=== PATIENT | male | born 1940 | race Caucasian/White ===

== ENCOUNTER → 2018-10-05 06:36 | Outpatient (CLI) | payer OTHER, SELFPAY ==
[2018-10-05 08:11] LABS: Blood Urea Nitrogen 18 mg/dL (9-20); Calcium 9.3 mg/dL (8.4-10.2); Carbon Dioxide 29 mmol/L (22-32); Chloride 104 mmol/L (98-107); Estimated Glomerular Filt Rate > 60.0 mL/min (>60); Glucose 102 mg/dL (80-110); HEMOLYSIS < 15 (0-50); Sodium 143 mmol/L (137-145)
[2018-10-05 08:21] LABS: Hematocrit 42.8 % (41-53); Hemoglobin 15.2 g/dL (13.5-17.5); Red Blood Cell Count 4.73 X10^6/uL (4.5-5.9); White Blood Cell Count 3.5 X10^3/uL (4.5-11.0)
[2018-10-05 08:22] LABS: Add Manual Diff / Slide Review NO; Basophils Percent Auto 0.7 % (0-2); Eosinophils Percent Auto 2.8 % (2-4); Lymphocytes Percent Auto 40.7 % (25-40); Mean Corpuscular HGB Conc 35.4 % (30-36); Mean Corpuscular Hemoglobin 32.1 PG (26-34); Mean Corpuscular Volume 90.4 fL (80-100); Monocytes Percent Auto 9.3 % (3-14); Neutrophils Absolute Auto 1600 /uL (3000-5900); Neutrophils Percent Auto 46.5 % (50-75); Platelet Count 164 X10^3/uL (150-400)
== END ==
PROVIDERS: PCP Internal Medicine; Visit Provider Internal Medicine
DX: D70.9 Neutropenia, unspecified (principal)
CPT/HCPCS: 36415; 80048; 85025

== ENCOUNTER → 2019-01-02 09:03 | Outpatient (CLI) | payer OTHER, SELFPAY ==
--- NOTE | 2019-01-02 | DI.RAD.S_ITS ---
PROCEDURE: FL UPPER GI W AIR INDICATIONS: DYSPHAGIA COMPARISON: [facility], CR, CHEST 2 VIEW, 11/01/2016, 11:10. FINDINGS: KUB: Preprocedural baseball inspector and repairer film demonstrates a normal bowel gas pattern. No suspicious abdominal calcifications. Surgical clips project bilaterally over the pelvis. The zipper and button from the patient's pants project over the sacrum. There are mild multilevel degenerative changes of the lumbar spine. Esophagus: Esophageal mucosa is normal on air-contrast views. On single-contrast views, there is normal esophageal peristalsis. No strictures, extrinsic mass effects, or diverticula. No hiatal hernia. There is mild gastroesophageal reflux. Mild residue coating the piriform sinuses and vallecula are noted, which clears with subsequent swallows. There is normal transit of a calibrated barium tablet through the esophagus. Stomach: The stomach is normally distensible, with normal rugal fold thickness. No convincing mucosal masses. Pylorus and duodenal bulb appear normal in morphology. Duodenal folds are normal in thickness as well. IMPRESSION: 1. Mild gastroesophageal reflux. 2. Mild residue collects within the piriform sinuses and vallecula while swallowing, but this clears with subsequent swallows. Consider referral to speech pathology or esophagogastroduodenoscopy if there is continued clinical concern. Dictated by: Aaron Ramos M.D. on 01/02/2019 at 13:52 Approved by: Aaron Ramos M.D. on 01/02/2019 at 14:00
== END ==
PROVIDERS: PCP Internal Medicine; Visit Provider Internal Medicine
DX: R13.10 Dysphagia, unspecified (principal); K21.9 Gastro-esophageal reflux disease without esophagitis
CPT/HCPCS: 74247

== ENCOUNTER → 2019-01-16 11:51 | Outpatient (CLI) | payer OTHER, SELFPAY ==
--- NOTE | 2019-01-16 | DI.RAD.S_ITS ---
PROCEDURE: XR ANKLE LT MIN 3V INDICATIONS: PAIN IN LEFT LEG, ANKLE TECHNIQUE: 3 views of the ankle were acquired. COMPARISON: None. FINDINGS: No acute fracture or dislocation. No significant degenerative change. IMPRESSION: No acute bony abnormality of the left ankle. Dictated by: Addison Cotter M.D. on 01/16/2019 at 12:35 Approved by: Addison Cotter M.D. on 01/16/2019 at 12:36
--- NOTE | 2019-01-16 | DI.US.S_ITS ---
PROCEDURE: US PERIPH VENOUS LOW EXTREM LT INDICATIONS: PAIN IN LEFT LEG, ANKLE TECHNIQUE: Real-time imaging, as well as color and pulse Doppler interrogation, were performed of the lower extremity deep veins from the inguinal ligament to the popliteal fossa. COMPARISON: None. FINDINGS: The deep veins are normally compressible, and free of intraluminal thrombus. Color and pulse Doppler demonstrate normal phasic intraluminal flow. There is normal augmentation response to distal compression maneuver. IMPRESSION: No evidence of DVT in visualized left lower extremity veins. Dictated by: Sammy Capps M.D. on 01/16/2019 at 12:48 Approved by: Sammy Capps M.D. on 01/16/2019 at 12:48
== END ==
PROVIDERS: PCP Internal Medicine; Visit Provider Internal Medicine
DX: M79.605 Pain in left leg (principal); M25.562 Pain in left knee; M25.572 Pain in left ankle and joints of left foot
CPT/HCPCS: 73610; 93971

== ENCOUNTER → 2019-01-17 13:38 | Outpatient (CLI) | payer OTHER, SELFPAY ==
--- NOTE | 2019-01-17 | DI.RAD.S_ITS ---
PROCEDURE: XR KNEE LT 3V INDICATIONS: LEFT KNEE PAIN TECHNIQUE: 3 views of the knee were acquired. COMPARISON: None. FINDINGS: Bones: No fractures or dislocations. Mild tricompartmental knee joint degeneration with small osteophytes. No suspicious bony lesions. Soft tissues: No joint effusion. No suspicious soft tissue calcifications. IMPRESSION: Mild degenerative joint disease. Dictated by: Thien Olivier M.D. on 01/17/2019 at 17:11 Approved by: Thien Olivier M.D. on 01/17/2019 at 17:12
== END ==
PROVIDERS: PCP Internal Medicine; Visit Provider Internal Medicine
DX: M25.562 Pain in left knee (principal); M17.12 Unilateral primary osteoarthritis, left knee
CPT/HCPCS: 73562

== ENCOUNTER 2019-03-06 11:30 | Outpatient (RCR) | payer OTHER, SELFPAY | END 2019-04-04 10:53 | disposition home or self-care (01) | LOC: SP 11:30 | PROVIDERS: PCP Internal Medicine; Visit Provider Otolaryngology | DX: R13.19 Other dysphagia (principal) | CPT/HCPCS: 92526; 92610 ==

== ENCOUNTER → 2019-03-11 12:24 | Outpatient (CLI) | payer OTHER, SELFPAY ==
--- NOTE | 2019-03-11 | DI.MRI.S_ITS ---
PROCEDURE: MR KNEE LT WO CON INDICATIONS: Unspecified internal derangement of left knee TECHNIQUE: Noncontrast sagittal PD fast spin echo and T2 fast spin echo with fat saturation, sagittal 3-D FLASH with fat saturation; coronal T1 spin echo and PD fast spin echo with fat saturation, and axial PD fast spin echo with fat saturation through the knee. COMPARISON: [facility], CR, XR KNEE STANDING BILATERAL, 03/05/2019, 7:38. FINDINGS: Image quality: Excellent. Menisci: There is a horizontally oriented longitudinal tear in the body and anterior horn of the lateral meniscus involving the superior articular surface. There is intrasubstance extension into the anterior meniscal root ligament. The medial meniscus demonstrates intrasubstance degenerative signal extending to the superior articular surface and free edge in the body suggestive of minimal degenerative tearing. Cruciate ligaments: The anterior and posterior cruciate ligaments appear intact. Medial structures: There is mild pain ligamentous edema along the medial collateral ligament which demonstrates mild intermediate signal. Findings are compatible with a grade 1 sprain. The semimembranosus tendon insertions and meniscocapsular junction appear intact. Visualized portions of the pes anserinus tendons appear intact without associated bursal fluid collections. Lateral structures: The lateral collateral ligament, long and short heads of the biceps femoris tendon appear grossly intact but attenuated suggestive of mild sprains/strains. The popliteus tendon also appears attenuated proximally at its origin compatible with a mild strain. Iliotibial band appears intact. Anterior structures: The quadriceps and patellar tendons appear intact. There is slight lateral shift of the patella. No femoral trochlear dysplasia or ventral trochlear prominence. There is edema along the lateral patellofemoral ligament with mild partial tearing at its origin. There is also attenuation at the insertion along the patella compatible with mild partial tearing. There is extensive edema along the patellofemoral ligament inferiorly. There is adjacent edema within the lateral aspect of the infrapatellar fat pad. Bones and cartilage: No bone marrow contusions or fractures. The cartilage of the medial and lateral femorotibial compartments, as well as the patellofemoral compartment, appears normal in thickness. Joint space: There is physiologic knee joint fluid. There is a small Brown's cyst. Normal appearing synovial plicae are incidentally noted. IMPRESSION: 1. Tearing of the lateral meniscus as described and minimal degenerative tearing of the medial meniscus. 2. Partial tearing along the proximal and distal attachments of the lateral patellofemoral ligament with edema along its course inferiorly. Adjacent edema within the infrapatellar fat-pad laterally may represent reactive changes or impingement. 3. Mild sprain of the lateral collateral ligament as well as mild strains of the biceps femoris tendon and popliteal tendon. 4. Grade 1 sprain of the MCL. Dictated by: Johnny James M.D. on 03/11/2019 at 16:47 Approved by: Johnny James M.D. on 03/11/2019 at 16:58
== END ==
PROVIDERS: PCP Internal Medicine; Visit Provider Orthopaedic Surgery
DX: S83.282A Other tear of lateral meniscus, current injury, left knee, initial encounter (principal); S83.422A Sprain of lateral collateral ligament of left knee, initial encounter; S83.412A Sprain of medial collateral ligament of left knee, initial encounter; M71.22 Synovial cyst of popliteal space [Baker], left knee
CPT/HCPCS: 73721

== ENCOUNTER 2019-06-02 16:21 | Emergency (ER) | payer OTHER, SELFPAY ==
[2019-06-02 16:26] VITALS: BP 189/87; PULSE 67; RESP 17; TEMP 36.9; O2SAT 99
[2019-06-02 16:28] VITALS: BP 189/87; PULSE 67; RESP 17; TEMP 36.9; O2SAT 99
--- NOTE | 2019-06-02 21:40 | ED_ITS ---
HPI - Recheck/Abnormal Lab/Rx <SERA Hatch - Last Filed: 06/02/19 21:40> General Chief Complaint: Recheck/Abnormal Lab/Rx Stated Complaint: splint left arm, says fingers turning colors Time Seen by Provider: 06/02/19 16:49 Source: patient and other (significant other) Mode of arrival: ambulatory Limitations: no limitations History of Present Illness HPI narrative: This is a pleasant 79-year-old gentleman, nonsmoker, with medical history of colon cancer and GERD who presents with his partner for an evaluation of ortho glass splint application and swelling to his left hand. He sustained proximal neck/base 5th metacarpal fracture with mild apex dorsal angulation on05/29/19 after he tripped and fall on the outstretched left hand to break her fall. He had an extensive workup done at that time at [facility] to rule out a stroke. He had a boxer splint applied on left arm for the fracture. He has a follow-up appointment with [facility] on this coming Monday for an evaluation. He reports no significant pain and just taking Tylenol at home as needed. He denies weakness, tingling or numbness to left fingers. He was concerned the swellings to left fingers. He states he has been elevating his affected arm. However, has not been using ice since he was afraid to get his splint wet and thought the coolness would not reach through the splint. Related Data Home Medications Medication Instructions Recorded Confirmed ASPIRIN (Aspirin EC) 81 mg PO Q DAY #0 04/21/11 TRIAMCINOLONE ACETONIDE (NASACORT 2 spray INTRANASAL Q DAY PRN #0 04/21/11 AQ) [VITAMIN D] 1,800 iu PO Q DAY #0 04/21/11 CALCIUM CARBONATE (#CALCIUM 600 mg PO QDAY #0 07/20/12 CARBONATE) Multivitamin, Minerals, and 1 tab PO QDAY #0 07/20/12 (#CENTRUM SILVER) loratadine [Claritin] 10 mg PO PRN #0 07/20/12 famotidine 20 mg PO QDAY #0 02/28/18 Review of Systems <SERA Hatch - Last Filed: 06/02/19 21:40> Review of Systems General: Denies fever, chills, fatigue, malaise, sweats. Respiratory: Denies dyspnea, cough, wheezing Cardiovascular: Denies chest pain, palpitations, orthopnea, edema. Gastrointestinal: Denies nausea, vomiting, abdominal pain, diarrhea, constipation, melena. : Denies dysuria, frequency, incontinence, hematuria, urinary retention. Musculoskeletal: See HPI Neurologic: Denies weakness, headache, numbness, change in speech, confusion, seizures, incoordination. Psychiatric: No concerning psychosocial issues. 12-point review of systems is negative except for those stated above. PFSH <SERA Hatch - Last Filed: 06/02/19 21:40> Medical History History of colon cancer (Acute) GERD (gastroesophageal reflux disease) (Chronic) Family History (Updated 06/02/19 @ 21:23 by SERA Hatch) Other Family history non-contributory Social History (Updated 06/02/19 @ 21:23 by SERA Hatch) Smoking Status: Never smoker Exam <SERA Hatch - Last Filed: 06/02/19 21:40> Narrative Exam Narrative: GEN: Alert, oriented x 3, well appearing and nourished, and in no acute distress. Head: Normal cephalic, atraumatic. No scalp or temporal tenderness, palpable mass or rash. EYES: Pupils are equal, round, and reactive to light and accommodation. Extraocular muscles are intact bilaterally. There is no subconjunctival hemorrhage, exudate and sclera non-icteric. ENT: Hearing grossly intact. Nose without bleeding, purulent discharge. Mucous membrane moist, no mucosal lesion. Throat without erythema, tonsillar hypertrophy or exudate. Uvula in midline, airway patent. Neck: Trachea in midline. No JVD, non-tender without lymphadenopathy. No masses or thyroid megaly. Supple, non-tender and meningeal signs. CARDIAC: No peripheral edema, cyanosis or pallor. Capillary refill is less than 2 seconds. No carotid bruits. RESPIRATORY: No cough, wheezes, stridor, respiratory distress, increase work of breathing, or accessary muscle used. EXT: Left arm Yash wrap removed, patient's arm with boxer's splint applied from previous hospital visit. Cap refills are brisk in all fingertips. Finger tips pink in color. No increasing pain with movement of the fingers, no loss of sensation. Noticed mild ecchymosis to 2nd and 3rd digit in the left hand with moderate swelling without tenderness to palpate. SKIN: Warm, dry, normal color for patient. No erythema, lesions or rash other than L hand. NEUROLOGICAL: Alert and oriented to place, time and person. Sensation and motor function intact bilaterally. No facial droops, dysphasia. PSYCHIATRIC: Good judgement and reason, without hallucinations, abnormal affect or abnormal behaviors during the examination. Initial Vital Signs Initial Vital Signs: Vital Signs Temperature 98.5 F 06/02/19 16:26 Pulse Rate 67 06/02/19 16:26 Respiratory Rate 17 06/02/19 16:26 Blood Pressure 189/87 H 06/02/19 16:26 Pulse Oximetry 99 06/02/19 16:26 <Estrellita Doll MD - Last Filed: 06/04/19 07:46> Initial Vital Signs Initial Vital Signs: Vital Signs Temperature 98.5 F 06/02/19 16:26 Pulse Rate 67 06/02/19 16:26 Respiratory Rate 17 06/02/19 16:26 Blood Pressure 189/87 H 06/02/19 16:26 Pulse Oximetry 99 06/02/19 16:26 Course <SERA Hatch - Last Filed: 06/02/19 21:40> Vital Signs - 8 hr 06/02/19 16:26 06/02/19 16:28 Temperature 98.5 F 98.5 F Pulse Rate 67 67 Respiratory Rate 17 17 Blood Pressure 189/87 H Blood Pressure [Right Arm] 189/87 H Pulse Oximetry 99 99 <Estrellita Doll MD - Last Filed: 06/04/19 07:46> Vital Signs - 8 hr 06/02/19 16:26 06/02/19 16:28 Temperature 98.5 F 98.5 F Pulse Rate 67 67 Respiratory Rate 17 17 Blood Pressure 189/87 H Blood Pressure [Right Arm] 189/87 H Pulse Oximetry 99 99 MDM - Recheck/Abnormal Lab/Rx <SERA Hatch - Last Filed: 06/02/19 21:40> Differential Diagnosis Likely other (encounter for splint check and L hand swelling) Medical Records Attestation: I reviewed the patient's medical records. MDM Narrative Medical decision making narrative: This is a pleasant 79-year-old gentleman who presents with his significant other to check on left boxer splint and left hand swelling. He has fractured his proximal neck/base of 5th metacarpal, status post FOOSH on 05/29/2019 while he was taking a day trip to [facility]. He was evaluated and treated at [facility] and [facility]. He is concerned of his left hand swelling and decided to visit ER today for re-evaluation. His fingertips are pink, red brisk cap refills, warmth to touch, and the sensation is intact in all fingertips on affected hand. With the active movement of his fingers per request, his pain did not change from the baseline. The patient reports the pain is not significant at all and he has been taking Tylenol as needed. Noticed moderate swelling to 2nd and 3rd fingers which is not covered under the splint with mild ecchymosis. However, the patient did not complain of pain when these areas were palpated. The patient and his partner was assured with negative findings of compartment syndrome. The patient was instructed to elevate his affected arm above the chest level and continue to use RICE th erapy and to his appointment with scheduled [facility] this coming Monday. We discussed about red flag symptoms such as severe pain it is not proportion, tingling/numbness, pale and cool finger tips, delayed cap refill since these are signs of compartment syndrome and he should be evaluated in ED after loosing his Yash wrap on splint. All questions were addressed at this time and the patient and significant other agrees with findings treatment plan. Discharge Plan Departure Patient Disposition: Home Clinical Impression: History of fracture of hand, Aftercare for cast or splint check or change Discharge Date/Time: 06/02/19 17:32 Interventions: ED Discharge Assessment Last Done: 06/02/19 17:32 Instructions: How to Take Care of Your Splint Activity Restrictions/Additional Instructions: You are seen here today for history left 5th metacarpal fracture in her hand and recheck here splint and hand swelling]. The clinical exam ensures that you do have good circulation and sensation. You are able to move your fingers without increasing pain. You're fingertips warm and has brisk capillary refill. Radial pulse is strong in left hand. What to do: *Continue to Take your medications *Follow up with your primary care provider in 2-3 days and follow up call for an appointment and with [facility] orthopedist on this coming Monday as scheduled. Let them know you were seen in the ED and that we asked you to be seen in follow up. *Return to ED if you have any new, worsening, or concerning symptoms, such as [increasing pain, unable to move her fingers, numbness tingling, cool and pale finger tips, chest pain, difficulty breathing, unable to tolerate fluids, fever, and any other acute concerns]. Prescriptions: No Action ASPIRIN (Aspirin EC) 81 mg PO Q DAY Qty: 0 RF: 0 [VITAMIN D] 1,800 iu PO Q DAY Qty: 0 RF: 0 TRIAMCINOLONE ACETONIDE (NASACORT AQ) 2 spray Intranasal Q DAY PRN Qty: 0 RF: 0 CALCIUM CARBONATE (#CALCIUM CARBONATE) 600 mg PO QDAY Qty: 0 RF: 0 loratadine [Claritin] 10 MG tablet 10 mg PO PRN Qty: 0 RF: 0 Multivitamin, Minerals, and (#CENTRUM SILVER) 1 tab PO QDAY Qty: 0 RF: 0 famotidine 20 MG tablet 20 mg PO QDAY Qty: 0 RF: 0 Referrals: [facility] [Outside] Obi Horton MD [Primary Care Provider] -
== END 2019-06-02 17:32 | disposition home or self-care (01) ==
PROVIDERS: Emergency Provider Nurse Practitioner Family; PCP Internal Medicine
DX: S62.611D Displaced fracture of proximal phalanx of left index finger, subsequent encounter for fracture with routine healing (principal); W01.0XXD Fall on same level from slipping, tripping and stumbling without subsequent striking against object, subsequent encounter; Z47.89 Encounter for other orthopedic aftercare
CPT/HCPCS: 99282

== ENCOUNTER → 2021-03-11 14:31 | Outpatient (ROUT) | payer MEDICARE, SELFPAY ==
[2021-03-11 15:02] LABS: BUN Creatinine Ratio 21.4 (6-22); Blood Urea Nitrogen 18 mg/dL (9-20); Calcium 10.2 mg/dL (8.4-10.2); Carbon Dioxide 27 mmol/L (22-32); Chloride 105 mmol/L (98-107); Cholesterol 131 mg/dL (140-199); Estimated Glomerular Filt Rate > 60.0 mL/min (>60); Glucose 92 mg/dL (80-110); HDL Cholesterol 69 mg/dL (40-60); HEMOLYSIS < 15 (0-50); LDL Cholesterol Calculated 43 mg/dL (<100); Potassium 4.8 mmol/L (3.4-5.1); Sodium 140 mmol/L (137-145); Triglycerides 94 mg/dL (35-150)
[2021-03-11 15:29] LABS: Add Manual Diff / Slide Review NO; Basophils Absolute Auto 0 /uL (0-100); Basophils Percent Auto 0.5 % (0-2); Eosinophils Absolute Auto 100 /uL (0-450); Eosinophils Percent Auto 1.8 % (2-4); Hematocrit 47.1 % (41-53); Hemoglobin 16.3 g/dL (13.5-17.5); Lymphocytes Absolute Auto 1600 /uL (1100-4500); Lymphocytes Percent Auto 28.7 % (25-40); Mean Corpuscular HGB Conc 34.6 % (30-36); Mean Corpuscular Hemoglobin 31.8 PG (26-34); Monocytes Absolute Auto 400 /uL (0-900); Monocytes Percent Auto 7.7 % (3-14); Neutrophils Absolute Auto 3400 /uL (1500-7000); Neutrophils Percent Auto 61.3 % (50-75); Platelet Count 170 X10^3/uL (150-400); Red Blood Cell Count 5.12 X10^6/uL (4.5-5.9); Red Cell Distribution Width 12.9 % (11.6-14.8); White Blood Cell Count 5.5 X10^3/uL (4.5-11.0)
[2021-03-11 21:51] LABS: Aspartate Aminotransferase 40 IU/L (17-59)
== END ==
PROVIDERS: PCP Internal Medicine; Visit Provider Internal Medicine
DX: D70.9 Neutropenia, unspecified (principal)
CPT/HCPCS: 80048; 80061; 84450; 85025

== ENCOUNTER → 2021-11-02 07:37 | Outpatient (CLI) | payer MEDICARE, SELFPAY ==
[2021-11-02 08:59] LABS: Aspartate Aminotransferase 31 IU/L (17-59); BUN Creatinine Ratio 23.2 (6-22); Blood Urea Nitrogen 19 mg/dL (9-20); Calcium 9.8 mg/dL (8.4-10.2); Carbon Dioxide 30 mmol/L (22-32); Chloride 106 mmol/L (98-107); Cholesterol 130 mg/dL (140-199); Estimated Glomerular Filt Rate > 60.0 mL/min (>60); Glucose 99 mg/dL (80-110); HDL Cholesterol 67 mg/dL (40-60); HEMOLYSIS < 15 (0-50); LDL Cholesterol Calculated 42 mg/dL (<100); Potassium 4.4 mmol/L (3.4-5.1); Sodium 139 mmol/L (137-145); Triglycerides 106 mg/dL (35-150)
== END ==
PROVIDERS: PCP Internal Medicine; Referring Provider Internal Medicine; Visit Provider Internal Medicine
DX: E78.2 Mixed hyperlipidemia (principal)
CPT/HCPCS: 36415; 80048; 80061; 84450

== ENCOUNTER → 2022-02-22 06:39 | Outpatient (CLI) | payer OTHER, SELFPAY ==
[2022-02-22 08:25] LABS: Blood Urea Nitrogen 13 mg/dL (9-20); Calcium 9.6 mg/dL (8.4-10.2); Carbon Dioxide 28 mmol/L (22-32); Chloride 108 mmol/L (98-107); Estimated Glomerular Filt Rate > 60 mL/min (>60); Glucose 97 mg/dL (80-110); HEMOLYSIS 16 (0-50); Potassium 4.3 mmol/L (3.4-5.1); Sodium 141 mmol/L (137-145)
== END ==
PROVIDERS: Family Provider Internal Medicine; PCP Internal Medicine; Referring Provider Internal Medicine; Visit Provider Internal Medicine
DX: E78.2 Mixed hyperlipidemia (principal); R35.1 Nocturia
CPT/HCPCS: 36415; 80048; 83036

== ENCOUNTER → 2022-02-24 07:27 | Outpatient (CLI) | payer OTHER, SELFPAY ==
[2022-02-24 08:58] LABS: Prostate Specific Antigen < 0.064 ng/mL (0.10-4.00)
== END ==
PROVIDERS: Family Provider Internal Medicine; PCP Internal Medicine; Referring Provider Specialist; Visit Provider Specialist
DX: R97.20 Elevated prostate specific antigen [PSA] (principal)
CPT/HCPCS: 36415; 84153

== ENCOUNTER → 2022-12-03 07:52 | Outpatient (CLI) | payer OTHER, SELFPAY ==
[2022-12-03 08:47] LABS: Hemoglobin A1C% w Est Avg Glu 5.3 % (4.0-6.0)
[2022-12-03 08:52] LABS: Alanine Aminotransferase 25 IU/L (<50); Albumin Globulin Ratio 1.5 (1.0-2.8); Alkaline Phosphatase 87 U/L (38-126); Aspartate Aminotransferase 29 IU/L (17-59); Bilirubin Total 0.7 mg/dL (0.2-1.3); Blood Urea Nitrogen 15 mg/dL (9-20); Carbon Dioxide 30 mmol/L (22-32); Chloride 101 mmol/L (98-107); Cholesterol 112 mg/dL (140-199); Estimated Glomerular Filt Rate > 60 mL/min (>60); Globulin 2.6 g/dL (1.7-4.1); Glucose 90 mg/dL (80-110); HDL Cholesterol 62 mg/dL (40-60); HEMOLYSIS 21 (0-50); LDL Cholesterol Calculated 39 mg/dL (<100); Potassium 4.4 mmol/L (3.4-5.1); Sodium 137 mmol/L (137-145); Total Protein 6.6 g/dL (6.3-8.2); Triglycerides 55 mg/dL (35-150)
== END ==
PROVIDERS: Family Provider Internal Medicine; PCP Internal Medicine; Referring Provider Internal Medicine; Visit Provider Internal Medicine
DX: R73.01 Impaired fasting glucose (principal); E78.2 Mixed hyperlipidemia
CPT/HCPCS: 36415; 80053; 80061; 83036

== ENCOUNTER 2022-12-12 09:12 | Emergency (ER) | payer OTHER, SELFPAY ==
[2022-12-12] VITALS (10 sets, daily range): BP systolic 130–195; BP diastolic 60–79; PULSE 50–57; RESP 16–24; TEMP 36.7; O2SAT 94–99; BMI 23.6
--- NOTE | 2022-12-12 09:27 | DI.RAD.S_ITS ---
PROCEDURE: XR CHEST 1V INDICATIONS: chest pain TECHNIQUE: One view of the chest was acquired. COMPARISON: [facility], , CHEST 2 VIEW, 11/01/2016, 11:10. FINDINGS: Surgical changes and devices: None. Lungs and pleura: Lungs are clear. No pleural effusions or pneumothorax. Chronic interstitial changes noted Mediastinum: Mediastinal contours appear normal. Heart size is normal. Bones and chest wall: No suspicious bony lesions. Overlying soft tissues appear unremarkable. IMPRESSION: No acute cardiopulmonary findings Approved by: Charan Watson M.D. on 12/12/2022 at 9:23
--- NOTE | 2022-12-12 09:46 | ED_ITS ---
HPI - General Adult General Chief complaint: Syncope Stated complaint: Near syncope Time Seen by Provider: 12/12/22 09:41 Source: patient and family Mode of arrival: Ambulatory Limitations: no limitations History of Present Illness HPI narrative: Patient is an 82-year-old male who has had a history of vertigo in the past who states that this morning he was sitting at his computer earlier today. States he started to feel somewhat lightheaded. It was not a specific vertigo sensation. He would no other associated symptoms to include chest pain or shortness of breath or headache or palpitations or nausea or vomiting. He got up to go to the bathroom and stated that instead he went to his bedroom and ?flopped ?down onto the bed. States the symptoms lasted only a very short period of time. EMS was contacted. Since arrival he has not had any symptoms. Related Data Home Medications Medication Instructions Recorded Confirmed famotidine 20 mg tablet 20 mg PO QDAY ##0 02/28/18 12/02/22 doxylamine succinate 25 mg tablet 25 mg PO BEDTIME PRN 01/05/22 12/02/22 (Unisom (doxylamine)) fluticasone propionate 50 1 spray intranasal DAILY 01/05/22 12/02/22 mcg/actuation nasal spray,suspension (Flonase Allergy Relief) magnesium 250 mg tablet 250 mg PO DAILY 01/05/22 12/02/22 lutein 20 mg-zeaxanthin 1,000 mcg 1 cap PO DAILY 12/02/22 12/02/22 capsule multivitamin 1 tab PO DAILY 12/02/22 12/02/22 Previous Rx's Medication Instructions Recorded atorvastatin 10 mg tablet 10 mg PO DAILY #90 tabs 11/14/22 Allergies Allergy/AdvReac Type Severity Reaction Status Date / Time rosuvastatin AdvReac Mild Joint Pain Verified 12/12/22 09:23 Review of Systems Review of Systems ROS Unobtainable: All systems reviewed & are unremarkable except as noted in HPI and below Patient History Medical History Actinic keratosis (~2020) Allergic rhinitis Chicken pox Colon polyps (~1998) Do not resuscitate Gastroesophageal reflux disease without esophagitis GERD (gastroesophageal reflux disease) (~1976) History of colon cancer History of prostate cancer History of urinary incontinence (~2003) Impaired fasting glucose Measles Medicare annual wellness visit, initial Mixed hyperlipidemia Nocturia Prostate cancer (~2003) ASA (stress urinary incontinence), male Vertigo Surgical History Anesthesia History of inguinal hernia repair (~1971) History of inguinal hernia repair (~07/2004) History of radical prostatectomy (~07/2004) Family History Father Cancer Mother Respiratory failure Brother History of elevated PSA Sister COPD (chronic obstructive pulmonary disease) Grandmother Stroke Other Family history non-contributory Social History marital status: number of children: 0 Smoking Status: Never smoker Type(s) of exercise: walking frequency: 3-4 times per week Smoking Status: Never smoker Substance Use Type: does not use Exam Initial Vital Signs Initial Vital Signs: Vital Signs Pulse Oximetry 97 12/12/22 09:14 Const General: cooperative, healthy appearing, comfortable and No ill appearing HENKS Head: normal to inspection and normocephalic Resp Effort & Inspection: normal respiratory effort Auscultation: clear to auscultation bilaterally Cardio Rate: bradycardic Rhythm: regular rhythm GI Inspection: normal to inspection Skin General: no rashes or lesions noted Neuro General: patient alert, patient awake, patient oriented x3 and moves all extr emities Cranial Nerves: CN's II-XI intact bilaterally Cognition: normal cognition Speech: speech normal Gait: normal gait Motor: muscle tone normal throughout Extrem General: normal to inspection and capillary refill normal Psych Appearance: grossly normal and well kempt Scores GCS Alcides coma scale eye opening: Spontaneous [place] coma scale verbal response: Orientated [place] coma scale motor response: Obey commands Alcides coma scale total score: 15 Course Orders Ordered: ED Orders 12/12/22 09:00 Complete Blood Count AUTO DIFF Stat Comprehensive Metabolic Panel Stat Lipase Stat Magnesium Stat Partial Thromboplastin Time Stat Prothrombin Time INR Stat Troponin & CK Cardiac Panel Stat 12/12/22 09:27 XR chest 1V Stat EKG-12 Lead Stat 12/12/22 09:28 COVID19 -Nasal RAPID/Pre-Proc Stat Discontinued Medications Aspirin (Aspirin 81 Mg Chew Tab) 324 mg PO NOW ONE Stop: 12/12/22 09:28 Last Admin: 12/12/22 09:42 Dose: Not Given Documented By: ROCIO Vital Signs Vital signs: Vital Signs - 8 hr 12/12/22 09:23 12/12/22 09:14 12/12/22 09:15 Temperature 98.1 F Pulse Rate 56 L Respiratory Rate 20 Blood Pressure 195/79 H 195/79 H Pulse Oximetry 98 97 Oxygen Delivery Method Room Air 12/12/22 09:15 12/12/22 09:22 12/12/22 09:22 Temperature Pulse Rate 57 L 55 L Respiratory Rate Blood Pressure 181/72 H Pulse Oximetry 98 99 Oxygen Delivery Method 12/12/22 09:30 12/12/22 09:31 12/12/22 09:31 Temperature Pulse Rate 55 L 55 L Respiratory Rate 22 16 Blood Pressure 150/67 H Pulse Oximetry 97 97 Oxygen Delivery Method 12/12/22 10:00 12/12/22 10:00 12/12/22 10:30 Temperature Pulse Rate 50 L 50 L Respiratory Rate 19 21 Blood Pressure 141/64 H Pulse Oximetry 95 96 Oxygen Delivery Method 12/12/22 10:31 12/12/22 10:31 12/12/22 10:52 Temperature Pulse Rate 51 L 50 L Respiratory Rate 24 18 Blood Pressure 133/62 130/60 Pulse Oximetry 95 94 Oxygen Delivery Method Room Air Medical Decision Making Lab Data Lab results reviewed: Yes I reviewed the patient's lab results. 12/12/22 09:00 12/12/22 09:00 Labs: Lab Results 12/12/22 12/12/22 12/12/22 Range/Units 09:00 09:00 09:00 WBC 4.1 L (4.5-11.0) X10^3/uL RBC 5.02 (4.5-5.9) X10^6/uL Hgb 16.0 (13.5-17.5) g/dL Hct 46.1 (41-53) % MCV 91.7 (80-100) fL MCH 31.8 (26-34) PG MCHC 34.7 (30-36) % RDW 13.2 (11.6-14.8) % Plt Count 172 (150-400) X10^3/uL Neut % (Auto) 51.6 (50-75) % Lymph % (Auto) 35.2 (25-40) % Wilkin % (Auto) 7.4 (3-14) % Eos % (Auto) 5.1 H (2-4) % Baso % (Auto) 0.7 (0-2) % Neut # (Auto) 2100 (8595-0069) /uL Lymph # (Auto) 1400 (5804-5407) /uL Wilkin # (Auto) 300 (0-900) /uL Eos # (Auto) 200 (0-450) /uL Baso # (Auto) 0 (0-100) /uL PT 11.1 (10.1-12.7) SECONDS INR 1.0 (0.9-1.3) APTT 33 (26-36) SECONDS Sodium 141 (137-145) mmol/L Potassium 4.9 (3.4-5.1) mmol/L Chloride 101 (98-107) mmol/L Carbon Dioxide 32 (22-32) mmol/L BUN 19 (9-20) mg/dL Creatinine 0.88 (0.66-1.25) mg/dL Estimated GFR > 60 (>60) mL/min BUN/Creatinine Ratio 21.6 (6-22) Glucose 117 H (80-110) mg/dL Calcium 10.1 (8.4-10.2) mg/dL Magnesium 2.2 (1.6-2.3) mg/dL Total Bilirubin 0.6 (0.2-1.3) mg/dL AST 30 (17-59) IU/L ALT 25 (<50) IU/L Alkaline Phosphatase 89 (38-126) U/L Total Creatine Kinase 34 L (55-170) U/L CK-MB (CK-2) TNP CK-MB (CK-2) Rel Index TNP Troponin I < 0.012 (0.01-0.034) ng/mL Total Protein 7.2 (6.3-8.2) g/dL Albumin 4.3 (3.5-5.0) g/dL Globulin 2.9 (1.7-4.1) g/dL Albumin/Globulin Ratio 1.5 (1.0-2.8) Lipase 125 (23-300) U/L SARS-CoV-2 (PCR) (Negative) 12/12/22 Range/Units 09:28 WBC (4.5-11.0) X10^3/uL RBC (4.5-5.9) X10^6/uL Hgb (13.5-17.5) g/dL Hct (41-53) % MCV (80-100) fL MCH (26-34) PG MCHC (30-36) % RDW (11.6-14.8) % Plt Count (150-400) X10^3/uL Neut % (Auto) (50-75) % Lymph % (Auto) (25-40) % Wilkin % (Auto) (3-14) % Eos % (Auto) (2-4) % Baso % (Auto) (0-2) % Neut # (Auto) (9668-6078) /uL Lymph # (Auto) (8437-5960) /uL Wilkin # (Auto) (0-900) /uL Eos # (Auto) (0-450) /uL Baso # (Auto) (0-100) /uL PT (10.1-12.7) SECONDS INR (0.9-1.3) APTT (26-36) SECONDS Sodium (137-145) mmol/L Potassium (3.4-5.1) mmol/L Chloride (98-107) mmol/L Carbon Dioxide (22-32) mmol/L BUN (9-20) mg/dL Creatinine (0.66-1.25) mg/dL Estimated GFR (>60) mL/min BUN/Creatinine Ratio (6-22) Glucose (80-110) mg/dL Calcium (8.4-10.2) mg/dL Magnesium (1.6-2.3) mg/dL Total Bilirubin (0.2-1.3) mg/dL AST (17-59) IU/L ALT (<50) IU/L Alkaline Phosphatase (38-126) U/L Total Creatine Kinase (55-170) U/L CK-MB (CK-2) CK-MB (CK-2) Rel Index Troponin I (0.01-0.034) ng/mL Total Protein (6.3-8.2) g/dL Albumin (3.5-5.0) g/dL Globulin (1.7-4.1) g/dL Albumin/Globulin Ratio (1.0-2.8) Lipase (23-300) U/L SARS-CoV-2 (PCR) Negative (Negative) Imaging Data Chest x-ray: Radiologist's Impression: [place] [id number] [place] [id number] XRay Report Signed Patient: Oracio Gill MR#: [id number] : 1940 Acct:[id number] Age/Sex: 82 / M Date of Service: 12/12/22 Loc: ED Accession Number: [id number] ?? Procedure: XR chest 1V Ordering Provider: Ian Nye D.O. PROCEDURE:? XR CHEST 1V ? INDICATIONS:? chest pain ? TECHNIQUE:? One view of the chest was acquired.? ? COMPARISON:? [facility], , CHEST 2 VIEW, 11/01/2016, 11:10. ? FINDINGS:? ? Surgical changes and devices:? None.? ? Lungs and pleura:? Lungs are clear.? No pleural effusions or pneumothorax.? Chronic interstitial changes noted ? Mediastinum:? Mediastinal contours appear normal.? Heart size is normal.? ? Bones and chest wall:? No suspicious bony lesions.? Overlying soft tissues appear unremarkable.? ? IMPRESSION:? No acute cardiopulmonary findings ? ? ? Approved by: Charan Watson M.D. on 12/12/2022 at 9:23? ECG Data Attestation: I personally reviewed and interpreted this ECG as follows: Interpretation: Sinus bradycardia First-degree AV block, Ventricular rate 56 VT interval 288 milliseconds Normal QRS Normal QTC No ST T wave changes MDM Narrative Medical decision making narrative: Patient has been asymptomatic since arrival here in the emergency department he ambulated without issue. Was bradycardic and does have a first-degree AV block but no other arrhythmias. Labs are unremarkable. Chest x-ray is unremarkable. Considered arrhythmia. I did discuss this with the patient. Discussed the possibility of him having a Holter monitor ordered by his primary doctor. He has no focal neurologic symptoms that make me concerned for CVA/TIA. Also considered vertigo however he is asymptomatic now and what he describes his more consistent with a lightheadedness and not vertigo. Low suspicion for ACS. I did discuss all this with the patient and family at bedside. Will discharge patient home with strict return precautions. He expressed understanding and agreement. Discharge Plan Departure Patient Disposition: Home Clinical Impression: Dizziness Instructions: DI for Dizziness-Nonvertigo Activity Restrictions/Additional Instructions: I do recommend that you continue to take all of your medications as directed. I would also recommend that you take your blood pressure at home. Contact your primary doctor for follow-up to discuss the indications for a Holter monitor. Return to the emergency department for any new symptoms. Prescriptions: No Action famotidine 20 MG tablet 20 mg PO QDAY Qty: 0 atorvastatin 10 mg tablet 10 mg PO DAILY Qty: 90 3RF multivitamin Tablet 1 tab PO DAILY lutein-zeaxanthin 20 mg- 1,000 mcg capsule 1 cap PO DAILY fluticasone propionate [Flonase Allergy Relief] 50 mcg/actuation spray,suspension 1 spray intranasal DAILY Rx Instructions: administer into each nostril Unisom (doxylamine) 25 mg tablet 25 mg PO BEDTIME PRN magnesium 250 mg tablet 250 mg PO DAILY Referrals: Obi Horton MD [Primary Care Provider] - Stand Alone Forms: Patient Portal/API
[2022-12-12 10:02] LABS: COVID19 -Nasal RAPID Negative (Negative)
[2022-12-12 10:04] LABS: Add Manual Diff / Slide Review NO; Basophils Absolute Auto 0 /uL (0-100); Basophils Percent Auto 0.7 % (0-2); Eosinophils Absolute Auto 200 /uL (0-450); Eosinophils Percent Auto 5.1 % (2-4); Hematocrit 46.1 % (41-53); Lymphocytes Absolute Auto 1400 /uL (1100-4500); Lymphocytes Percent Auto 35.2 % (25-40); Mean Corpuscular HGB Conc 34.7 % (30-36); Mean Corpuscular Hemoglobin 31.8 PG (26-34); Mean Corpuscular Volume 91.7 fL (80-100); Monocytes Absolute Auto 300 /uL (0-900); Monocytes Percent Auto 7.4 % (3-14); Neutrophils Absolute Auto 2100 /uL (1500-7000); Neutrophils Percent Auto 51.6 % (50-75); Platelet Count 172 X10^3/uL (150-400); Prothrombin Time 11.1 SECONDS (10.1-12.7); Red Blood Cell Count 5.02 X10^6/uL (4.5-5.9); Red Cell Distribution Width 13.2 % (11.6-14.8); White Blood Cell Count 4.1 X10^3/uL (4.5-11.0)
[2022-12-12 10:07] LABS: PTT Partial Thromboplastin Tim 33 SECONDS (26-36)
[2022-12-12 10:20] LABS: Alanine Aminotransferase 25 IU/L (<50); Albumin 4.3 g/dL (3.5-5.0); Albumin Globulin Ratio 1.5 (1.0-2.8); Alkaline Phosphatase 89 U/L (38-126); Aspartate Aminotransferase 30 IU/L (17-59); BUN Creatinine Ratio 21.6 (6-22); Bilirubin Total 0.6 mg/dL (0.2-1.3); Blood Urea Nitrogen 19 mg/dL (9-20); Calcium 10.1 mg/dL (8.4-10.2); Carbon Dioxide 32 mmol/L (22-32); Chloride 101 mmol/L (98-107); Creatine Kinase 34 U/L (55-170); Estimated Glomerular Filt Rate > 60 mL/min (>60); Globulin 2.9 g/dL (1.7-4.1); Glucose 117 mg/dL (80-110); Lipase 125 U/L (23-300); Magnesium 2.2 mg/dL (1.6-2.3); Potassium 4.9 mmol/L (3.4-5.1); Sodium 141 mmol/L (137-145); Total Protein 7.2 g/dL (6.3-8.2)
[2022-12-12 10:30] LABS: Troponin I < 0.012 ng/mL (0.01-0.034)
[2022-12-12 11:43] LABS: HEMOLYSIS < 15 (0-50)
== END 2022-12-12 11:10 | disposition home or self-care (01) ==
PROVIDERS: Emergency Provider Emergency Medicine; Family Provider Internal Medicine; PCP Internal Medicine
DX: R42 Dizziness and giddiness (principal); R07.9 Chest pain, unspecified; Z20.822 Contact with and (suspected) exposure to COVID-19
CPT/HCPCS: 36415; 71045; 80053; 82550; 83690; 83735; 84484; 85025; 85610; 85730; 87635; 93005; 93010; 99283; 99284; C9803

== ENCOUNTER → 2023-02-04 08:38 | Outpatient (CLI) | payer OTHER, SELFPAY | PROVIDERS: Family Provider Internal Medicine; PCP Internal Medicine; Visit Provider Nurse Practitioner Family | DX: J02.9 Acute pharyngitis, unspecified (principal) | CPT/HCPCS: 87070 ==

== ENCOUNTER → 2023-07-20 09:21 | Outpatient (CLI) | payer OTHER, SELFPAY ==
[2023-07-20 10:46] LABS: Hematocrit 43.8 % (41-53); Hemoglobin 15.3 g/dL (13.5-17.5); Mean Corpuscular HGB Conc 35.1 % (30-36); Mean Corpuscular Hemoglobin 31.8 PG (26-34); Mean Corpuscular Volume 90.8 fL (80-100); Platelet Count 177 X10^3/uL (150-400); Red Blood Cell Count 4.82 X10^6/uL (4.5-5.9); Red Cell Distribution Width 13.2 % (11.6-14.8); White Blood Cell Count 4.7 X10^3/uL (4.5-11.0)
[2023-07-20 10:49] LABS: Alanine Aminotransferase 26 IU/L (<50); Albumin 4.1 g/dL (3.5-5.0); Albumin Globulin Ratio 1.6 (1.0-2.8); Alkaline Phosphatase 77 U/L (38-126); Amylase 93 U/L (30-110); Aspartate Aminotransferase 28 IU/L (17-59); BUN Creatinine Ratio 19.8 (6-22); Bilirubin Total 0.7 mg/dL (0.2-1.3); Blood Urea Nitrogen 18 mg/dL (9-20); Calcium 10.1 mg/dL (8.4-10.2); Carbon Dioxide 31 mmol/L (22-32); Chloride 100 mmol/L (98-107); Estimated Glomerular Filt Rate > 60 mL/min (>60); Globulin 2.5 g/dL (1.7-4.1); Glucose 77 mg/dL (80-110); HEMOLYSIS < 15 (0-50); Lipase 228 U/L (23-300); Sodium 137 mmol/L (137-145); Total Protein 6.6 g/dL (6.3-8.2)
[2023-07-20 11:47] LABS: Appearance Urine UA CLEAR; Bilirubin Urine UA NEGATIVE (NEGATIVE); Color Urine UA YELLOW; Glucose Urine UA NEGATIVE (Negative); Ketones Urine UA NEGATIVE (NEGATIVE); Leukocyte Esterase Urine UA NEGATIVE (NEGATIVE); Nitrite Urine UA NEGATIVE (Negative); Occult Blood Urine UA NEGATIVE (Negative); Protein Urine UA NEGATIVE (Negative); Specific Gravity Urine UA 1.015 (1.000-1.035); Urobilinogen Urine UA 0.2 E.U./dL (0.2); pH Urine UA 7.5 (4.5-8.0)
[2023-07-20 12:23] LABS: Bacteria Urine None Seen; Culture Indicated Urine Cult Not Indicated; RBC Urine None Seen (0-5/HPF); Squamous Epithelial Cell Urine None Seen (0-5/HPF); WBC Urine None Seen (0-5/HPF)
== END ==
PROVIDERS: Family Provider Internal Medicine; PCP Internal Medicine; Referring Provider Internal Medicine; Visit Provider Internal Medicine
DX: R10.9 Unspecified abdominal pain (principal)
CPT/HCPCS: 36415; 80053; 81001; 82150; 83690; 85027

== ENCOUNTER → 2024-03-15 08:07 | Outpatient (CLI) | payer OTHER, SELFPAY ==
[2024-03-15 08:54] LABS: BUN Creatinine Ratio 18.3 (6-22); Blood Urea Nitrogen 17 mg/dL (9-20); Calcium 10.1 mg/dL (8.4-10.2); Carbon Dioxide 34 mmol/L (22-32); Chloride 105 mmol/L (98-107); Estimated Glomerular Filt Rate > 60 mL/min (>60); Glucose 73 mg/dL (80-110); HEMOLYSIS < 15 (0-50); Potassium 4.3 mmol/L (3.4-5.1); Sodium 140 mmol/L (137-145)
[2024-03-15 09:40] LABS: Hematocrit 43.8 % (41-53); Hemoglobin 15.1 g/dL (13.5-17.5); Mean Corpuscular HGB Conc 34.4 % (30-36); Mean Corpuscular Hemoglobin 31.9 PG (26-34); Mean Corpuscular Volume 92.7 fL (80-100); Platelet Count 191 X10^3/uL (150-400); Red Blood Cell Count 4.72 X10^6/uL (4.5-5.9); Red Cell Distribution Width 13.3 % (11.6-14.8); White Blood Cell Count 5.4 X10^3/uL (4.5-11.0)
[2024-03-15 09:42] LABS: Add Manual Diff / Slide Review YES
[2024-03-15 10:26] LABS: Neutrophils Absolute Manual 2646 /uL (3000-5900); RBC Morphology Normal Morphology; Total Cells Counted 100
== END ==
LOC: RESP 08:08
PROVIDERS: Family Provider Internal Medicine; PCP Internal Medicine; Referring Provider Orthopaedic Surgery; Visit Provider Orthopaedic Surgery
DX: Z01.818 Encounter for other preprocedural examination (principal); Z01.812 Encounter for preprocedural laboratory examination
CPT/HCPCS: 36415; 80048; 85007; 85025; 93005

== ENCOUNTER → 2024-03-16 14:28 | Outpatient (CLI) | payer OTHER, SELFPAY ==
--- NOTE | 2024-03-16 14:29 | DI.CT.S_ITS ---
PROCEDURE: CT UE LT WO CON INDICATIONS: Primary osteoarthritis, left shoulder TECHNIQUE: Noncontrast 0.75 mm thick sections acquired from the acromioclavicular joint to the inferior scapula, with coronal and sagittal reformatting. COMPARISON: [facility] [place], [place], XR SHOULDER 2+ VIEWS LEFT, 03/06/2024, 14:51. FINDINGS: Image quality: Excellent. Bones: No acute fracture or dislocation. Mild acromioclavicular joint space narrowing with tiny juxta-articular osteophytosis and subchondral cysts. Mild glenohumeral joint space narrowing. Narrowing of the acromiohumeral interval measuring 5 mm. No displaced rib fractures. Soft tissues: No suspicious pulmonary nodule or consolidation. Mild calcification of the thoracic aorta. No visualized coronary vessel calcifications. No enlarged lymph nodes by size criteria. Heart size is at the upper limits of normal. IMPRESSION: 1. No acute fracture or dislocation. 2. Mild acromioclavicular and glenohumeral joint osteoarthritis. 3. Narrowing of the acromiohumeral interval measuring 5 mm compatible with rotator cuff pathology, as seen MRI shoulder dated April 22, 2015. If clinical symptoms persist, a repeat MRI can be performed for further evaluation. Dictated by: Natalie Weber M.D. on 03/17/2024 at 8:39 Approved by: Natalie Weber M.D. on 03/17/2024 at 8:44
== END ==
PROVIDERS: Family Provider Internal Medicine; PCP Internal Medicine; Referring Provider Orthopaedic Surgery; Visit Provider Orthopaedic Surgery
DX: M19.012 Primary osteoarthritis, left shoulder (principal)
CPT/HCPCS: 73200

== ENCOUNTER 2024-04-25 12:54 | Day surgery (SDC) | payer OTHER, SELFPAY ==
[2024-04-16 12:30] VITALS: BMI 23.0
--- NOTE | 2024-04-25 07:35 | DI.RAD.S_ITS ---
PROCEDURE: XR SHOULDER LT MIN 2V INDICATIONS: TSA TECHNIQUE: 1 views of the shoulder were acquired. COMPARISON: [facility] [place], JESS, XR SHOULDER 2+ VIEWS LEFT, 03/06/2024, 14:51. FINDINGS: Bones: Left shoulder arthroplasty. Hardware appears intact without evidence of complication. No fractures or dislocations. No suspicious bony lesions. Visualized ribs appear intact. Soft tissues: Overlying postsurgical changes. IMPRESSION: Expected postoperative appearance of left shoulder arthroplasty. Dictated by: Jamal Sanders M.D. on 04/25/2024 at 17:33 Approved by: Jamal Sanders M.D. on 04/25/2024 at 17:34
--- NOTE | 2024-04-25 13:07 | P.HP_ITS ---
History of Present Illness History of Present Illness Date Patient Seen: 04/25/24 Time Patient Seen: 13:07 Chief complaint: Left shoulder glenohumeral arthritis Narrative: Patient presents today seen preoperatively for his left shoulder glenohumeral arthritis. He has not had any changes in his symptoms and he still has severe glenohumeral pain. Still has significant limitation with range of motion. We would like to go forward with surgery today. [facility] Medical History (Updated 04/16/24 @ 13:15 by Meghana Gerber RN) Arthritis Prostate cancer (2003) Seasonal allergies Essential hypertension History of colonic polyps BPPV (benign paroxysmal positional vertigo) History of prostate cancer Impaired fasting glucose Allergic rhinitis Do not resuscitate Gastroesophageal reflux disease without esophagitis Mixed hyperlipidemia ASA (stress urinary incontinence), male Actinic keratosis (~2020) Measles Chicken pox Vertigo History of urinary incontinence (~2003) GERD (gastroesophageal reflux disease) (~1976) Surgical History (Updated 04/16/24 @ 13:13 by Meghana Gerber RN) Hx of bilateral cataract extraction Anesthesia History of radical prostatectomy (~07/2004) History of inguinal hernia repair (~07/2004) History of inguinal hernia repair (~1971) Family History Father Cancer Mother Respiratory failure Brother History of elevated PSA Sister COPD (chronic obstructive pulmonary disease) Grandmother Stroke Other Family history non-contributory Social History marital status: number of children: 0 household members: spouse Smoking Status: Former smoker alcohol intake: current Type(s) of exercise: walking frequency: 3-4 times per week Meds Home Medications and Allergies Home Medications Medication Instructions Recorded Confirmed Type famotidine 20 mg tablet 20 mg PO QDAY ##0 02/28/18 04/16/24 History doxylamine succinate 25 mg tablet 25 mg PO BEDTIME PRN Sleep 01/05/22 04/16/24 History (Unisom (doxylamine)) magnesium 250 mg tablet 250 mg PO DAILY 01/05/22 04/16/24 History multivitamin 1 tab PO DAILY 12/02/22 04/16/24 History lutein 20 mg-zeaxanthin 1,000 mcg 2 cap PO DAILY 07/20/23 04/16/24 History capsule amlodipine 5 mg tablet 5 mg PO DAILY #90 tabs 12/20/23 04/16/24 Rx fluticasone propionate 50 1 spray intranasal DAILY PRN 01/09/24 04/16/24 History mcg/actuation nasal Seasonal allergies spray,suspension (Flonase Allergy Relief) atorvastatin 10 mg tablet 10 mg PO DAILY #90 tabs 02/08/24 04/16/24 Rx naproxen sodium 220 mg capsule 220 mg PO DAILY PRN Pain 04/16/24 04/16/24 History (Aleve) Allergies Allergy/AdvReac Type Severity Reaction Status Date / Time rosuvastatin AdvReac Mild Joint Pain Verified 01/29/24 08:20 Review of Systems Review of Systems ROS: Yes All systems reviewed with the patient and are negative except as otherwise documented Exam Narrative Exam Narrative: HEENT: Head atraumatic eyes anicteric moist mucous membranes Cardiovascular: Palpable peripheral pulses extremities are warm and well perfused Respiratory: Breathing comfortably on room air Psychiatric: Appropriate mood and affect Neuro: No acute deficits Musculoskeletal: Exam of left upper extremity demonstrates limited range of motion with forward elevation as noted on previous office note. Sensation intact in median, radial, ulnar, axillary nerve distributions. Assessment & Plan Assessment & Plan narrative: Assessment: Left rotator cuff tear arthropathy Plan: As discussed previously we will plan on a left reverse total shoulder arthroplasty. Risks and benefits of surgery were discussed again including the risk of infection, damage to internal structures, bleeding, nerve injury, instability, need for revision surgery, blood clots, anesthesia and . No guarantees were made regarding outcomes. Patient expressed understanding and accepted these risks and wished to go forward with surgery and consent was signed.
[2024-04-25] MEDS: LACTATED RINGERS 1,000 ML 42 ML IV ×2 (13:25→15:58)
[2024-04-25] MEDS: ACETAMINOPHEN 325 MG TABLET 975 MG PO (13:25)
[2024-04-25 13:27] VITALS: BP 147/73; PULSE 60; RESP 16; TEMP 36.4; O2SAT 100; BMI 23.5
--- NOTE | 2024-04-25 14:36 | SUR.PREOP ---
Block start time [1419 time out - needle [id number]] . Monitoring initiated and maintained throughout procedure. Oxygen and medications given per anesthesiologist. Patient remained stable throughout procedure, no adverse reactions noted. Block end time [1428].
[2024-04-25] MEDS: CEFAZOLIN 2 GM/100 ML PREMIX 100 ML IV (15:27)
--- NOTE | 2024-04-25 15:44 | SUR.OPER ---
Beach chair with Kobe/Carrie shoulder positioner. Lower body on padded OR bed. Head in foam padded head cradle, secured with straps. Non-operative arm secured <90 degrees abduction. Pillow under knees. Safety belt at thigh. Cloth tape over blanket over lower legs.
[2024-04-25] MEDS: BUPIVACAINE 0.25% (PF) 60 ML, EPINEPHrine 0.3 MG INJ (15:48)
[2024-04-25] MEDS: TRANEXAMIC ACID 1,000 MG VIAL 1000 MG INJ ×2 (15:49→15:50)
--- NOTE | 2024-04-25 16:32 | PM.OP.1 ---
Operative Date/Time/Diagnoses Date of procedure: 04/25/24 Time of procedure: 16:32 Pre-op diagnosis: Left glenohumeral arthritis Post-op diagnosis: same Procedure & Clinicians Procedure: Left reverse total shoulder arthroplasty Same procedure as scheduled: Yes Indications: Indications: This is a who has rotator cuff arthropathy. Symptoms have been present for years, insidious onset. Patient has failed a reasonable attempt at conservative therapy. After extensive discussion in clinic, they wished to go forward with surgery. Risks and benefits were described including the risk of infection, bleeding, damage to internal structures including nerves. We also discussed the risk of failure of surgery and the need for revision surgery as well as the risk of anesthesia. The patient expressed understanding with these risks and wished to go forward with surgery. Surgeon: Tomas Yuan Insurance Executive: Mary Hamlin Anesthesia Type: General Operative Notes Findings: Findings: Osteoarthritis of the glenoid and humeral head as well as a defient rotator cuff as noted on preoperative imaging and under direct visualization Closure Type: primary Specimen(s): none sent Prosthetic devices, grafts, tissues, transplants, or devices: Tornier implants Base plate: standard 25 mm, +3 mm offset Glenosphere: Standard 36 mm Stem: Perform 3+ Poly: +0 concentric Estimated Blood Loss (mL): 100 Procedure in detail: Patient was seen in the preoperative holding unit. The correct left shoulder was identified and marked with my initials. Again we discussed the risks and benefits of surgery and they wished to go forward with surgery. The patient was brought back to the operating room and placed supine on the operating table. Smooth endotracheal intubation was performed by anesthesia. All prominences were padded and they were placed into the beach chair position. Intravenous antibiotics were given. The left shoulder was then prepped with the standard sterile preparation and draping. A time-out was then performed in my initials were again identified on the correct shoulder. 1 g of IV tranexamic acid was given. A standard deltopectoral incision was made. Skin flaps were made. The cephalic vein was identified and retracted laterally. This was protected throughout the remainder of the case. Sharp dissection was made along the deltoid, subacromial and subcoracoid space to release adhesions. The conjoined tendon was identified and the axillary nerve was palpated and continuous using the tug test. It was protected throughout the remainder of the case. A brown retractor was placed underneath the deltoid muscle and a darach retractor underneath the conjoint tendon. The subscapularis muscle was ntoed to be intact. The anterior circumflex artery and associated veins on the lower border of the subscapularis were identified and tied off using 0-Vicryl. The biceps tendon was identified in the bicipital groove. This was released from its sheath, and taken from its origin on the glenoid and tied into the pectoralis tendon for a solid tenodesis. We then began a subscapularis peel. The subscapularis was tagged with an Ethibond suture. A 360 degree circumferential release of the subscapularis was performed with protection of the axillary nerve. The coracohumeral ligament was released at the base of the coracoid. The shoulder was then dislocated. Osteophytes were removed using combination of rongeur and osteotome. The rotator cuff was noted to be insufficient. An intramedullary guide was used set at version of 20?. Using an oscillating saw a conservative humeral head cut was made. Impaction reamers were reamed up to a size 3 stem with a built-in angle 135?. A neck protector was placed. Attention was then turned to the glenoid. After retracting the humeral head posteriorly a circumferential release was performed of the capsule with protection of the axillary nerve. The labrum was then released starting at the biceps anchor and going around the rim a small amount of triceps was released from the inferior glenoid. A center guide pin was then placed using the guide, followed by Reamer. After adequate cartilage was removed the boss was reamed and the centeral hole was drilled and measured. The base plate was then implanted and screwed into place. The peripheral screws were then sequentially drilled, measured, and placed. A 36 standard glenosphere was then selected and screwed into place onto the base plate. Turning back to the humerus, the humeral head was delivered and trialed with a 0 concentric. The arm was taken through range of motion and this was felt to be stable. The trial was then removed and a dilute Betadine wash was then performed with 1 L of sterile saline. Before placing the final implant, drill holes were made in the bicipital groove for the subscapularis repair, and sutures were passed through the drill holes. The final stem was then impacted into the humerus. The shoulder was then reduced and again brought through range of motion and was felt to be stable. The subscapularis was then repaired using a modified racking hitch with nice loupes. The skin was closed with 2-0 vicryl and 3-0 Monocryl followed by Aquacel dressing. Patient was awoken from anesthesia and brought back to the postoperative recovery unit without issue. They were placed into a sling. Assisting participation: This operation could not have been safely performed (without compromising the technical results or length of the procedure) without the assistance of a skilled surgical device sales representative. The surgical device sales representative was medically necessary for proper positioning, retraction and manipulation of instruments, proper exposure, graft prep, and manipulation of tissue. Complications: none Post-operative Condition: stable Disposition: PACU Plan for aftercare: Postoperative instructions: Sling to remain on for 6 weeks. No external rotation past neutral for 6 weeks. Okay for the sling to come off for shower. Okay to shower over the Aquacel dressing. If any water gets underneath the dressing, remove the dressing. First postoperative visit in 2 weeks.
[2024-04-25 16:57] VITALS: BP 156/56; PULSE 59; RESP 18; TEMP 36; O2SAT 94
[2024-04-25 17:04] VITALS: BP 150/59; PULSE 56; RESP 17; O2SAT 98
[2024-04-25 17:15] VITALS: BP 153/67; PULSE 54; RESP 17; O2SAT 97
[2024-04-25 17:23] VITALS: BP 160/64; PULSE 67; RESP 14; TEMP 36.1; O2SAT 98
[2024-04-25 17:26] VITALS: BP 148/59; PULSE 59; RESP 14; O2SAT 96
== END 2024-04-25 18:10 | disposition home or self-care (01) ==
PROVIDERS: Family Provider Internal Medicine; PCP Internal Medicine; Referring Provider Orthopaedic Surgery; Visit Provider Orthopaedic Surgery
PROC: (CPT 23472; principal; 2024-04-25 15:15)
DX: M19.012 Primary osteoarthritis, left shoulder (principal); G89.18 Other acute postprocedural pain; M25.712 Osteophyte, left shoulder
CPT/HCPCS: 23472; 64450; 73030; C1776; J0171; J0690; J1100; J2250; J2405; J2704; J3010

== ENCOUNTER 2024-09-13 09:45 | Outpatient (RCR) | payer OTHER, SELFPAY ==
--- NOTE | 2024-04-26 15:57 | PT-OP ANOTE ---
PT called requesting protocol for pt upcoming evaluation on 04/29. Surgeon's office sent message to triage
--- NOTE | 2024-04-29 15:54 | PT.OIE ---
Current Diagnoses Primary osteoarthritis, left shoulder (04/29/24) Stiffness of left shoulder, not elsewhere classified (04/29/24) Weakness (04/29/24) Past Medical History (Last Updated 04/16/24 @ 13:15 by Meghana Gerber, CYRUS) Actinic keratosis (~2020) Allergic rhinitis Arthritis BPPV (benign paroxysmal positional vertigo) Chicken pox Do not resuscitate Essential hypertension Gastroesophageal reflux disease without esophagitis GERD (gastroesophageal reflux disease) (~1976) History of colonic polyps History of prostate cancer History of urinary incontinence (~2003) Impaired fasting glucose Measles Mixed hyperlipidemia Prostate cancer (2003) Seasonal allergies ASA (stress urinary incontinence), male Vertigo Past Surgical History (Last Updated 04/16/24 @ 13:13 by Meghana Gerber RN) Anesthesia History of inguinal hernia repair (~1971) History of inguinal hernia repair (~07/2004) History of radical prostatectomy (~07/2004) Hx of bilateral cataract extraction Visit Care Team Role Provider Type Obi Horton MD Family Provider Physician Primary Care Provider Specialty: Internal Medicine Address: [address] [place] [address], [id number] Email: [email or web address] Tomas Yuan MD Attending Provider Physician Referring Provider Specialty: Orthopedics Orthopedic Surgery Address: [address] [place] [address], [id number] Email: [email or web address] [facility] Therapy Initial Evaluation PT-OP-A Visit Information Start: 04/29/24 09:02 Freq: Status: Active Protocol: Document 04/29/24 09:03 NM (Rec: 04/29/24 09:55 NM [id number]) Out-Patient Physical Therapy Visit Information Visit Information Visit Type Initial Evaluation Visit Note 15 visits DOS 04/25/24 Visit Start Time 09:04 Visit Stop Time 09:50 Visit Number 1 Evaluation Information Evaluation Date 04/29/24 Precautions Precautions 4 weeks: 05/23, 6 weeks: 06/06, 8 weeks: 06/20, 10 weeks: 07/04, 12 weeks: 07/18 Reverse TSA precautions (DOS 04/25/24): no IR/Ext, no Ext past neutral Sling for 6 weeks, PROM goal up to 90 deg at 6 weeks and ER to neutral per protocol, No AROM until 6 weeks PT-OP-B Current Condition Start: 04/29/24 09:02 Freq: Status: Active Protocol: Document 04/29/24 09:03 NM (Rec: 04/29/24 09:55 NM [id number]) Current Condition History of Current Condition Onset Date DOS 04/25/24 Current Complaints pain, sleeping, mobility, strength History of Current Condition Pt presents with L rTSA on . He had no complications . He presents with his partner , who helped provide hx. Pt has large red bruise on the L biceps muscle belly, unsure if due to surgery or when sleeping. Pt has been wearing the sling, which his partner has been helping assist. Prior to surgery, he was doing exercises from previous PT, but he got tremendous pain in L shoulder- got referral due to rotator cuff tear. Pt reports pain has been well managed, has not been on any pain meds but using cryotherapy 4-5x/day. He has most discomfort with shoulder in sleeping (bed and recliner) . Pt also has nocturia, so has been sleeping in recliner. Partner has moved coffee table , has night lights, removed obstacles. Next follow up with Dr. Yuan: 05/10 (take off dressing and momo). Has midline neck pain as well, hard to look up. Treatment Goals Patient/Caregiver Goals return to normal 2 handed life Prior Functional Status Baseline Function- ADL's Independent Baseline Function- Mobility Independent Current Functional Impairments (Reported) Functional Limitations- ADL's dressing, grooming Functional Limitations- Mobility/Gait reaching, lifting PT-OP-C Subjective Start: 04/29/24 09:02 Freq: Status: Active Protocol: Document 04/29/24 09:03 NM (Rec: 04/29/24 09:55 NM [id number]) OP-PT Subjective Patient Comments Patient Comments see hx above for pt report Patient Questionnaires Quick Dash- Upper Extremity Quick Dash UE Score 46 or 79.5% OP-PT Pain Assessment Location L shoulder Pain Location Details anterior and top of shoulder Intensity 6 Scale Used Numeric (0 - 10) Description Aching Frequency Occasional Pain Aggravating Factors Position Other Pain Aggravating Factors sleeping Pain Alleviating Factors Cold Home Pain Medication Use Pain Medications Used none Comments Pain Comments icing 4x/day (compression), no pain medications PT-OP-E Functional Tests Start: 04/29/24 09:02 Freq: Status: Active Protocol: Document 04/29/24 09:03 NM (Rec: 04/29/24 09:55 NM [id number]) Functional Tests Apley's Scratch Test Action 1- Left N/A Action 1- Right opposite shoulder Action 2- Left N/A Action 2- Right T3 Action 3- Left N/A Action 3- Right T9 PT-OP-F Manual Assessment Start: 04/29/24 09:02 Freq: Status: Active Protocol: Document 04/29/24 09:03 NM (Rec: 04/29/24 16:42 NM [id number]) Manual Assessments Soft Tissue Assessment Soft Tissue Mobility Assessment Increased pectoralis muscle tightness, forward head and shoulders Joint Mobility Assessment Joint Mobility Assessment Right shoulder mobility limited in all planes on contralateral side to surgery PT-OP-J Posture/Palpation/Skin Start: 04/29/24 09:02 Freq: Status: Active Protocol: Document 04/29/24 09:03 NM (Rec: 04/29/24 16:42 NM [id number]) Posture Evaluation Position Standing Head/C-Spine Posture Forward Head T-Spine Posture Increased Kyphosis Shoulder Posture (L) Rounded,(R) Rounded,(L) Forward,(R) Forward Comments Posture Comments L arm positioned in abduction sling. Demonstrates increased foward flexed posture at trunk , neck, and shoulders Palpation Assessment Location L shoulder Palpation Details Tenderness reported along incision, anterior shoulder, AC joint Skin Assessment Incisional Assessment Incision Appearance/Comments Did not remove bandage; dressings clean/dry/intact with no signs of redness or infection Other Assessments Skin Assessment Comments Pt has large red/purple bruise along L biceps and anterior shoulder below surgical site PT-OP-K Range of Motion Start: 04/29/24 09:02 Freq: Status: Active Protocol: Document 04/29/24 09:03 NM (Rec: 04/29/24 09:55 NM [id number]) Shoulder Goniometric Range of Motion Shoulder L PROM Flexion 40 Comments 40 deg passively with forward flexion in pendulum; did not assess others due to surgical precautions R shoulder Flexion 100 Abduction 80 External Rotation at 0 degrees Abduction 40 Internal Rotation Behind Back (text) T9 Comments scaption: 110 deg; demos trunk extension compensation; T3 ER apley PT-OP-M Strength Start: 04/29/24 09:02 Freq: Status: Active Protocol: Document 04/29/24 09:03 NM (Rec: 04/29/24 09:55 NM [id number]) Shoulder Strength Shoulder Manual Muscle Testing Left Comments Did not assess due to surgical precautions Right Flexion 3+ Fair+ Extension 3+ Fair+ Abduction (C5) 3+ Fair+ Adduction 3+ Fair+ External Rotation 3+ Fair+ Internal Rotation 3+ Fair+ PT-OP-Q Treatments Start: 04/29/24 09:02 Freq: Status: Active Protocol: Document 04/29/24 09:03 NM (Rec: 04/29/24 16:42 NM [id number]) Therapeutic Exercises Sitting Exercises towel squeezes Side left Equipment Used 25% effort (submaximal) in C exhaust and muffler repairer around towel, hand on pillow in lap Reps/Minutes 10x5 hold Comments pain free; educated to remain submaximal wrist AROM Sitting Exercise Name flex/ext Side left Equipment Used arm positioned in neutral on a pillow Reps/Minutes 10 ea Comments pain free Therapeutic Activity Therapeutic Activity donning/doffing sling Comments Educated on donning/doffing sling using table for support without weightbearing, R arm to assist with maintaining precautions Partner assisting with donning /doffing Self-Care/Home Management Treatment Education Patient Education Home Exercise Program,Joint Protection,Pain Management Other Education Educated on continuing with cryotherapy for pain management, precautions (no IR raiza behind back, no extension ), and educated on use of pillow behind arm to limit extension (should always be able to see elbow) PT-OP-T Assessment and Plan Start: 04/29/24 09:02 Freq: Status: Active Protocol: Document 04/29/24 09:03 NM (Rec: 04/29/24 16:42 NM [id number]) Physical Therapy Assessment Rehab Potential Rehabilitation Potential Fair Evaluation Complexity Number of Personal Factors/Comorbidities 1-2 Number of Body Systems Impaired 1-2 Impairments Impairments Balance,Edema,Functional Activities,Functional Mobility ,Gait,Integument,Pain,Posture, ROM,Sensation,Soft Tissue Mobility,Strength Other Concerns Barriers to Rehabilitation Pt has limitations in R shoulder AROM/strength as well , including hx of arthritis. Goals 6 Impairment ADLs Impairment unable to perform ADLs Sheet Metal Technician Goal (LTG) Pt will report that he is able to perform all dressing and grooming per PLOF without limitation due to L shoulder or without increase in baseline pain LTG Duration 12 weeks 5 Impairment HEP Impairment not performing HEP Short Term Goal (STG) Pt will report compliance with HEP at least 3x/wk in order to maximize progression with PT STG Duration 6 weeks Fdc Goal (LTG) Pt will report compliance with HEP at least 3x/wk in order to demonstrate smooth transition into maintenance program LTG Duration 12 weeks 4 Impairment strength Impairment L shoulder MMT not tested due to precautions Short Term Goal (STG) Pt will improve L shoulder global strength to at least 4- /5 in order to demonstrate improved strength for ADLs/ activities STG Duration 9 weeks Sheet Metal Technician Goal (LTG) Pt will improve L shoulder global strength to at least 4/ 5 in order to demonstrate improved strength for ADLs/ activities LTG Duration 12 weeks 3 Impairment ROM Impairment L shoulder ER Short Term Goal (STG) Pt will improve L shoulder ER AROM in scaption plane to at least 20 deg in order to demonstrate improved shoulder mobility for dressing and reaching STG Duration 9 weeks Sheet Metal Technician Goal (LTG) Pt will improve L shoulder ER AROM in scaption plane to at least 30 deg in order to demonstrate improved shoulder mobility for dressing and reaching LTG Duration 12 weeks 2 Impairment ROM Impairment L shoulder flexion Short Term Goal (STG) Pt will improve L shoulder flexion AROM in scaption plane to at least 90 deg in order to demonstrate improved shoulder mobility for dressing and reaching STG Duration 9 weeks Sheet Metal Technician Goal (LTG) Pt will improve L shoulder flexion AROM in scaption plane to at least 105 deg in order to demonstrate improved shoulder mobility for dressing and reaching LTG Duration 12 weeks 1 Impairment quickdash Impairment 46 or 79.5% impaired Short Term Goal (STG) Pt will report <60% impairment in L shoulder use per Quickdash to demonstrate improved QOL STG Duration 8 weeks Fdc Goal (LTG) Pt will report <60% impairment in L shoulder use per Quickdash to demonstrate improved QOL and activity tolerance LTG Duration 12 weeks Assessment Summary Assessment Pt is a 84 y.o. male presenting s/p L rTSA on . He is currently using an abduction sling and his next follow up is on 05/10/24. Pt currently has impairments in L shoulder mobility, strength, pain, ADLs/activity tolerance, and sleep. Pt's L shoulder PROM in forward flexion is 40 deg. Left shoulder strength not tested due to precautions. Pt's R shoulder AROM and strength against resistance are both limited as a comparison. His partner is assisting him with his ADLs. PT educated pt on surgical precautions to prevent dislocation, correct donning/ doffing of sling, and positioning for sleeping/ sitting with pillow. PT also educated pt on exam findings and plan of care, issuing initial HEP for wrist AROM and exhaust and muffler repairer strength. Pt would benefit from skilled PT for L shoulder mobility and strength per protocol in order to improve activity tolerance and return to PLOF. Physical Therapy Plan Frequency and Duration Frequency of Treatment 1-2x/wk Duration of treatment (weeks) 12 Plan of Care Start Date 04/29/24 Plan of Care End Date 07/26/24 Therapeutic Interventions Therapeutic Interventions Gait Training,Home Exercise Program,Joint Mobilizations, Manual Therapy,Neuromuscular Re-education,Orthotic/ Prosthetic Management,Patient/ Caregiver Education,Self-Care/ Home Management,Sensory Integration,Soft Tissue Mobilization,Taping, Therapeutic Activities, Therapeutic Exercises Modalities Cold Pack/Ice Massage,Electric Stimulation,Hot Packs, Ultrasound Next Visit Focus/Plan Next Note Type Treatment Note Next Visit Plan PROM, wrist/cervical spine/ elbow AROM, exhaust and muffler repairer strength, pendulums PROM only (max 90 deg by 6 weeks per protocol)- 90 deg FF and ER to neutral per protocol No AAROM, AROM until 6 weeks per protocol If good tolerance for PROM then 1x/wk until 6 weeks
--- NOTE | 2024-04-29 15:54 | PT.OPPOC ---
Physical, Occupational & Speech Therapy At [facility] Current Diagnoses Primary osteoarthritis, left shoulder (04/29/24) Stiffness of left shoulder, not elsewhere classified (04/29/24) Weakness (04/29/24) Visit Care Team Role Provider Type Obi Horton MD Family Provider Physician Primary Care Provider Specialty: Internal Medicine Address: [address] [place] [address], [phone] Email: [email or web address] Tomas Yuan MD Attending Provider Physician Referring Provider Specialty: Orthopedics Orthopedic Surgery Address: [address] [place] [address], [id number] Email: [email or web address] Plan Of Care PT-OP-T Assessment and Plan Start: 04/29/24 09:02 Freq: Status: Active Protocol: Document 04/29/24 09:03 NM (Rec: 04/29/24 16:42 NM [id number]) Physical Therapy Assessment Rehab Potential Rehabilitation Potential Fair Evaluation Complexity Number of Personal Factors/Comorbidities 1-2 Number of Body Systems Impaired 1-2 Impairments Impairments Balance,Edema,Functional Activities,Functional Mobility ,Gait,Integument,Pain,Posture, ROM,Sensation,Soft Tissue Mobility,Strength Other Concerns Barriers to Rehabilitation Pt has limitations in R shoulder AROM/strength as well , including hx of arthritis. Goals 6 Impairment ADLs Impairment unable to perform ADLs Stonemason Apprentice Goal (LTG) Pt will report that he is able to perform all dressing and grooming per PLOF without limitation due to L shoulder or without increase in baseline pain LTG Duration 12 weeks 5 Impairment HEP Impairment not performing HEP Short Term Goal (STG) Pt will report compliance with HEP at least 3x/wk in order to maximize progression with PT STG Duration 6 weeks Stonemason Apprentice Goal (LTG) Pt will report compliance with HEP at least 3x/wk in order to demonstrate smooth transition into maintenance program LTG Duration 12 weeks 4 Impairment strength Impairment L shoulder MMT not tested due to precautions Short Term Goal (STG) Pt will improve L shoulder global strength to at least 4- /5 in order to demonstrate improved strength for ADLs/ activities STG Duration 9 weeks Stonemason Apprentice Goal (LTG) Pt will improve L shoulder global strength to at least 4/ 5 in order to demonstrate improved strength for ADLs/ activities LTG Duration 12 weeks 3 Impairment ROM Impairment L shoulder ER Short Term Goal (STG) Pt will improve L shoulder ER AROM in scaption plane to at least 20 deg in order to demonstrate improved shoulder mobility for dressing and reaching STG Duration 9 weeks Senior Living Goal (LTG) Pt will improve L shoulder ER AROM in scaption plane to at least 30 deg in order to demonstrate improved shoulder mobility for dressing and reaching LTG Duration 12 weeks 2 Impairment ROM Impairment L shoulder flexion Short Term Goal (STG) Pt will improve L shoulder flexion AROM in scaption plane to at least 90 deg in order to demonstrate improved shoulder mobility for dressing and reaching STG Duration 9 weeks Stonemason Apprentice Goal (LTG) Pt will improve L shoulder flexion AROM in scaption plane to at least 105 deg in order to demonstrate improved shoulder mobility for dressing and reaching LTG Duration 12 weeks 1 Impairment quickdash Impairment 46 or 79.5% impaired Short Term Goal (STG) Pt will report <60% impairment in L shoulder use per Quickdash to demonstrate improved QOL STG Duration 8 weeks Senior Living Goal (LTG) Pt will report <60% impairment in L shoulder use per Quickdash to demonstrate improved QOL and activity tolerance LTG Duration 12 weeks Assessment Summary Assessment Pt is a 84 y.o. male presenting s/p L rTSA on . He is currently using an abduction sling and his next follow up is on 05/10/24. Pt currently has impairments in L shoulder mobility, strength, pain, ADLs/activity tolerance, and sleep. Pt's L shoulder PROM in forward flexion is 40 deg. Left shoulder strength not tested due to precautions. Pt's R shoulder AROM and strength against resistance are both limited as a comparison. His partner is assisting him with his ADLs. PT educated pt on surgical precautions to prevent dislocation, correct donning/ doffing of sling, and positioning for sleeping/ sitting with pillow. PT also educated pt on exam findings and plan of care, issuing initial HEP for wrist AROM and fusing furnace loader strength. Pt would benefit from skilled PT for L shoulder mobility and strength per protocol in order to improve activity tolerance and return to PLOF. Physical Therapy Plan Frequency and Duration Frequency of Treatment 1-2x/wk Duration of treatment (weeks) 12 Plan of Care Start Date 04/29/24 Plan of Care End Date 07/26/24 Therapeutic Interventions Therapeutic Interventions Gait Training,Home Exercise Program,Joint Mobilizations, Manual Therapy,Neuromuscular Re-education,Orthotic/ Prosthetic Management,Patient/ Caregiver Education,Self-Care/ Home Management,Sensory Integration,Soft Tissue Mobilization,Taping, Therapeutic Activities, Therapeutic Exercises Modalities Cold Pack/Ice Massage,Electric Stimulation,Hot Packs, Ultrasound Next Visit Focus/Plan Next Note Type Treatment Note Next Visit Plan PROM, wrist/cervical spine/ elbow AROM, fusing furnace loader strength, pendulums PROM only (max 90 deg by 6 weeks per protocol)- 90 deg FF and ER to neutral per protocol No AAROM, AROM until 6 weeks per protocol If good tolerance for PROM then 1x/wk until 6 weeks Plan of Care Dates Plan of Care Start Date 04/29/24 Plan of Care End Date 07/26/24 Electronically Signed by: Matilde Jay, PT 05/02/24 1253 If you are in agreement with this Plan of Care, please return a signed and dated copy. I have reviewed this Plan of Care and certify that the skilled therapy services above are required to meet the patient?s needs. Physician Signature Date Printed Name and Credentials Clinical Instructor Signature Printed Name and Credentials
--- NOTE | 2024-05-06 10:04 | PT.OTN ---
Current Diagnoses Primary osteoarthritis, left shoulder (05/06/24) Stiffness of left shoulder, not elsewhere classified (05/06/24) Weakness (05/06/24) Physical Therapy Treatment Note PT-OP-A Visit Information Start: 04/29/24 09:02 Freq: Status: Active Protocol: Document 05/06/24 08:43 AB (Rec: 05/06/24 10:04 AB [id number]) Out-Patient Physical Therapy Visit Information Visit Information Visit Type Treatment Note Visit Note 15 visits [email or web address] Access Code: [email or web address] DOS 04/25/24 Visit Start Time 09:06 Visit Stop Time 09:52 Visit Number 2 Number of MOTOR POWER CONNECTOR Visits 1 Evaluation Information Evaluation Date 04/29/24 Precautions Precautions 4 weeks: 05/23, 6 weeks: 06/06, 8 weeks: 06/20, 10 weeks: 07/04, 12 weeks: 07/18 Reverse TSA precautions (DOS 04/25/24): no IR/Ext, no Ext past neutral Sling for 6 weeks, PROM goal up to 90 deg at 6 weeks and ER to neutral per protocol, No AROM until 6 weeks PT-OP-B Current Condition Start: 04/29/24 09:02 Freq: Status: Active Protocol: Document 04/29/24 09:03 NM (Rec: 04/29/24 09:55 NM [id number]) Current Condition History of Current Condition Onset Date DOS 04/25/24 Current Complaints pain, sleeping, mobility, strength History of Current Condition Pt presents with L rTSA on . He had no complications . He presents with his partner , who helped provide hx. Pt has large red bruise on the L biceps muscle belly, unsure if due to surgery or when sleeping. Pt has been wearing the sling, which his partner has been helping assist. Prior to surgery, he was doing exercises from previous PT, but he got tremendous pain in L shoulder- got referral due to rotator cuff tear. Pt reports pain has been well managed, has not been on any pain meds but using cryotherapy 4-5x/day. He has most discomfort with shoulder in sleeping (bed and recliner) . Pt also has nocturia, so has been sleeping in recliner. Partner has moved coffee table , has night lights, removed obstacles. Next follow up with Dr. Yuan: 7/5 (take off dressing and momo). Has midline neck pain as well, hard to look up. Treatment Goals Patient/Caregiver Goals return to normal 2 handed life Prior Functional Status Baseline Function- ADL's Independent Baseline Function- Mobility Independent Current Functional Impairments (Reported) Functional Limitations- ADL's dressing, grooming Functional Limitations- Mobility/Gait reaching, lifting PT-OP-C Subjective Start: 04/29/24 09:02 Freq: Status: Active Protocol: Document 05/06/24 08:43 AB (Rec: 05/06/24 10:04 AB [id number]) OP-PT Subjective Patient Comments Patient Comments Patient reports he is not sleeping, no recliner is comfortable and has 3. Partner reports the UE is allowed to hang when patient is dressing. 81 deg flexion ER to 0 deg PROM right shoulder start of sesssion. PT-OP-E Functional Tests Start: 04/29/24 09:02 Freq: Status: Active Protocol: Document 04/29/24 09:03 NM (Rec: 04/29/24 09:55 NM [id number]) Functional Tests Apley's Scratch Test Action 1- Left N/A Action 1- Right opposite shoulder Action 2- Left N/A Action 2- Right T3 Action 3- Left N/A Action 3- Right T9 PT-OP-F Manual Assessment Start: 04/29/24 09:02 Freq: Status: Active Protocol: Document 04/29/24 09:03 NM (Rec: 04/29/24 16:42 NM [id number]) Manual Assessments Soft Tissue Assessment Soft Tissue Mobility Assessment Increased pectoralis muscle tightness, forward head and shoulders Joint Mobility Assessment Joint Mobility Assessment Right shoulder mobility limited in all planes on contralateral side to surgery PT-OP-J Posture/Palpation/Skin Start: 04/29/24 09:02 Freq: Status: Active Protocol: Document 04/29/24 09:03 NM (Rec: 04/29/24 16:42 NM [id number]) Posture Evaluation Position Standing Head/C-Spine Posture Forward Head T-Spine Posture Increased Kyphosis Shoulder Posture (L) Rounded,(R) Rounded,(L) Forward,(R) Forward Comments Posture Comments L arm positioned in abduction sling. Demonstrates increased foward flexed posture at trunk , neck, and shoulders Palpation Assessment Location L shoulder Palpation Details Tenderness reported along incision, anterior shoulder, AC joint Skin Assessment Incisional Assessment Incision Appearance/Comments Did not remove bandage; dressings clean/dry/intact with no signs of redness or infection Other Assessments Skin Assessment Comments Pt has large red/purple bruise along L biceps and anterior shoulder below surgical site PT-OP-K Range of Motion Start: 04/29/24 09:02 Freq: Status: Active Protocol: Document 04/29/24 09:03 NM (Rec: 04/29/24 09:55 NM [id number]) Shoulder Goniometric Range of Motion Shoulder L PROM Flexion 40 Comments 40 deg passively with forward flexion in pendulum; did not assess others due to surgical precautions R shoulder Flexion 100 Abduction 80 External Rotation at 0 degrees Abduction 40 Internal Rotation Behind Back (text) T9 Comments scaption: 110 deg; demos trunk extension compensation; T3 ER apley PT-OP-M Strength Start: 04/29/24 09:02 Freq: Status: Active Protocol: Document 04/29/24 09:03 NM (Rec: 04/29/24 09:55 NM [id number]) Shoulder Strength Shoulder Manual Muscle Testing Left Comments Did not assess due to surgical precautions Right Flexion 3+ Fair+ Extension 3+ Fair+ Abduction (C5) 3+ Fair+ Adduction 3+ Fair+ External Rotation 3+ Fair+ Internal Rotation 3+ Fair+ PT-OP-Q Treatments Start: 04/29/24 09:02 Freq: Status: Active Protocol: Document 05/06/24 08:43 AB (Rec: 05/06/24 10:04 AB [id number]) Therapeutic Exercises Sitting Exercises towel squeezes Side left Reps/Minutes 10x5 hold Comments monitored for pain wrist AROM Sitting Exercise Name flex/ext Side left Equipment Used arm positioned in neutral on a pillow Reps/Minutes 12 X flex 12 X 2 extension Comments pain free Standing Exercises pendulum Standing Exercise Name fwd HEP, horizontal HEP, circular ( not added to HEP) Side left Reps/Minutes 1-2 min each post verbal and visual cues Comments increased verbal, visual and tactile cues for circular Manual Therapy Treatment Soft Tissue Mobilization left forearm Body Location left forearm avoiding bruises Mobilization Type Other Intensity/Depth Superficial Body Position Hooklying Comments upward strokes for swelling Manual Techniques PROM left UE Type flexion with pillow under UE Body Position Hooklying Reps/Duration 15 min Self-Care/Home Management Treatment Education Other Education Review of precautions, UE must always be in sight, to position on pillow ie avoiding UE behind trunk when using ice, no weight bearing no weight in UE. PT-OP-T Assessment and Plan Start: 04/29/24 09:02 Freq: Status: Active Protocol: Document 05/06/24 08:43 AB (Rec: 05/06/24 10:04 AB [id number]) Physical Therapy Assessment Goals 6 Impairment ADLs Impairment unable to perform ADLs Wedding Planner Goal (LTG) Pt will report that he is able to perform all dressing and grooming per PLOF without limitation due to L shoulder or without increase in baseline pain LTG Duration 12 weeks 5 Impairment HEP Impairment not performing HEP Short Term Goal (STG) Pt will report compliance with HEP at least 3x/wk in order to maximize progression with PT STG Duration 6 weeks Senior Care Goal (LTG) Pt will report compliance with HEP at least 3x/wk in order to demonstrate smooth transition into maintenance program LTG Duration 12 weeks 4 Impairment strength Impairment L shoulder MMT not tested due to precautions Short Term Goal (STG) Pt will improve L shoulder global strength to at least 4- /5 in order to demonstrate improved strength for ADLs/ activities STG Duration 9 weeks Senior Care Goal (LTG) Pt will improve L shoulder global strength to at least 4/ 5 in order to demonstrate improved strength for ADLs/ activities LTG Duration 12 weeks 3 Impairment ROM Impairment L shoulder ER Short Term Goal (STG) Pt will improve L shoulder ER AROM in scaption plane to at least 20 deg in order to demonstrate improved shoulder mobility for dressing and reaching STG Duration 9 weeks Wedding Planner Goal (LTG) Pt will improve L shoulder ER AROM in scaption plane to at least 30 deg in order to demonstrate improved shoulder mobility for dressing and reaching LTG Duration 12 weeks 2 Impairment ROM Impairment L shoulder flexion Short Term Goal (STG) Pt will improve L shoulder flexion AROM in scaption plane to at least 90 deg in order to demonstrate improved shoulder mobility for dressing and reaching STG Duration 9 weeks Senior Care Goal (LTG) Pt will improve L shoulder flexion AROM in scaption plane to at least 105 deg in order to demonstrate improved shoulder mobility for dressing and reaching LTG Duration 12 weeks 1 Impairment quickdash Impairment 46 or 79.5% impaired Short Term Goal (STG) Pt will report <60% impairment in L shoulder use per Quickdash to demonstrate improved QOL STG Duration 8 weeks Wedding Planner Goal (LTG) Pt will report <60% impairment in L shoulder use per Quickdash to demonstrate improved QOL and activity tolerance LTG Duration 12 weeks Assessment Summary Assessment Pt is a 84 y.o. male presenting s/p L rTSA on . Patient is one week 4 days post op. PROM left shoulder flexion to 90 deg with manual therapy, ER to neutral start of session left shoulder PROM. Good return demonstration for fwd and horizontal pendulum, increased difficulty with circular movement which was therefore not added to HEP . Patient rates left shoulder pain 0/10 end of session. Patient advised to decrease to 1X a week until Jun 06, 2024. Physical Therapy Plan Frequency and Duration Frequency of Treatment 1-2x/wk Duration of treatment (weeks) 12 Plan of Care Start Date 04/29/24 Plan of Care End Date 07/26/24 Next Visit Focus/Plan Next Note Type Treatment Note Next Visit Plan PROM, wrist/cervical spine/ elbow AROM, [employer] strength, pendulums PROM only (max 90 deg by 6 weeks per protocol)- 90 deg FF and ER to neutral per protocol No AAROM, AROM until 6 weeks per protocol If good tolerance for PROM then 1x/wk until 6 weeks
--- NOTE | 2024-05-13 12:56 | PT.OTN ---
Current Diagnoses Primary osteoarthritis, left shoulder (05/13/24) Stiffness of left shoulder, not elsewhere classified (05/13/24) Weakness (05/13/24) Physical Therapy Treatment Note PT-OP-A Visit Information Start: 04/29/24 09:02 Freq: Status: Active Protocol: Document 05/13/24 09:03 NM (Rec: 05/13/24 09:49 NM [id number]) Out-Patient Physical Therapy Visit Information Visit Information Visit Type Treatment Note Visit Note 15 visits, DOS 04/25/24 Visit Start Time 09:05 Visit Stop Time 09:45 Visit Number 3 Evaluation Information Evaluation Date 04/29/24 Precautions Precautions 4 weeks: 05/23, 6 weeks: 06/06, 8 weeks: 06/20, 10 weeks: 07/04, 12 weeks: 07/18 Reverse TSA precautions (DOS 04/25/24): no IR/Ext, no Ext past neutral Sling for 6 weeks, PROM goal up to 90 deg at 6 weeks and ER to neutral per protocol, No AROM until 6 weeks PT-OP-B Current Condition Start: 04/29/24 09:02 Freq: Status: Active Protocol: Document 04/29/24 09:03 NM (Rec: 04/29/24 09:55 NM [id number]) Current Condition History of Current Condition Onset Date DOS 04/25/24 Current Complaints pain, sleeping, mobility, strength History of Current Condition Pt presents with L rTSA on . He had no complications . He presents with his partner , who helped provide hx. Pt has large red bruise on the L biceps muscle belly, unsure if due to surgery or when sleeping. Pt has been wearing the sling, which his partner has been helping assist. Prior to surgery, he was doing exercises from previous PT, but he got tremendous pain in L shoulder- got referral due to rotator cuff tear. Pt reports pain has been well managed, has not been on any pain meds but using cryotherapy 4-5x/day. He has most discomfort with shoulder in sleeping (bed and recliner) . Pt also has nocturia, so has been sleeping in recliner. Partner has moved coffee table , has night lights, removed obstacles. Next follow up with Dr. Yuan: 05/10 (take off dressing and momo). Has midline neck pain as well, hard to look up. Treatment Goals Patient/Caregiver Goals return to normal 2 handed life Prior Functional Status Baseline Function- ADL's Independent Baseline Function- Mobility Independent Current Functional Impairments (Reported) Functional Limitations- ADL's dressing, grooming Functional Limitations- Mobility/Gait reaching, lifting PT-OP-C Subjective Start: 04/29/24 09:02 Freq: Status: Active Protocol: Document 05/13/24 09:03 NM (Rec: 05/13/24 09:49 NM [id number]) OP-PT Subjective Patient Comments Patient Comments Pt reports most diffoculty with sleeping still, uses 1 recliner. He has been sleeping on the couch with the back against the back rest. He has been soreness and pain in his L shoulder. He has been icing, ibuprofen. He went to the [facility] last week, disappointed with session frequency, reports x rays ok. Currently 04/15 in L shoulder. Still in sling. Reports HEP ok PT-OP-E Functional Tests Start: 04/29/24 09:02 Freq: Status: Active Protocol: Document 04/29/24 09:03 NM (Rec: 04/29/24 09:55 NM [id number]) Functional Tests Apley's Scratch Test Action 1- Left N/A Action 1- Right opposite shoulder Action 2- Left N/A Action 2- Right T3 Action 3- Left N/A Action 3- Right T9 PT-OP-F Manual Assessment Start: 04/29/24 09:02 Freq: Status: Active Protocol: Document 04/29/24 09:03 NM (Rec: 04/29/24 16:42 NM [id number]) Manual Assessments Soft Tissue Assessment Soft Tissue Mobility Assessment Increased pectoralis muscle tightness, forward head and shoulders Joint Mobility Assessment Joint Mobility Assessment Right shoulder mobility limited in all planes on contralateral side to surgery PT-OP-J Posture/Palpation/Skin Start: 04/29/24 09:02 Freq: Status: Active Protocol: Document 04/29/24 09:03 NM (Rec: 04/29/24 16:42 NM [id number]) Posture Evaluation Position Standing Head/C-Spine Posture Forward Head T-Spine Posture Increased Kyphosis Shoulder Posture (L) Rounded,(R) Rounded,(L) Forward,(R) Forward Comments Posture Comments L arm positioned in abduction sling. Demonstrates increased foward flexed posture at trunk , neck, and shoulders Palpation Assessment Location L shoulder Palpation Details Tenderness reported along incision, anterior shoulder, AC joint Skin Assessment Incisional Assessment Incision Appearance/Comments Did not remove bandage; dressings clean/dry/intact with no signs of redness or infection Other Assessments Skin Assessment Comments Pt has large red/purple bruise along L biceps and anterior shoulder below surgical site PT-OP-K Range of Motion Start: 04/29/24 09:02 Freq: Status: Active Protocol: Document 04/29/24 09:03 NM (Rec: 04/29/24 09:55 NM [id number]) Shoulder Goniometric Range of Motion Shoulder L PROM Flexion 40 Comments 40 deg passively with forward flexion in pendulum; did not assess others due to surgical precautions R shoulder Flexion 100 Abduction 80 External Rotation at 0 degrees Abduction 40 Internal Rotation Behind Back (text) T9 Comments scaption: 110 deg; demos trunk extension compensation; T3 ER apley PT-OP-M Strength Start: 04/29/24 09:02 Freq: Status: Active Protocol: Document 04/29/24 09:03 NM (Rec: 04/29/24 09:55 NM [id number]) Shoulder Strength Shoulder Manual Muscle Testing Left Comments Did not assess due to surgical precautions Right Flexion 3+ Fair+ Extension 3+ Fair+ Abduction (C5) 3+ Fair+ Adduction 3+ Fair+ External Rotation 3+ Fair+ Internal Rotation 3+ Fair+ PT-OP-Q Treatments Start: 04/29/24 09:02 Freq: Status: Active Protocol: Document 05/13/24 09:03 NM (Rec: 05/13/24 09:49 NM [id number]) Therapeutic Exercises Sitting Exercises elbow AROM Sitting Exercise Name flex/ext Side left Resistance AROM Reps/Minutes 2x10 ea Comments performed in sitting and standing; pain free; shoulder in front of body towel squeezes Side left Equipment Used systems consultant ball Reps/Minutes 15x5 Comments monitored for pain, submaximal wrist AROM Sitting Exercise Name flex/ext, supination/pronation Side left Equipment Used arm positioned in neutral on pillow Reps/Minutes 2x10 ea Comments performed in supine between sets of PROM for manual tx; pain free Standing Exercises pendulum Standing Exercise Name fwd HEP, horizontal HEP, circular ( review again, did not add to HEP) Side left Reps/Minutes 1-2 min ea direction Comments start of session; cued to use body more than arm Manual Therapy Treatment Consent Patient gave verbal consent for manual Yes treatment Soft Tissue Mobilization L arm Body Location forearm, biceps muscle belly, pec at axilla, UT, scalenes Mobilization Type Rolling,Other Intensity/Depth Superficial Body Position Hooklying Comments Gentle upward strokes for swelling management (less than at evaluation, bruising gone at biceps). Gentle superficial rolling distal > proximal from forearm to bicep muscle belly, avoided healing incision. Gentle superficial rolling at L UT and scalene, in addition to pec at axilla for muscle relaxation and pain reduction. Good tolerance to soft tissue mobilization Manual Techniques PROM left UE Type flexion in scaption plane Body Position Hooklying Reps/Duration 15 min Comments Up to 100 deg FF with elbow flexed, then 105 deg with elbow extended Positioned with pillow under arm. Monitored for pain Self-Care/Home Management Treatment Education Patient Education Home Exercise Program,Pain Management Other Education HEP: elbow flex/ext AROM, progressed submaximal systems consultant to 5 with towel Educated not to perform HEP prior to PT PT-OP-T Assessment and Plan Start: 04/29/24 09:02 Freq: Status: Active Protocol: Document 05/13/24 09:03 NM (Rec: 05/13/24 09:49 NM [id number]) Physical Therapy Assessment Goals 6 Impairment ADLs Impairment unable to perform ADLs Armored Truck Driver Goal (LTG) Pt will report that he is able to perform all dressing and grooming per PLOF without limitation due to L shoulder or without increase in baseline pain LTG Duration 12 weeks 5 Impairment HEP Impairment not performing HEP Short Term Goal (STG) Pt will report compliance with HEP at least 3x/wk in order to maximize progression with PT STG Duration 6 weeks Care Home Goal (LTG) Pt will report compliance with HEP at least 3x/wk in order to demonstrate smooth transition into maintenance program LTG Duration 12 weeks 4 Impairment strength Impairment L shoulder MMT not tested due to precautions Short Term Goal (STG) Pt will improve L shoulder global strength to at least 4- /5 in order to demonstrate improved strength for ADLs/ activities STG Duration 9 weeks Care Home Goal (LTG) Pt will improve L shoulder global strength to at least 4/ 5 in order to demonstrate improved strength for ADLs/ activities LTG Duration 12 weeks 3 Impairment ROM Impairment L shoulder ER Short Term Goal (STG) Pt will improve L shoulder ER AROM in scaption plane to at least 20 deg in order to demonstrate improved shoulder mobility for dressing and reaching STG Duration 9 weeks Care Home Goal (LTG) Pt will improve L shoulder ER AROM in scaption plane to at least 30 deg in order to demonstrate improved shoulder mobility for dressing and reaching LTG Duration 12 weeks 2 Impairment ROM Impairment L shoulder flexion Short Term Goal (STG) Pt will improve L shoulder flexion AROM in scaption plane to at least 90 deg in order to demonstrate improved shoulder mobility for dressing and reaching STG Duration 9 weeks Armored Truck Driver Goal (LTG) Pt will improve L shoulder flexion AROM in scaption plane to at least 105 deg in order to demonstrate improved shoulder mobility for dressing and reaching LTG Duration 12 weeks 1 Impairment quickdash Impairment 46 or 79.5% impaired Short Term Goal (STG) Pt will report <60% impairment in L shoulder use per Quickdash to demonstrate improved QOL STG Duration 8 weeks Care Home Goal (LTG) Pt will report <60% impairment in L shoulder use per Quickdash to demonstrate improved QOL and activity tolerance LTG Duration 12 weeks Assessment Summary Assessment Pt tolerated session well. Currently 2 weeks and 4 days post op. Pt's L arm is more achy than in previous sessions , but pt also performed HEP prior to PT, which PT educated against. Pt tolerates PROM up to 105 deg foward flexion in scaption plane. Due to healing of L bicep bruising, initiated superficial soft tissue mobilization of L forearms and biceps, avoiding healing incision. Educated pt and his partner to avoid incision for now regarding scar mobilization as still healing. Initiated wrist pronation/supination AROM and elbow flex/extension AROM, which pt able to tolerate well . Continued with pendulum with extensive education to remain passive ROM using body vs trying to assist L arm; verbal and visual cues required to maintain correct execution. Pt would benefit from skilled PT for L UE per protocol in order to reduce stiffness and improve ROM for future protocol progression to return to PLOF. Physical Therapy Plan Frequency and Duration Frequency of Treatment 1-2x/wk Duration of treatment (weeks) 12 Plan of Care Start Date 04/29/24 Plan of Care End Date 07/26/24 Therapeutic Interventions Therapeutic Interventions Gait Training,Home Exercise Program,Joint Mobilizations, Manual Therapy,Neuromuscular Re-education,Orthotic/ Prosthetic Management,Patient/ Caregiver Education,Self-Care/ Home Management,Sensory Integration,Soft Tissue Mobilization,Taping, Therapeutic Activities, Therapeutic Exercises Modalities Cold Pack/Ice Massage,Electric Stimulation,Hot Packs, Ultrasound Next Visit Focus/Plan Next Note Type Treatment Note Next Visit Plan PROM, wrist/cervical spine/ elbow AROM, systems consultant strength, pendulums Review pendulums to ensure passive, along with AROM wrist flex/ext PROM only (max 90 deg by 6 weeks per protocol)- 90 deg FF and ER to neutral per protocol No AAROM, AROM until 6 weeks per protocol If good tolerance for PROM then 1x/wk until 6 weeks
--- NOTE | 2024-05-16 12:13 | PT.OTN ---
Current Diagnoses Primary osteoarthritis, left shoulder (05/16/24) Stiffness of left shoulder, not elsewhere classified (05/16/24) Weakness (05/16/24) Physical Therapy Treatment Note PT-OP-A Visit Information Start: 04/29/24 09:02 Freq: Status: Active Protocol: Document 05/16/24 09:28 AB (Rec: 05/16/24 12:11 AB [id number]) Out-Patient Physical Therapy Visit Information Visit Information Visit Type Treatment Note Visit Note 15 visits, DOS 04/25/24 Visit Start Time 11:18 Visit Stop Time 12:00 Visit Number 4 Number of CLEAN ROOM TECHNICIAN Visits 1 Evaluation Information Evaluation Date 04/29/24 Precautions Precautions 4 weeks: 05/23, 6 weeks: 06/06, 8 weeks: 06/20, 10 weeks: 07/04, 12 weeks: 07/18 Reverse TSA precautions (DOS 04/25/24): no IR/Ext, no Ext past neutral Sling for 6 weeks, PROM goal up to 90 deg at 6 weeks and ER to neutral per protocol, No AROM until 6 weeks PT-OP-B Current Condition Start: 04/29/24 09:02 Freq: Status: Active Protocol: Document 04/29/24 09:03 NM (Rec: 04/29/24 09:55 NM [id number]) Current Condition History of Current Condition Onset Date DOS 04/25/24 Current Complaints pain, sleeping, mobility, strength History of Current Condition Pt presents with L rTSA on . He had no complications . He presents with his partner , who helped provide hx. Pt has large red bruise on the L biceps muscle belly, unsure if due to surgery or when sleeping. Pt has been wearing the sling, which his partner has been helping assist. Prior to surgery, he was doing exercises from previous PT, but he got tremendous pain in L shoulder- got referral due to rotator cuff tear. Pt reports pain has been well managed, has not been on any pain meds but using cryotherapy 4-5x/day. He has most discomfort with shoulder in sleeping (bed and recliner) . Pt also has nocturia, so has been sleeping in recliner. Partner has moved coffee table , has night lights, removed obstacles. Next follow up with Dr. Yuan: 05/10 (take off dressing and momo). Has midline neck pain as well, hard to look up. Treatment Goals Patient/Caregiver Goals return to normal 2 handed life Prior Functional Status Baseline Function- ADL's Independent Baseline Function- Mobility Independent Current Functional Impairments (Reported) Functional Limitations- ADL's dressing, grooming Functional Limitations- Mobility/Gait reaching, lifting PT-OP-C Subjective Start: 04/29/24 09:02 Freq: Status: Active Protocol: Document 05/16/24 09:28 AB (Rec: 05/16/24 12:11 AB [id number]) OP-PT Subjective Patient Comments Patient Comments Patient reports he catches himself pulling the arm back, and notices having pain and that stops him. PROM left shoulder flexion/scaption to 79 deg, ER to neutral start of session. Observed healing incision, no redness, healing well scabs present under dressing. PT-OP-E Functional Tests Start: 04/29/24 09:02 Freq: Status: Active Protocol: Document 04/29/24 09:03 NM (Rec: 04/29/24 09:55 NM [id number]) Functional Tests Apley's Scratch Test Action 1- Left N/A Action 1- Right opposite shoulder Action 2- Left N/A Action 2- Right T3 Action 3- Left N/A Action 3- Right T9 PT-OP-F Manual Assessment Start: 04/29/24 09:02 Freq: Status: Active Protocol: Document 04/29/24 09:03 NM (Rec: 04/29/24 16:42 NM [id number]) Manual Assessments Soft Tissue Assessment Soft Tissue Mobility Assessment Increased pectoralis muscle tightness, forward head and shoulders Joint Mobility Assessment Joint Mobility Assessment Right shoulder mobility limited in all planes on contralateral side to surgery PT-OP-J Posture/Palpation/Skin Start: 04/29/24 09:02 Freq: Status: Active Protocol: Document 04/29/24 09:03 NM (Rec: 04/29/24 16:42 NM [id number]) Posture Evaluation Position Standing Head/C-Spine Posture Forward Head T-Spine Posture Increased Kyphosis Shoulder Posture (L) Rounded,(R) Rounded,(L) Forward,(R) Forward Comments Posture Comments L arm positioned in abduction sling. Demonstrates increased foward flexed posture at trunk , neck, and shoulders Palpation Assessment Location L shoulder Palpation Details Tenderness reported along incision, anterior shoulder, AC joint Skin Assessment Incisional Assessment Incision Appearance/Comments Did not remove bandage; dressings clean/dry/intact with no signs of redness or infection Other Assessments Skin Assessment Comments Pt has large red/purple bruise along L biceps and anterior shoulder below surgical site PT-OP-K Range of Motion Start: 04/29/24 09:02 Freq: Status: Active Protocol: Document 04/29/24 09:03 NM (Rec: 04/29/24 09:55 NM [id number]) Shoulder Goniometric Range of Motion Shoulder L PROM Flexion 40 Comments 40 deg passively with forward flexion in pendulum; did not assess others due to surgical precautions R shoulder Flexion 100 Abduction 80 External Rotation at 0 degrees Abduction 40 Internal Rotation Behind Back (text) T9 Comments scaption: 110 deg; demos trunk extension compensation; T3 ER apley PT-OP-M Strength Start: 04/29/24 09:02 Freq: Status: Active Protocol: Document 04/29/24 09:03 NM (Rec: 04/29/24 09:55 NM [id number]) Shoulder Strength Shoulder Manual Muscle Testing Left Comments Did not assess due to surgical precautions Right Flexion 3+ Fair+ Extension 3+ Fair+ Abduction (C5) 3+ Fair+ Adduction 3+ Fair+ External Rotation 3+ Fair+ Internal Rotation 3+ Fair+ PT-OP-Q Treatments Start: 04/29/24 09:02 Freq: Status: Active Protocol: Document 05/16/24 09:28 AB (Rec: 05/16/24 12:11 AB [id number]) Therapeutic Exercises Sitting Exercises elbow AROM Sitting Exercise Name flex/ext Side left Resistance AROM Reps/Minutes 2x10 ea Comments performed in sitting and standing; pain free; shoulder in front of body towel squeezes Side left Equipment Used towel Reps/Minutes one minute Comments Pt reports no increased pain wrist AROM Sitting Exercise Name flex/ext, supination/pronation Side left Reps/Minutes X15 each Comments pain free per patient Standing Exercises UT stretch Side bilateral Reps/Minutes 30 seconds each side X 2 Comments verbal and tactile cues, tends to side bend at trunk pendulum Standing Exercise Name fwd HEP, horizontal HEP, circular ( review again, did not add to HEP) Side left Reps/Minutes 1-2 min ea direction Comments noted improved use of momentum with right LE fwd during pendum fwd movement Manual Therapy Treatment Soft Tissue Mobilization L arm Body Location forearm, biceps muscle belly, pec at axilla, UT, scalenes Mobilization Type Rolling,Other Intensity/Depth Superficial Body Position Hooklying Comments Gentle upward strokes for swelling management (less than at evaluation, bruising gone at biceps). Gentle superficial rolling distal > proximal from forearm to bicep muscle belly, avoided healing incision. Gentle superficial rolling at L UT and scalene, in addition to pec at axilla for muscle relaxation and pain reduction. Good tolerance to soft tissue mobilization left forearm Body Location left forearm Mobilization Type Other Intensity/Depth Superficial Body Position Hooklying Comments upward strokes for swelling PT-OP-T Assessment and Plan Start: 04/29/24 09:02 Freq: Status: Active Protocol: Document 05/16/24 09:28 AB (Rec: 05/16/24 12:11 AB [id number]) Physical Therapy Assessment Goals 6 Impairment ADLs Impairment unable to perform ADLs Assisted Goal (LTG) Pt will report that he is able to perform all dressing and grooming per PLOF without limitation due to L shoulder or without increase in baseline pain LTG Duration 12 weeks 5 Impairment HEP Impairment not performing HEP Short Term Goal (STG) Pt will report compliance with HEP at least 3x/wk in order to maximize progression with PT STG Duration 6 weeks Decaler Goal (LTG) Pt will report compliance with HEP at least 3x/wk in order to demonstrate smooth transition into maintenance program LTG Duration 12 weeks 4 Impairment strength Impairment L shoulder MMT not tested due to precautions Short Term Goal (STG) Pt will improve L shoulder global strength to at least 4- /5 in order to demonstrate improved strength for ADLs/ activities STG Duration 9 weeks Assisted Goal (LTG) Pt will improve L shoulder global strength to at least 4/ 5 in order to demonstrate improved strength for ADLs/ activities LTG Duration 12 weeks 3 Impairment ROM Impairment L shoulder ER Short Term Goal (STG) Pt will improve L shoulder ER AROM in scaption plane to at least 20 deg in order to demonstrate improved shoulder mobility for dressing and reaching STG Duration 9 weeks Assisted Goal (LTG) Pt will improve L shoulder ER AROM in scaption plane to at least 30 deg in order to demonstrate improved shoulder mobility for dressing and reaching LTG Duration 12 weeks 2 Impairment ROM Impairment L shoulder flexion Short Term Goal (STG) Pt will improve L shoulder flexion AROM in scaption plane to at least 90 deg in order to demonstrate improved shoulder mobility for dressing and reaching STG Duration 9 weeks Decaler Goal (LTG) Pt will improve L shoulder flexion AROM in scaption plane to at least 105 deg in order to demonstrate improved shoulder mobility for dressing and reaching LTG Duration 12 weeks 1 Impairment quickdash Impairment 46 or 79.5% impaired Short Term Goal (STG) Pt will report <60% impairment in L shoulder use per Quickdash to demonstrate improved QOL STG Duration 8 weeks Assisted Goal (LTG) Pt will report <60% impairment in L shoulder use per Quickdash to demonstrate improved QOL and activity tolerance LTG Duration 12 weeks Assessment Summary Assessment 3 weeks post op this session. Patient into session with 79 deg flexion PROM start of session left shoulder compared to 81 start of session 2023. PROM left shoulder flexion/scaption to 90 deg with PROM during session. Physical Therapy Plan Frequency and Duration Frequency of Treatment 1-2x/wk Duration of treatment (weeks) 12 Plan of Care Start Date 04/29/24 Plan of Care End Date 07/26/24 Next Visit Focus/Plan Next Note Type Treatment Note Next Visit Plan PROM, wrist/cervical spine/ elbow AROM, publication specialist strength, pendulums Review pendulums to ensure passive, along with AROM wrist flex/ext PROM only (max 90 deg by 6 weeks per protocol)- 90 deg FF and ER to neutral per protocol No AAROM, AROM until 6 weeks per protocol If good tolerance for PROM then 1x/wk until 6 weeks
--- NOTE | 2024-05-20 12:25 | PT.OTN ---
Current Diagnoses Primary osteoarthritis, left shoulder (05/20/24) Stiffness of left shoulder, not elsewhere classified (05/20/24) Weakness (05/20/24) Physical Therapy Treatment Note PT-OP-A Visit Information Start: 04/29/24 09:02 Freq: Status: Active Protocol: Document 05/20/24 09:44 NM (Rec: 05/20/24 10:35 NM [id number]) Out-Patient Physical Therapy Visit Information Visit Information Visit Type Treatment Note Visit Note 15 visits, DOS 04/25/24 Visit Start Time 09:46 Visit Stop Time 10:30 Visit Number 5 Evaluation Information Evaluation Date 04/29/24 Precautions Precautions 4 weeks: 05/23, 6 weeks: 06/06, 8 weeks: 06/20, 10 weeks: 07/04, 12 weeks: 07/18 Reverse TSA precautions (DOS 04/25/24): no IR/Ext, no Ext past neutral Sling for 6 weeks, PROM goal up to 90 deg at 6 weeks and ER to neutral per protocol, No AROM until 6 weeks PT-OP-B Current Condition Start: 04/29/24 09:02 Freq: Status: Active Protocol: Document 04/29/24 09:03 NM (Rec: 04/29/24 09:55 NM [id number]) Current Condition History of Current Condition Onset Date DOS 04/25/24 Current Complaints pain, sleeping, mobility, strength History of Current Condition Pt presents with L rTSA on . He had no complications . He presents with his partner , who helped provide hx. Pt has large red bruise on the L biceps muscle belly, unsure if due to surgery or when sleeping. Pt has been wearing the sling, which his partner has been helping assist. Prior to surgery, he was doing exercises from previous PT, but he got tremendous pain in L shoulder- got referral due to rotator cuff tear. Pt reports pain has been well managed, has not been on any pain meds but using cryotherapy 4-5x/day. He has most discomfort with shoulder in sleeping (bed and recliner) . Pt also has nocturia, so has been sleeping in recliner. Partner has moved coffee table , has night lights, removed obstacles. Next follow up with Dr. Yuan: 05/10 (take off dressing and momo). Has midline neck pain as well, hard to look up. Treatment Goals Patient/Caregiver Goals return to normal 2 handed life Prior Functional Status Baseline Function- ADL's Independent Baseline Function- Mobility Independent Current Functional Impairments (Reported) Functional Limitations- ADL's dressing, grooming Functional Limitations- Mobility/Gait reaching, lifting PT-OP-C Subjective Start: 04/29/24 09:02 Freq: Status: Active Protocol: Document 05/20/24 09:44 NM (Rec: 05/20/24 10:35 NM [id number]) OP-PT Subjective Patient Comments Patient Comments Pt reports that he has had difficulty sleeping, currently on couch. He reports 4/10 L shoulder pain at night when sleeping due to tossing/ turning on couch. He generally has not had any pain during the day, he applies ice for pain reduction as needed (hasn 't done any during the week). sees surgeon on 06/05 PT-OP-E Functional Tests Start: 04/29/24 09:02 Freq: Status: Active Protocol: Document 04/29/24 09:03 NM (Rec: 04/29/24 09:55 NM [id number]) Functional Tests Apley's Scratch Test Action 1- Left N/A Action 1- Right opposite shoulder Action 2- Left N/A Action 2- Right T3 Action 3- Left N/A Action 3- Right T9 PT-OP-F Manual Assessment Start: 04/29/24 09:02 Freq: Status: Active Protocol: Document 04/29/24 09:03 NM (Rec: 04/29/24 16:42 NM [id number]) Manual Assessments Soft Tissue Assessment Soft Tissue Mobility Assessment Increased pectoralis muscle tightness, forward head and shoulders Joint Mobility Assessment Joint Mobility Assessment Right shoulder mobility limited in all planes on contralateral side to surgery PT-OP-J Posture/Palpation/Skin Start: 04/29/24 09:02 Freq: Status: Active Protocol: Document 04/29/24 09:03 NM (Rec: 04/29/24 16:42 NM [id number]) Posture Evaluation Position Standing Head/C-Spine Posture Forward Head T-Spine Posture Increased Kyphosis Shoulder Posture (L) Rounded,(R) Rounded,(L) Forward,(R) Forward Comments Posture Comments L arm positioned in abduction sling. Demonstrates increased foward flexed posture at trunk , neck, and shoulders Palpation Assessment Location L shoulder Palpation Details Tenderness reported along incision, anterior shoulder, AC joint Skin Assessment Incisional Assessment Incision Appearance/Comments Did not remove bandage; dressings clean/dry/intact with no signs of redness or infection Other Assessments Skin Assessment Comments Pt has large red/purple bruise along L biceps and anterior shoulder below surgical site PT-OP-K Range of Motion Start: 04/29/24 09:02 Freq: Status: Active Protocol: Document 04/29/24 09:03 NM (Rec: 04/29/24 09:55 NM [id number]) Shoulder Goniometric Range of Motion Shoulder L PROM Flexion 40 Comments 40 deg passively with forward flexion in pendulum; did not assess others due to surgical precautions R shoulder Flexion 100 Abduction 80 External Rotation at 0 degrees Abduction 40 Internal Rotation Behind Back (text) T9 Comments scaption: 110 deg; demos trunk extension compensation; T3 ER apley PT-OP-M Strength Start: 04/29/24 09:02 Freq: Status: Active Protocol: Document 04/29/24 09:03 NM (Rec: 04/29/24 09:55 NM [id number]) Shoulder Strength Shoulder Manual Muscle Testing Left Comments Did not assess due to surgical precautions Right Flexion 3+ Fair+ Extension 3+ Fair+ Abduction (C5) 3+ Fair+ Adduction 3+ Fair+ External Rotation 3+ Fair+ Internal Rotation 3+ Fair+ PT-OP-Q Treatments Start: 04/29/24 09:02 Freq: Status: Active Protocol: Document 05/20/24 09:44 NM (Rec: 05/20/24 10:35 NM [id number]) Therapeutic Exercises Sitting Exercises scapular retraction/adduction Reps/Minutes 2x5 Comments difficulty coord at scapula, pain free elbow AROM Sitting Exercise Name flex/ext Side left Resistance AROM Reps/Minutes 2x10 ea Comments sitting; pain free, bulge near bicep back in center of elbow Standing Exercises pendulum Standing Exercise Name fwd, horizontal, circular Side left Equipment Used edu to let arm hang Reps/Minutes 1-2 min ea direction Comments noted improved use of momentum with right LE fwd during pendum fwd movement Manual Therapy Treatment Consent Patient gave verbal consent for manual Yes treatment Soft Tissue Mobilization periscapulars Body Location rhomboids, LS, UT Mobilization Type Rolling,Trigger Point Release Intensity/Depth Superficial Body Position Sidelying Comments Trigger points at LS and UT, decreased w/ gentle trigger point release L arm Body Location forearm, biceps muscle belly, pec at axilla, UT, scalenes Mobilization Type Rolling,Other Intensity/Depth Superficial Body Position Hooklying Comments Gentle upward strokes for swelling management (less than at evaluation, bruising gone at biceps but has bulge at biceps muscle belly). Gentle superficial rolling distal > proximal from forearm to bicep muscle belly, avoided healing incision. Gentle superficial rolling at L UT and scalene, in addition to pec at axilla for muscle relaxation and pain reduction. Good tolerance to soft tissue mobilization left forearm Body Location left forearm Mobilization Type Other Intensity/Depth Superficial Body Position Hooklying Comments upward strokes for swelling Manual Techniques scapular isometrics Type L retraction, adduction Body Position Sidelying Reps/Duration 5x5 ea Comments Into PT hand for resistance, pain free isometrics. Limited scapular ROM, poor control PROM left UE Type flexion in scaption plane Body Position Hooklying Reps/Duration 15 min Comments Up to 110 deg FF with elbow extended Positioned with pillow under arm. Monitored for pain PT-OP-T Assessment and Plan Start: 04/29/24 09:02 Freq: Status: Active Protocol: Document 05/20/24 09:44 NM (Rec: 05/20/24 10:35 NM [id number]) Physical Therapy Assessment Goals 6 Impairment ADLs Impairment unable to perform ADLs Tabulating Clerk Goal (LTG) Pt will report that he is able to perform all dressing and grooming per PLOF without limitation due to L shoulder or without increase in baseline pain LTG Duration 12 weeks 5 Impairment HEP Impairment not performing HEP Short Term Goal (STG) Pt will report compliance with HEP at least 3x/wk in order to maximize progression with PT STG Duration 6 weeks Senior Living Goal (LTG) Pt will report compliance with HEP at least 3x/wk in order to demonstrate smooth transition into maintenance program LTG Duration 12 weeks 4 Impairment strength Impairment L shoulder MMT not tested due to precautions Short Term Goal (STG) Pt will improve L shoulder global strength to at least 4- /5 in order to demonstrate improved strength for ADLs/ activities STG Duration 9 weeks Tabulating Clerk Goal (LTG) Pt will improve L shoulder global strength to at least 4/ 5 in order to demonstrate improved strength for ADLs/ activities LTG Duration 12 weeks 3 Impairment ROM Impairment L shoulder ER Short Term Goal (STG) Pt will improve L shoulder ER AROM in scaption plane to at least 20 deg in order to demonstrate improved shoulder mobility for dressing and reaching STG Duration 9 weeks Senior Living Goal (LTG) Pt will improve L shoulder ER AROM in scaption plane to at least 30 deg in order to demonstrate improved shoulder mobility for dressing and reaching LTG Duration 12 weeks 2 Impairment ROM Impairment L shoulder flexion Short Term Goal (STG) Pt will improve L shoulder flexion AROM in scaption plane to at least 90 deg in order to demonstrate improved shoulder mobility for dressing and reaching STG Duration 9 weeks Tabulating Clerk Goal (LTG) Pt will improve L shoulder flexion AROM in scaption plane to at least 105 deg in order to demonstrate improved shoulder mobility for dressing and reaching LTG Duration 12 weeks 1 Impairment quickdash Impairment 46 or 79.5% impaired Short Term Goal (STG) Pt will report <60% impairment in L shoulder use per Quickdash to demonstrate improved QOL STG Duration 8 weeks Tabulating Clerk Goal (LTG) Pt will report <60% impairment in L shoulder use per Quickdash to demonstrate improved QOL and activity tolerance LTG Duration 12 weeks Assessment Summary Assessment Pt up to 110 deg PROM L shoulder flexion in scaption, ER to neutral. Pt has difficulty with coordinating scapular isometrics and has limited scapular mobility. Pt pain free with all scapular isometrics, initiated today to begin periscapular activation . Pt continues to have muscle bulge near biceps distal insertion where muscle belly should rest; possibly due to sling as it returns to midline of anterior elbow with AROM. No bruising or pain present at area at rest or with PROM or AROM. Pt and partner educated to monitor, inform surgeon at visit if does not resolve. Pt would benefit from skilled PT for L shoulder mobility and strength per protocol in order to improve activity tolerance and ability to reach for ADLs Physical Therapy Plan Frequency and Duration Frequency of Treatment 1-2x/wk Duration of treatment (weeks) 12 Plan of Care Start Date 04/29/24 Plan of Care End Date 07/26/24 Therapeutic Interventions Therapeutic Interventions Gait Training,Home Exercise Program,Joint Mobilizations, Manual Therapy,Neuromuscular Re-education,Orthotic/ Prosthetic Management,Patient/ Caregiver Education,Self-Care/ Home Management,Sensory Integration,Soft Tissue Mobilization,Taping, Therapeutic Activities, Therapeutic Exercises Modalities Cold Pack/Ice Massage,Electric Stimulation,Hot Packs, Ultrasound Next Visit Focus/Plan Next Note Type Treatment Note Next Visit Plan scapular control and isometrics PROM, wrist/cervical spine/ elbow AROM, appeals reviewer veteran strength, pendulums Review pendulums to ensure passive, along with AROM wrist flex/ext PROM only (max 90 deg by 6 weeks per protocol)- 90 deg FF and ER to neutral per protocol No AAROM, AROM until 6 weeks per protocol If good tolerance for PROM then 1x/wk until 6 weeks -- PN in 2 visits
--- NOTE | 2024-05-23 15:39 | PT.OTN ---
Current Diagnoses Primary osteoarthritis, left shoulder (05/23/24) Stiffness of left shoulder, not elsewhere classified (05/23/24) Weakness (05/23/24) Physical Therapy Treatment Note PT-OP-A Visit Information Start: 04/29/24 09:02 Freq: Status: Active Protocol: Document 05/23/24 09:00 NM (Rec: 05/23/24 09:44 NM [id number]) Out-Patient Physical Therapy Visit Information Visit Information Visit Type Treatment Note Visit Note 15 visits, DOS 04/25/24 Visit Start Time 09:01 Visit Stop Time 09:41 Visit Number 6 Evaluation Information Evaluation Date 04/29/24 Precautions Precautions 4 weeks: 05/23, 6 weeks: 06/06, 8 weeks: 06/20, 10 weeks: 07/04, 12 weeks: 07/18 Reverse TSA precautions (DOS 04/25/24): no IR/Ext, no Ext past neutral Sling for 6 weeks, PROM goal up to 90 deg at 6 weeks and ER to neutral per protocol, No AROM until 6 weeks PT-OP-B Current Condition Start: 04/29/24 09:02 Freq: Status: Active Protocol: Document 04/29/24 09:03 NM (Rec: 04/29/24 09:55 NM [id number]) Current Condition History of Current Condition Onset Date DOS 04/25/24 Current Complaints pain, sleeping, mobility, strength History of Current Condition Pt presents with L rTSA on . He had no complications . He presents with his partner , who helped provide hx. Pt has large red bruise on the L biceps muscle belly, unsure if due to surgery or when sleeping. Pt has been wearing the sling, which his partner has been helping assist. Prior to surgery, he was doing exercises from previous PT, but he got tremendous pain in L shoulder- got referral due to rotator cuff tear. Pt reports pain has been well managed, has not been on any pain meds but using cryotherapy 4-5x/day. He has most discomfort with shoulder in sleeping (bed and recliner) . Pt also has nocturia, so has been sleeping in recliner. Partner has moved coffee table , has night lights, removed obstacles. Next follow up with Dr. Yuan: 05/10 (take off dressing and momo). Has midline neck pain as well, hard to look up. Treatment Goals Patient/Caregiver Goals return to normal 2 handed life Prior Functional Status Baseline Function- ADL's Independent Baseline Function- Mobility Independent Current Functional Impairments (Reported) Functional Limitations- ADL's dressing, grooming Functional Limitations- Mobility/Gait reaching, lifting PT-OP-C Subjective Start: 04/29/24 09:02 Freq: Status: Active Protocol: Document 05/23/24 09:00 NM (Rec: 05/23/24 09:44 NM [id number]) OP-PT Subjective Patient Comments Patient Comments Pt reports still sleep- deprived. Still has biceps area bulge off center. Denies pain in L shoulder or biceps. Has been compliant with exercises but still has difficulty with pendulum. wearing sling PT-OP-E Functional Tests Start: 04/29/24 09:02 Freq: Status: Active Protocol: Document 04/29/24 09:03 NM (Rec: 04/29/24 09:55 NM [id number]) Functional Tests Apley's Scratch Test Action 1- Left N/A Action 1- Right opposite shoulder Action 2- Left N/A Action 2- Right T3 Action 3- Left N/A Action 3- Right T9 PT-OP-F Manual Assessment Start: 04/29/24 09:02 Freq: Status: Active Protocol: Document 04/29/24 09:03 NM (Rec: 04/29/24 16:42 NM [id number]) Manual Assessments Soft Tissue Assessment Soft Tissue Mobility Assessment Increased pectoralis muscle tightness, forward head and shoulders Joint Mobility Assessment Joint Mobility Assessment Right shoulder mobility limited in all planes on contralateral side to surgery PT-OP-J Posture/Palpation/Skin Start: 04/29/24 09:02 Freq: Status: Active Protocol: Document 04/29/24 09:03 NM (Rec: 04/29/24 16:42 NM [id number]) Posture Evaluation Position Standing Head/C-Spine Posture Forward Head T-Spine Posture Increased Kyphosis Shoulder Posture (L) Rounded,(R) Rounded,(L) Forward,(R) Forward Comments Posture Comments L arm positioned in abduction sling. Demonstrates increased foward flexed posture at trunk , neck, and shoulders Palpation Assessment Location L shoulder Palpation Details Tenderness reported along incision, anterior shoulder, AC joint Skin Assessment Incisional Assessment Incision Appearance/Comments Did not remove bandage; dressings clean/dry/intact with no signs of redness or infection Other Assessments Skin Assessment Comments Pt has large red/purple bruise along L biceps and anterior shoulder below surgical site PT-OP-K Range of Motion Start: 04/29/24 09:02 Freq: Status: Active Protocol: Document 04/29/24 09:03 NM (Rec: 04/29/24 09:55 NM [id number]) Shoulder Goniometric Range of Motion Shoulder L PROM Flexion 40 Comments 40 deg passively with forward flexion in pendulum; did not assess others due to surgical precautions R shoulder Flexion 100 Abduction 80 External Rotation at 0 degrees Abduction 40 Internal Rotation Behind Back (text) T9 Comments scaption: 110 deg; demos trunk extension compensation; T3 ER apley PT-OP-M Strength Start: 04/29/24 09:02 Freq: Status: Active Protocol: Document 04/29/24 09:03 NM (Rec: 04/29/24 09:55 NM [id number]) Shoulder Strength Shoulder Manual Muscle Testing Left Comments Did not assess due to surgical precautions Right Flexion 3+ Fair+ Extension 3+ Fair+ Abduction (C5) 3+ Fair+ Adduction 3+ Fair+ External Rotation 3+ Fair+ Internal Rotation 3+ Fair+ PT-OP-Q Treatments Start: 04/29/24 09:02 Freq: Status: Active Protocol: Document 05/23/24 09:00 NM (Rec: 05/23/24 09:44 NM [id number]) Therapeutic Exercises Sitting Exercises scapular retraction/adduction Equipment Used with facilitation at rhomboid from PT Reps/Minutes 2x5 Comments difficulty coord at scapula, pain free elbow AROM Sitting Exercise Name flex/ext Side left Resistance AROM Reps/Minutes 15 with 3 up and 3 down for control Comments pain free; standing today; elbow in sight in front of body towel squeezes Side left Equipment Used towel Reps/Minutes one minute with wrist flex/ext AROM Comments Pt reports no increased pain wrist AROM Sitting Exercise Name flex/ext, supination/pronation Side left Reps/Minutes 60 sec w/ ball squeeze, 2x10 with wrist pron/sup Comments pain free Standing Exercises pendulum Standing Exercise Name fwd, horizontal, circular Side left Equipment Used edu to let arm hang Reps/Minutes 1-2 min ea direction, 30 CCW, 30 CW Comments cues to reset between reps Manual Therapy Treatment Consent Patient gave verbal consent for manual Yes treatment Soft Tissue Mobilization periscapulars Body Location rhomboids, LS, UT Mobilization Type Rolling,Trigger Point Release Intensity/Depth Superficial Body Position Sidelying Comments Trigger points at LS and UT, decreased w/ gentle trigger point release L arm Body Location forearm, biceps muscle belly, pec at axilla, UT, scalenes Mobilization Type Rolling,Other Intensity/Depth Superficial Body Position Hooklying Comments Gentle upward strokes for swelling management (less than at evaluation, bruising gone at biceps but has bulge at biceps muscle belly). Gentle superficial rolling distal > proximal from forearm to bicep muscle belly, avoided healing incision. Gentle superficial rolling at L UT and scalene, in addition to pec at axilla for muscle relaxation and pain reduction. Good tolerance to soft tissue mobilization left forearm Body Location left forearm Mobilization Type Other Intensity/Depth Superficial Body Position Hooklying Comments upward strokes for swelling Manual Techniques scapular isometrics Type L retraction, adduction Body Position Sidelying Reps/Duration 5x5 ea Comments Into PT hand for resistance, pain free isometrics. Limited scapular ROM, improved control but still limited mobility PROM left UE Type flexion in scaption plane Body Position Hooklying Reps/Duration 15 min Comments Up to 105 deg FF with elbow extended Positioned with pillow under arm. Monitored for pain Self-Care/Home Management Treatment Education Patient Education Home Exercise Program,Posture Other Education Educated to allow arm to hang by side out of sling 3x/day for 5-10 minutes (while not performing any activity) to allow arm to relax and decrease pec/lat tightness from sling HEP- instructed pt to allow arm to dangle like elephant trunk prior to performing pendulums to promote muscle relaxation PT-OP-T Assessment and Plan Start: 04/29/24 09:02 Freq: Status: Active Protocol: Document 05/23/24 09:00 NM (Rec: 05/23/24 09:44 NM [id number]) Physical Therapy Assessment Goals 6 Impairment ADLs Impairment unable to perform ADLs Senior Living Goal (LTG) Pt will report that he is able to perform all dressing and grooming per PLOF without limitation due to L shoulder or without increase in baseline pain LTG Duration 12 weeks 5 Impairment HEP Impairment not performing HEP Short Term Goal (STG) Pt will report compliance with HEP at least 3x/wk in order to maximize progression with PT STG Duration 6 weeks [employer]ulic [employer] Mechanic Goal (LTG) Pt will report compliance with HEP at least 3x/wk in order to demonstrate smooth transition into maintenance program LTG Duration 12 weeks 4 Impairment strength Impairment L shoulder MMT not tested due to precautions Short Term Goal (STG) Pt will improve L shoulder global strength to at least 4- /5 in order to demonstrate improved strength for ADLs/ activities STG Duration 9 weeks [employer] Mechanic Goal (LTG) Pt will improve L shoulder global strength to at least 4/ 5 in order to demonstrate improved strength for ADLs/ activities LTG Duration 12 weeks 3 Impairment ROM Impairment L shoulder ER Short Term Goal (STG) Pt will improve L shoulder ER AROM in scaption plane to at least 20 deg in order to demonstrate improved shoulder mobility for dressing and reaching STG Duration 9 weeks [employer]draulic [employer] Mechanic Goal (LTG) Pt will improve L shoulder ER AROM in scaption plane to at least 30 deg in order to demonstrate improved shoulder mobility for dressing and reaching LTG Duration 12 weeks 2 Impairment ROM Impairment L shoulder flexion Short Term Goal (STG) Pt will improve L shoulder flexion AROM in scaption plane to at least 90 deg in order to demonstrate improved shoulder mobility for dressing and reaching STG Duration 9 weeks [employer]ulic [employer] Mechanic Goal (LTG) Pt will improve L shoulder flexion AROM in scaption plane to at least 105 deg in order to demonstrate improved shoulder mobility for dressing and reaching LTG Duration 12 weeks 1 Impairment quickdash Impairment 46 or 79.5% impaired Short Term Goal (STG) Pt will report <60% impairment in L shoulder use per Quickdash to demonstrate improved QOL STG Duration 8 weeks Senior Living Goal (LTG) Pt will report <60% impairment in L shoulder use per Quickdash to demonstrate improved QOL and activity tolerance LTG Duration 12 weeks Assessment Summary Assessment Pt tolerated session well. Continued with elbow/wrist AROM per protocol, L shoulder PROM. Currently 4 weeks post- op today. PROM L shoulder flexion in scaption plane up to 105 deg without pain, ER to neutral per protocol. No pain during PROM or exercises during. Experiencing tightness and restrictions along L pec/ lat and periscapulars, reduced with gentle soft tissue mobilization. Pt's L arm swelling significantly reduced compared to previous sessions . However, still has small bruise and bulge along L biceps. Pt pain free with all activities during session, but continues to have difficulty with coordinating scapular control and allowing L arm to relax during pendulums for correct execution regardless of cueing. Pt would benefit from skilled PT for L shoulder mobility per protocol in order to improve activity tolerance. Physical Therapy Plan Frequency and Duration Frequency of Treatment 1-2x/wk Duration of treatment (weeks) 12 Plan of Care Start Date 04/29/24 Plan of Care End Date 07/26/24 Therapeutic Interventions Therapeutic Interventions Gait Training,Home Exercise Program,Joint Mobilizations, Manual Therapy,Neuromuscular Re-education,Orthotic/ Prosthetic Management,Patient/ Caregiver Education,Self-Care/ Home Management,Sensory Integration,Soft Tissue Mobilization,Taping, Therapeutic Activities, Therapeutic Exercises Modalities Cold Pack/Ice Massage,Electric Stimulation,Hot Packs, Ultrasound Next Visit Focus/Plan Next Note Type Treatment Note Next Visit Plan scapular control and isometrics PROM, wrist/cervical spine/ elbow AROM, high heel builder strength, pendulums Review pendulums to ensure passive, along with AROM wrist flex/ext PROM only (max 90 deg by 6 weeks per protocol)- 90 deg FF and ER to neutral per protocol No AAROM, AROM until 6 weeks per protocol If good tolerance for PROM then 1x/wk until 6 weeks -- PN in 2 visits
--- NOTE | 2024-05-28 16:02 | PT.OTN ---
Current Diagnoses Primary osteoarthritis, left shoulder (05/28/24) Stiffness of left shoulder, not elsewhere classified (05/28/24) Weakness (05/28/24) Physical Therapy Treatment Note PT-OP-A Visit Information Start: 04/29/24 09:02 Freq: Status: Active Protocol: Document 05/28/24 07:26 NM (Rec: 05/28/24 07:27 NM [id number]) Out-Patient Physical Therapy Visit Information Visit Information Visit Type Progress Note Visit Note 15 visits, DOS 04/25/24 Visit Start Time 09:05 Visit Stop Time 09:45 Visit Number 7 Evaluation Information Evaluation Date 04/29/24 Precautions Precautions 4 weeks: 05/23, 6 weeks: 06/06, 8 weeks: 06/20, 10 weeks: 07/04, 12 weeks: 07/18 Reverse TSA precautions (DOS 04/25/24): no IR/Ext, no Ext past neutral Sling for 6 weeks, PROM goal up to 90 deg at 6 weeks and ER to neutral per protocol, No AROM until 6 weeks PT-OP-B Current Condition Start: 04/29/24 09:02 Freq: Status: Active Protocol: Document 04/29/24 09:03 NM (Rec: 04/29/24 09:55 NM [id number]) Current Condition History of Current Condition Onset Date DOS 04/25/24 Current Complaints pain, sleeping, mobility, strength History of Current Condition Pt presents with L rTSA on . He had no complications . He presents with his partner , who helped provide hx. Pt has large red bruise on the L biceps muscle belly, unsure if due to surgery or when sleeping. Pt has been wearing the sling, which his partner has been helping assist. Prior to surgery, he was doing exercises from previous PT, but he got tremendous pain in L shoulder- got referral due to rotator cuff tear. Pt reports pain has been well managed, has not been on any pain meds but using cryotherapy 4-5x/day. He has most discomfort with shoulder in sleeping (bed and recliner) . Pt also has nocturia, so has been sleeping in recliner. Partner has moved coffee table , has night lights, removed obstacles. Next follow up with Dr. Yuan: 05/10 (take off dressing and momo). Has midline neck pain as well, hard to look up. Treatment Goals Patient/Caregiver Goals return to normal 2 handed life Prior Functional Status Baseline Function- ADL's Independent Baseline Function- Mobility Independent Current Functional Impairments (Reported) Functional Limitations- ADL's dressing, grooming Functional Limitations- Mobility/Gait reaching, lifting PT-OP-C Subjective Start: 04/29/24 09:02 Freq: Status: Active Protocol: Document 05/28/24 07:26 NM (Rec: 05/28/24 07:27 NM [id number]) OP-PT Subjective Patient Comments Patient Comments Pt reports no changes since last session. Reports sleeping is frustrating at night, states that he takes several during day. Reports 0/10 in L shoulder. Goes to see surgeon on 06/05 PT-OP-E Functional Tests Start: 04/29/24 09:02 Freq: Status: Active Protocol: Document 04/29/24 09:03 NM (Rec: 04/29/24 09:55 NM [id number]) Functional Tests Apley's Scratch Test Action 1- Left N/A Action 1- Right opposite shoulder Action 2- Left N/A Action 2- Right T3 Action 3- Left N/A Action 3- Right T9 PT-OP-F Manual Assessment Start: 04/29/24 09:02 Freq: Status: Active Protocol: Document 04/29/24 09:03 NM (Rec: 04/29/24 16:42 NM [id number]) Manual Assessments Soft Tissue Assessment Soft Tissue Mobility Assessment Increased pectoralis muscle tightness, forward head and shoulders Joint Mobility Assessment Joint Mobility Assessment Right shoulder mobility limited in all planes on contralateral side to surgery PT-OP-J Posture/Palpation/Skin Start: 04/29/24 09:02 Freq: Status: Active Protocol: Document 04/29/24 09:03 NM (Rec: 04/29/24 16:42 NM [id number]) Posture Evaluation Position Standing Head/C-Spine Posture Forward Head T-Spine Posture Increased Kyphosis Shoulder Posture (L) Rounded,(R) Rounded,(L) Forward,(R) Forward Comments Posture Comments L arm positioned in abduction sling. Demonstrates increased foward flexed posture at trunk , neck, and shoulders Palpation Assessment Location L shoulder Palpation Details Tenderness reported along incision, anterior shoulder, AC joint Skin Assessment Incisional Assessment Incision Appearance/Comments Did not remove bandage; dressings clean/dry/intact with no signs of redness or infection Other Assessments Skin Assessment Comments Pt has large red/purple bruise along L biceps and anterior shoulder below surgical site PT-OP-K Range of Motion Start: 04/29/24 09:02 Freq: Status: Active Protocol: Document 05/28/24 07:26 NM (Rec: 05/28/24 07:27 NM [id number]) Shoulder Goniometric Range of Motion Shoulder L PROM Flexion 90 Comments eval: 40 deg passively with forward flexion in pendulum; did not assess others due to surgical precautions 05/28/24: 70 deg in pendulum R shoulder Flexion 100 Abduction 80 External Rotation at 0 degrees Abduction 40 Internal Rotation Behind Back (text) T9 Comments scaption: 110 deg; demos trunk extension compensation; T3 ER apley PT-OP-M Strength Start: 04/29/24 09:02 Freq: Status: Active Protocol: Document 05/28/24 07:26 NM (Rec: 05/28/24 07:27 NM [id number]) Shoulder Strength Shoulder Manual Muscle Testing Left Comments Did not assess due to surgical precautions 05/28/24: Did not assess due to surgical precautions Right Flexion 3+ Fair+ Extension 3+ Fair+ Abduction (C5) 3+ Fair+ Adduction 3+ Fair+ External Rotation 3+ Fair+ Internal Rotation 3+ Fair+ PT-OP-Q Treatments Start: 04/29/24 09:02 Freq: Status: Active Protocol: Document 05/28/24 07:26 NM (Rec: 05/28/24 07:27 NM [id number]) Therapeutic Exercises Sitting Exercises shoulder isometrics Sitting Exercise Name trialed: flex and abd in scaption plane Side left Equipment Used into PT hand for slight resistance Reps/Minutes 5x1 Comments submaximal; pain free for all scapular retraction/adduction Sitting Exercise Name 1. retract/add, 2. elevation Reps/Minutes 1. 10, 2. 10 Comments good elevation; limited depression/adduction elbow AROM Sitting Exercise Name flex/ext Side left Resistance AROM Reps/Minutes 15 with 3 up and 3 down for control Comments pain free; standing today; elbow in sight in front of body wrist AROM Sitting Exercise Name flex/ext, supination/pronation Side left Reps/Minutes 60 sec w/ ball squeeze, 2x10 with wrist pron/sup Comments pain free Standing Exercises pendulum Standing Exercise Name fwd, horizontal, circular Side left Equipment Used [facility] to let arm hang Reps/Minutes 1-2 min ea direction, 30 CCW, 30 CW Comments cues to reset between reps; start of session Manual Therapy Treatment Consent Patient gave verbal consent for manual Yes treatment Soft Tissue Mobilization periscapulars Body Location rhomboids, LS, UT, lat Mobilization Type Rolling,Trigger Point Release Intensity/Depth Superficial Body Position Sidelying Comments Tightness along rhomboids, Ls, Ut. Reduced with soft tissue mobilization. Monitored for pain, no trigger point L arm Body Location forearm, biceps muscle belly, pec at axilla, UT, scalenes Mobilization Type Rolling,Other Intensity/Depth Superficial Body Position Hooklying Comments Gentle superficial rolling distal > proximal frombicep muscle belly, avoided healing incision. Gentle superficial rolling at L UT and scalene, in addition to pec at axilla for muscle relaxation and pain reduction. Good tolerance to soft tissue mobilization Manual Techniques scapular isometrics Type L retraction, adduction Body Position Sidelying Reps/Duration 5x3 ea Comments Into PT hand for resistance, pain free isometrics. Limited scapular ROM, improved control but still limited mobility PROM left UE Type flexion in scaption plane Body Position Hooklying Comments Up to 90 deg FF with elbow extended. cued to remain passive, frequent rests to prevent pt from performing AAROM Positioned with pillow under arm. Monitored for pain PT-OP-T Assessment and Plan Start: 04/29/24 09:02 Freq: Status: Active Protocol: Document 05/28/24 07:26 NM (Rec: 05/28/24 07:27 NM [id number]) Physical Therapy Assessment Goals 6 Impairment ADLs Impairment unable to perform ADLs Skilled Nursing Goal (LTG) Pt will report that he is able to perform all dressing and grooming per PLOF without limitation due to L shoulder or without increase in baseline pain LTG Duration 12 weeks 5 Impairment HEP Impairment not performing HEP Short Term Goal (STG) Pt will report compliance with HEP at least 3x/wk in order to maximize progression with PT 05/28/24: performs daily STG Duration 6 weeks [employer] Goal (LTG) Pt will report compliance with HEP at least 3x/wk in order to demonstrate smooth transition into maintenance program LTG Duration 12 weeks 4 Impairment strength Impairment L shoulder MMT not tested due to precautions Short Term Goal (STG) Pt will improve L shoulder global strength to at least 4- /5 in order to demonstrate improved strength for ADLs/ activities 05/28/24: not tested due to precautions STG Duration 9 weeks [employer] Goal (LTG) Pt will improve L shoulder global strength to at least 4/ 5 in order to demonstrate improved strength for ADLs/ activities LTG Duration 12 weeks 3 Impairment ROM Impairment L shoulder ER Short Term Goal (STG) Pt will improve L shoulder ER AROM in scaption plane to at least 20 deg in order to demonstrate improved shoulder mobility for dressing and reaching 05/28/24: PROM ER to neutral per protocol STG Duration 9 weeks Skilled Nursing Goal (LTG) Pt will improve L shoulder ER AROM in scaption plane to at least 30 deg in order to demonstrate improved shoulder mobility for dressing and reaching LTG Duration 12 weeks 2 Impairment ROM Impairment L shoulder flexion Short Term Goal (STG) Pt will improve L shoulder flexion AROM in scaption plane to at least 90 deg in order to demonstrate improved shoulder mobility for dressing and reaching 05/28/24: PROM 90 deg STG Duration 9 weeks [employer] Goal (LTG) Pt will improve L shoulder flexion AROM in scaption plane to at least 105 deg in order to demonstrate improved shoulder mobility for dressing and reaching LTG Duration 12 weeks 1 Impairment quickdash Impairment 46 or 79.5% impaired Short Term Goal (STG) Pt will report <60% impairment in L shoulder use per Quickdash to demonstrate improved QOL 05/28/24: STG Duration 8 weeks Skilled Nursing Goal (LTG) Pt will report <60% impairment in L shoulder use per Quickdash to demonstrate improved QOL and activity tolerance LTG Duration 12 weeks Progress Towards Goals Progress Towards Goals Progressing Toward Goals Assessment Summary Assessment Pt tolerated session well. L shoulder PROM up to 90 deg consistently with foward flexion in scaption plane, ER to neutral in scaption plane. Pt pain free with all but reports occasional slight discomfort with lowering arm. Pt has to be consistently cued for passive motion only. Trialed gentle L shoulder isometrics in scaption plane to initiate deltoid activation as pt begins to start AAROM in next several weeks. Pt pain free with isometrics and positioned in sitting with elbow visible. Pt would benefit from skilled PT for L shoulder mobility and strengthening in order to improve activity tolerance and ability to perform reaching/ dressing ADLs. Physical Therapy Plan Frequency and Duration Frequency of Treatment 1-2x/wk Duration of treatment (weeks) 12 Plan of Care Start Date 04/29/24 Plan of Care End Date 07/26/24 Therapeutic Interventions Therapeutic Interventions Gait Training,Home Exercise Program,Joint Mobilizations, Manual Therapy,Neuromuscular Re-education,Orthotic/ Prosthetic Management,Patient/ Caregiver Education,Self-Care/ Home Management,Sensory Integration,Soft Tissue Mobilization,Taping, Therapeutic Activities, Therapeutic Exercises Modalities Cold Pack/Ice Massage,Electric Stimulation,Hot Packs, Ultrasound Next Visit Focus/Plan Next Note Type Treatment Note Next Visit Plan PROM of L shouler, wrist/elbow AROM, gentle isometrics of delt (avoid ext past neutral) PROM, wrist/cervical spine/ elbow AROM, cigarette maker strength, pendulums Review pendulums to ensure passive, along with AROM wrist flex/ext PROM only (max 90 deg by 6 weeks per protocol)- 90 deg FF and ER to neutral per protocol No AAROM, AROM until 6 weeks per protocol If good tolerance for PROM then 1x/wk until 6 weeks -- PN in 2 visits
--- NOTE | 2024-05-31 12:50 | PT.OTN ---
Current Diagnoses Primary osteoarthritis, left shoulder (05/31/24) Stiffness of left shoulder, not elsewhere classified (05/31/24) Weakness (05/31/24) Physical Therapy Treatment Note PT-OP-A Visit Information Start: 04/29/24 09:02 Freq: Status: Active Protocol: Document 05/31/24 11:19 AB (Rec: 05/31/24 12:50 AB [id number]) Out-Patient Physical Therapy Visit Information Visit Information Visit Type Treatment Note Visit Start Time 11:20 Visit Stop Time 12:06 Visit Number 8 Number of DIVISION CHIEF Visits 1 Evaluation Information Evaluation Date 04/29/24 Precautions Precautions 4 weeks: 05/23, 6 weeks: 06/06, 8 weeks: 06/20, 10 weeks: 07/04, 12 weeks: 07/18 Reverse TSA precautions (DOS 04/25/24): no IR/Ext, no Ext past neutral Sling for 6 weeks, PROM goal up to 90 deg at 6 weeks and ER to neutral per protocol, No AROM until 6 weeks PT-OP-B Current Condition Start: 04/29/24 09:02 Freq: Status: Active Protocol: Document 04/29/24 09:03 NM (Rec: 04/29/24 09:55 NM [id number]) Current Condition History of Current Condition Onset Date DOS 04/25/24 Current Complaints pain, sleeping, mobility, strength History of Current Condition Pt presents with L rTSA on . He had no complications . He presents with his partner , who helped provide hx. Pt has large red bruise on the L biceps muscle belly, unsure if due to surgery or when sleeping. Pt has been wearing the sling, which his partner has been helping assist. Prior to surgery, he was doing exercises from previous PT, but he got tremendous pain in L shoulder- got referral due to rotator cuff tear. Pt reports pain has been well managed, has not been on any pain meds but using cryotherapy 4-5x/day. He has most discomfort with shoulder in sleeping (bed and recliner) . Pt also has nocturia, so has been sleeping in recliner. Partner has moved coffee table , has night lights, removed obstacles. Next follow up with Dr. Yuan: 05/10 (take off dressing and momo). Has midline neck pain as well, hard to look up. Treatment Goals Patient/Caregiver Goals return to normal 2 handed life Prior Functional Status Baseline Function- ADL's Independent Baseline Function- Mobility Independent Current Functional Impairments (Reported) Functional Limitations- ADL's dressing, grooming Functional Limitations- Mobility/Gait reaching, lifting PT-OP-C Subjective Start: 04/29/24 09:02 Freq: Status: Active Protocol: Document 05/31/24 11:19 AB (Rec: 05/31/24 12:50 AB [id number]) OP-PT Subjective Patient Comments Patient Comments Patient/partner reports patient had pain when he grabbed the towel today, with pain left shoulder, reports having no popping or crunching . Gestures to pec left as area where pain occured. PT-OP-E Functional Tests Start: 04/29/24 09:02 Freq: Status: Active Protocol: Document 04/29/24 09:03 NM (Rec: 04/29/24 09:55 NM [id number]) Functional Tests Apley's Scratch Test Action 1- Left N/A Action 1- Right opposite shoulder Action 2- Left N/A Action 2- Right T3 Action 3- Left N/A Action 3- Right T9 PT-OP-F Manual Assessment Start: 04/29/24 09:02 Freq: Status: Active Protocol: Document 04/29/24 09:03 NM (Rec: 04/29/24 16:42 NM [id number]) Manual Assessments Soft Tissue Assessment Soft Tissue Mobility Assessment Increased pectoralis muscle tightness, forward head and shoulders Joint Mobility Assessment Joint Mobility Assessment Right shoulder mobility limited in all planes on contralateral side to surgery PT-OP-J Posture/Palpation/Skin Start: 04/29/24 09:02 Freq: Status: Active Protocol: Document 04/29/24 09:03 NM (Rec: 04/29/24 16:42 NM [id number]) Posture Evaluation Position Standing Head/C-Spine Posture Forward Head T-Spine Posture Increased Kyphosis Shoulder Posture (L) Rounded,(R) Rounded,(L) Forward,(R) Forward Comments Posture Comments L arm positioned in abduction sling. Demonstrates increased foward flexed posture at trunk , neck, and shoulders Palpation Assessment Location L shoulder Palpation Details Tenderness reported along incision, anterior shoulder, AC joint Skin Assessment Incisional Assessment Incision Appearance/Comments Did not remove bandage; dressings clean/dry/intact with no signs of redness or infection Other Assessments Skin Assessment Comments Pt has large red/purple bruise along L biceps and anterior shoulder below surgical site PT-OP-K Range of Motion Start: 04/29/24 09:02 Freq: Status: Active Protocol: Document 05/28/24 07:26 NM (Rec: 05/28/24 07:27 NM [id number]) Shoulder Goniometric Range of Motion Shoulder L PROM Flexion 90 Comments eval: 40 deg passively with forward flexion in pendulum; did not assess others due to surgical precautions 05/28/24: 70 deg in pendulum R shoulder Flexion 100 Abduction 80 External Rotation at 0 degrees Abduction 40 Internal Rotation Behind Back (text) T9 Comments scaption: 110 deg; demos trunk extension compensation; T3 ER apley PT-OP-M Strength Start: 04/29/24 09:02 Freq: Status: Active Protocol: Document 05/28/24 07:26 NM (Rec: 05/28/24 07:27 NM [id number]) Shoulder Strength Shoulder Manual Muscle Testing Left Comments Did not assess due to surgical precautions 05/28/24: Did not assess due to surgical precautions Right Flexion 3+ Fair+ Extension 3+ Fair+ Abduction (C5) 3+ Fair+ Adduction 3+ Fair+ External Rotation 3+ Fair+ Internal Rotation 3+ Fair+ PT-OP-Q Treatments Start: 04/29/24 09:02 Freq: Status: Active Protocol: Document 05/31/24 11:19 AB (Rec: 05/31/24 12:50 AB [id number]) Therapeutic Exercises Supine Exercises CS rotation Supine Exercise Name on occipital float Side bilateral Reps/Minutes 2 min Comments Verbal cues for slowly in pain free range Sitting Exercises elbow AROM Sitting Exercise Name flex/ext Side bilateral Resistance AROM Reps/Minutes X12 Comments reports no pain Standing Exercises UT stretch Standing Exercise Name HEP Side bilateral Reps/Minutes 60 sec X 3 each side Comments verbal and tactile cues, tends to side bend at trunk Manual Therapy Treatment Soft Tissue Mobilization periscapulars Body Location rhomboids, LS, UT, lat Mobilization Type Cross-Friction,Rolling Intensity/Depth Superficial Body Position Sidelying left forearm Body Location left forearm Mobilization Type Cross-Friction,Other Intensity/Depth Superficial Body Position Hooklying Manual Techniques CS sidebend Type PROM Body Position Hooklying Reps/Duration X5 each direction PROM left UE Type flexion in scaption plane, also ER to neutral Body Position Hooklying Comments Up to 90 deg FF with elbow extended. cued to remain passive, frequent rests to prevent pt from performing AAROM Positioned with pillow under arm. Monitored for pain PT-OP-T Assessment and Plan Start: 04/29/24 09:02 Freq: Status: Active Protocol: Document 05/31/24 11:19 AB (Rec: 05/31/24 12:50 AB [id number]) Physical Therapy Assessment Assessment Summary Assessment 5 weeks one day post op. Functional level limited by protocol. Patient with good sil to this session. Physical Therapy Plan Frequency and Duration Frequency of Treatment 1-2x/wk Duration of treatment (weeks) 12 Plan of Care Start Date 04/29/24 Plan of Care End Date 07/26/24 Next Visit Focus/Plan Next Note Type Progress Note Next Visit Plan will be 6 weeks post op, possibly scapular mobilzation, reclined/supine shoulder scaption, row to neutral/side of body avoiding extension. AROM, gentle isometrics of delt (avoid ext past neutral) PN next visit
--- NOTE | 2024-06-07 12:44 | PT.OTN ---
Current Diagnoses Primary osteoarthritis, left shoulder (06/07/24) Stiffness of left shoulder, not elsewhere classified (06/07/24) Weakness (06/07/24) Physical Therapy Treatment Note PT-OP-A Visit Information Start: 04/29/24 09:02 Freq: Status: Active Protocol: Document 06/07/24 09:02 NM (Rec: 06/07/24 09:46 NM [id number]) Out-Patient Physical Therapy Visit Information Visit Information Visit Type Treatment Note Visit Start Time 09:02 Visit Stop Time 09:42 Visit Number 9 Evaluation Information Evaluation Date 04/29/24 Precautions Precautions 4 weeks: 05/23, 6 weeks: 06/06, 8 weeks: 06/20, 10 weeks: 07/04, 12 weeks: 07/18 Reverse TSA precautions (DOS 04/25/24): no IR/Ext, no Ext past neutral Sling for 6 weeks, PROM goal up to 90 deg at 6 weeks and ER to neutral per protocol, No AROM until 6 weeks PT-OP-B Current Condition Start: 04/29/24 09:02 Freq: Status: Active Protocol: Document 04/29/24 09:03 NM (Rec: 04/29/24 09:55 NM [id number]) Current Condition History of Current Condition Onset Date DOS 04/25/24 Current Complaints pain, sleeping, mobility, strength History of Current Condition Pt presents with L rTSA on . He had no complications . He presents with his partner , who helped provide hx. Pt has large red bruise on the L biceps muscle belly, unsure if due to surgery or when sleeping. Pt has been wearing the sling, which his partner has been helping assist. Prior to surgery, he was doing exercises from previous PT, but he got tremendous pain in L shoulder- got referral due to rotator cuff tear. Pt reports pain has been well managed, has not been on any pain meds but using cryotherapy 4-5x/day. He has most discomfort with shoulder in sleeping (bed and recliner) . Pt also has nocturia, so has been sleeping in recliner. Partner has moved coffee table , has night lights, removed obstacles. Next follow up with Dr. Yuan: 05/10 (take off dressing and momo). Has midline neck pain as well, hard to look up. Treatment Goals Patient/Caregiver Goals return to normal 2 handed life Prior Functional Status Baseline Function- ADL's Independent Baseline Function- Mobility Independent Current Functional Impairments (Reported) Functional Limitations- ADL's dressing, grooming Functional Limitations- Mobility/Gait reaching, lifting PT-OP-C Subjective Start: 04/29/24 09:02 Freq: Status: Active Protocol: Document 06/07/24 09:02 NM (Rec: 06/07/24 09:46 NM [id number]) OP-PT Subjective Patient Comments Patient Comments Pt presents without sling. Currently 6 weeks. Surgeon provided protocol to pt, but did not bring to clinic. everything looks god. Pt has been trying to sleep in bed since Mon; states that surgeon said he can sleep on L arm. States surgeon said that bump on bicep is likely hematoma. Has pain in sleeping when moving arm, in sleeping. Unsure about when driving. Sees Kwabena again on 07/17. PT-OP-E Functional Tests Start: 04/29/24 09:02 Freq: Status: Active Protocol: Document 04/29/24 09:03 NM (Rec: 04/29/24 09:55 NM [id number]) Functional Tests Apley's Scratch Test Action 1- Left N/A Action 1- Right opposite shoulder Action 2- Left N/A Action 2- Right T3 Action 3- Left N/A Action 3- Right T9 PT-OP-F Manual Assessment Start: 04/29/24 09:02 Freq: Status: Active Protocol: Document 04/29/24 09:03 NM (Rec: 04/29/24 16:42 NM [id number]) Manual Assessments Soft Tissue Assessment Soft Tissue Mobility Assessment Increased pectoralis muscle tightness, forward head and shoulders Joint Mobility Assessment Joint Mobility Assessment Right shoulder mobility limited in all planes on contralateral side to surgery PT-OP-J Posture/Palpation/Skin Start: 04/29/24 09:02 Freq: Status: Active Protocol: Document 04/29/24 09:03 NM (Rec: 04/29/24 16:42 NM [id number]) Posture Evaluation Position Standing Head/C-Spine Posture Forward Head T-Spine Posture Increased Kyphosis Shoulder Posture (L) Rounded,(R) Rounded,(L) Forward,(R) Forward Comments Posture Comments L arm positioned in abduction sling. Demonstrates increased foward flexed posture at trunk , neck, and shoulders Palpation Assessment Location L shoulder Palpation Details Tenderness reported along incision, anterior shoulder, AC joint Skin Assessment Incisional Assessment Incision Appearance/Comments Did not remove bandage; dressings clean/dry/intact with no signs of redness or infection Other Assessments Skin Assessment Comments Pt has large red/purple bruise along L biceps and anterior shoulder below surgical site PT-OP-K Range of Motion Start: 04/29/24 09:02 Freq: Status: Active Protocol: Document 06/07/24 09:02 NM (Rec: 06/07/24 09:46 NM [id number]) Shoulder Goniometric Range of Motion Shoulder L AROM Comments 06/07/24: AAROM 100 deg, AROM 90 deg in supine in scaption L PROM Flexion 90 Comments eval: 40 deg passively with forward flexion in pendulum; did not assess others due to surgical precautions 05/28/24: 70 deg in pendulum PT-OP-M Strength Start: 04/29/24 09:02 Freq: Status: Active Protocol: Document 05/28/24 07:26 NM (Rec: 05/28/24 07:27 NM [id number]) Shoulder Strength Shoulder Manual Muscle Testing Left Comments Did not assess due to surgical precautions 05/28/24: Did not assess due to surgical precautions Right Flexion 3+ Fair+ Extension 3+ Fair+ Abduction (C5) 3+ Fair+ Adduction 3+ Fair+ External Rotation 3+ Fair+ Internal Rotation 3+ Fair+ PT-OP-Q Treatments Start: 04/29/24 09:02 Freq: Status: Active Protocol: Document 06/07/24 09:02 NM (Rec: 06/07/24 09:46 NM [id number]) Therapeutic Exercises Supine Exercises AAROM Supine Exercise Name flexion in scaption (HEP) Side left Equipment Used dowel, R assist L Reps/Minutes 10, 10 Comments 100-105 deg; cued slower for control, keep elbow from moving into abd Sitting Exercises table slide Sitting Exercise Name AAROM- trialed in PT Side left Reps/Minutes 5, 5 Comments cued rest head on R arm; limited 90 deg scapular retraction/adduction Sitting Exercise Name 1. retract/add, 2. elevation Side left Reps/Minutes 1. 10, 2. 10 Comments good elevation; limited depression/adduction elbow AROM Sitting Exercise Name flex/ext Side bilateral Resistance AROM Reps/Minutes 10 Comments reports no pain Manual Therapy Treatment Consent Patient gave verbal consent for manual Yes treatment Soft Tissue Mobilization periscapulars Body Location rhomboids, LS, UT, lat Mobilization Type Cross-Friction,Rolling Intensity/Depth Superficial Body Position Sidelying Comments Monitored for pain. Demos increased tightness of UT and lat Joint Mobilizations L scapulothoracic Direction add/retraction Grade II Body Position Sidelying Reps/Duration 20 ea Comments monitored for pain, limited mobility into add/depression Manual Techniques PNF Type alternating isotonics Body Location scapular Body Position Sidelying Reps/Duration 5 ea direction Comments AAROM elevation/depression and adduction. monitored for pain . good elevation but limited adduction. Performed following mobilizations scapular isometrics Type L retraction, adduction Body Position Sidelying Reps/Duration 5x5 ea Comments Into PT hand for resistance, pain free isometrics. Limited scapular ROM, improved control but still limited mobility PROM left UE Type flexion in scaption plane, also ER to neutral Body Position Hooklying Reps/Duration 5 Comments Up to 100 deg FF with elbow extended. Prior to AAROM for pt. Monitored for pain. arm supported by pillow PT-OP-T Assessment and Plan Start: 04/29/24 09:02 Freq: Status: Active Protocol: Document 06/07/24 09:02 NM (Rec: 06/07/24 09:46 NM [id number]) Physical Therapy Assessment Goals 6 Impairment ADLs Impairment unable to perform ADLs Usp Goal (LTG) Pt will report that he is able to perform all dressing and grooming per PLOF without limitation due to L shoulder or without increase in baseline pain LTG Duration 12 weeks 5 Impairment HEP Impairment not performing HEP Short Term Goal (STG) Pt will report compliance with HEP at least 3x/wk in order to maximize progression with PT 05/28/24: performs daily STG Duration 6 weeks Usp Goal (LTG) Pt will report compliance with HEP at least 3x/wk in order to demonstrate smooth transition into maintenance program LTG Duration 12 weeks 4 Impairment strength Impairment L shoulder MMT not tested due to precautions Short Term Goal (STG) Pt will improve L shoulder global strength to at least 4- /5 in order to demonstrate improved strength for ADLs/ activities 05/28/24: not tested due to precautions STG Duration 9 weeks Travel Registered Nurse Nicu Goal (LTG) Pt will improve L shoulder global strength to at least 4/ 5 in order to demonstrate improved strength for ADLs/ activities LTG Duration 12 weeks 3 Impairment ROM Impairment L shoulder ER Short Term Goal (STG) Pt will improve L shoulder ER AROM in scaption plane to at least 20 deg in order to demonstrate improved shoulder mobility for dressing and reaching 05/28/24: PROM ER to neutral per protocol STG Duration 9 weeks Usp Goal (LTG) Pt will improve L shoulder ER AROM in scaption plane to at least 30 deg in order to demonstrate improved shoulder mobility for dressing and reaching LTG Duration 12 weeks 2 Impairment ROM Impairment L shoulder flexion Short Term Goal (STG) Pt will improve L shoulder flexion AROM in scaption plane to at least 90 deg in order to demonstrate improved shoulder mobility for dressing and reaching 05/28/24: PROM 90 deg STG Duration 9 weeks Travel Registered Nurse Nicu Goal (LTG) Pt will improve L shoulder flexion AROM in scaption plane to at least 105 deg in order to demonstrate improved shoulder mobility for dressing and reaching LTG Duration 12 weeks 1 Impairment quickdash Impairment 46 or 79.5% impaired Short Term Goal (STG) Pt will report <60% impairment in L shoulder use per Quickdash to demonstrate improved QOL 05/28/24: STG Duration 8 weeks Travel Registered Nurse Nicu Goal (LTG) Pt will report <60% impairment in L shoulder use per Quickdash to demonstrate improved QOL and activity tolerance LTG Duration 12 weeks Assessment Summary Assessment Pt tolerated session well, no L shoulder pain. Initaited AAROM today in flexion. Pt currently 6 weeks post-op. Good tolerance for AAROM but fatigues quickly. Able to achieve up to 100 deg consistently. Cued to limit elbow from moving into abduction and remain in scaption plane as fatigues. However, requires cues for slower motion to prevent jerky movements and for correct execution. Trialed table slides for further AAROM, but pt has difficulty with correct execution. Pt continues to have limitations in global scapular mobility, especially into adduction/retraction; good elevation. Initiated scapular mobilizations in addition to PNF to improved scapular control. Pt has increased soft tissue restrictions of L upper trap and pec, reduced with soft tissue mobilization. Educated pt to continue with precautions and to not perform lifting at this time for safety until performed in PT sessions even though cleared to lift 3# at follow up with surgeon. Pt verbalizes agreement and would benefit from L shoulder mobility and strengthening per protocol in order to improve activity tolerance and ability to perform ADLs. Physical Therapy Plan Frequency and Duration Frequency of Treatment 1-2x/wk Duration of treatment (weeks) 12 Plan of Care Start Date 04/29/24 Plan of Care End Date 07/26/24 Therapeutic Interventions Therapeutic Interventions Gait Training,Home Exercise Program,Joint Mobilizations, Manual Therapy,Neuromuscular Re-education,Orthotic/ Prosthetic Management,Patient/ Caregiver Education,Self-Care/ Home Management,Sensory Integration,Soft Tissue Mobilization,Taping, Therapeutic Activities, Therapeutic Exercises Modalities Cold Pack/Ice Massage,Electric Stimulation,Hot Packs, Ultrasound Next Visit Focus/Plan Next Note Type Treatment Note Next Visit Plan AAROM/AROM- supine > reclined scapular mobilzation, reclined /supine shoulder scaption, row to neutral/side of body avoiding extension. AROM, gentle isometrics of delt ( avoid ext past neutral)
--- NOTE | 2024-06-11 13:35 | PT.OTN ---
Current Diagnoses Primary osteoarthritis, left shoulder (06/11/24) Stiffness of left shoulder, not elsewhere classified (06/11/24) Weakness (06/11/24) Physical Therapy Treatment Note PT-OP-A Visit Information Start: 04/29/24 09:02 Freq: Status: Active Protocol: Document 06/11/24 10:33 NM (Rec: 06/11/24 11:18 NM [id number]) Out-Patient Physical Therapy Visit Information Visit Information Visit Type Treatment Note Visit Note 15 visits, DOS 04/25/24 Visit Start Time 10:35 Visit Stop Time 11:13 Visit Number 10 Evaluation Information Evaluation Date 04/29/24 Precautions Precautions 4 weeks: 05/23, 6 weeks: 06/06, 8 weeks: 06/20, 10 weeks: 07/04, 12 weeks: 07/18 Reverse TSA precautions (DOS 04/25/24): no IR/Ext, no Ext past neutral Sling for 6 weeks, PROM goal up to 90 deg at 6 weeks and ER to neutral per protocol, No AROM until 6 weeks PT-OP-B Current Condition Start: 04/29/24 09:02 Freq: Status: Active Protocol: Document 04/29/24 09:03 NM (Rec: 04/29/24 09:55 NM [id number]) Current Condition History of Current Condition Onset Date DOS 04/25/24 Current Complaints pain, sleeping, mobility, strength History of Current Condition Pt presents with L rTSA on . He had no complications . He presents with his partner , who helped provide hx. Pt has large red bruise on the L biceps muscle belly, unsure if due to surgery or when sleeping. Pt has been wearing the sling, which his partner has been helping assist. Prior to surgery, he was doing exercises from previous PT, but he got tremendous pain in L shoulder- got referral due to rotator cuff tear. Pt reports pain has been well managed, has not been on any pain meds but using cryotherapy 4-5x/day. He has most discomfort with shoulder in sleeping (bed and recliner) . Pt also has nocturia, so has been sleeping in recliner. Partner has moved coffee table , has night lights, removed obstacles. Next follow up with Dr. Yuan: 05/10 (take off dressing and momo). Has midline neck pain as well, hard to look up. Treatment Goals Patient/Caregiver Goals return to normal 2 handed life Prior Functional Status Baseline Function- ADL's Independent Baseline Function- Mobility Independent Current Functional Impairments (Reported) Functional Limitations- ADL's dressing, grooming Functional Limitations- Mobility/Gait reaching, lifting PT-OP-C Subjective Start: 04/29/24 09:02 Freq: Status: Active Protocol: Document 06/11/24 10:33 NM (Rec: 06/11/24 11:18 NM [id number]) OP-PT Subjective Patient Comments Patient Comments Pt reports achiness with pericare when trying to use L hand. No pain excpet twinges with pericare. No difficulty with HEP. Has been sleeping on back but not with pillow under arm. PT-OP-E Functional Tests Start: 04/29/24 09:02 Freq: Status: Active Protocol: Document 04/29/24 09:03 NM (Rec: 04/29/24 09:55 NM [id number]) Functional Tests Apley's Scratch Test Action 1- Left N/A Action 1- Right opposite shoulder Action 2- Left N/A Action 2- Right T3 Action 3- Left N/A Action 3- Right T9 PT-OP-F Manual Assessment Start: 04/29/24 09:02 Freq: Status: Active Protocol: Document 04/29/24 09:03 NM (Rec: 04/29/24 16:42 NM [id number]) Manual Assessments Soft Tissue Assessment Soft Tissue Mobility Assessment Increased pectoralis muscle tightness, forward head and shoulders Joint Mobility Assessment Joint Mobility Assessment Right shoulder mobility limited in all planes on contralateral side to surgery PT-OP-J Posture/Palpation/Skin Start: 04/29/24 09:02 Freq: Status: Active Protocol: Document 04/29/24 09:03 NM (Rec: 04/29/24 16:42 NM [id number]) Posture Evaluation Position Standing Head/C-Spine Posture Forward Head T-Spine Posture Increased Kyphosis Shoulder Posture (L) Rounded,(R) Rounded,(L) Forward,(R) Forward Comments Posture Comments L arm positioned in abduction sling. Demonstrates increased foward flexed posture at trunk , neck, and shoulders Palpation Assessment Location L shoulder Palpation Details Tenderness reported along incision, anterior shoulder, AC joint Skin Assessment Incisional Assessment Incision Appearance/Comments Did not remove bandage; dressings clean/dry/intact with no signs of redness or infection Other Assessments Skin Assessment Comments Pt has large red/purple bruise along L biceps and anterior shoulder below surgical site PT-OP-K Range of Motion Start: 04/29/24 09:02 Freq: Status: Active Protocol: Document 06/07/24 09:02 NM (Rec: 06/07/24 09:46 NM [id number]) Shoulder Goniometric Range of Motion Shoulder L AROM Comments 06/07/24: AAROM 100 deg, AROM 90 deg in supine in scaption L PROM Flexion 90 Comments eval: 40 deg passively with forward flexion in pendulum; did not assess others due to surgical precautions 05/28/24: 70 deg in pendulum PT-OP-M Strength Start: 04/29/24 09:02 Freq: Status: Active Protocol: Document 05/28/24 07:26 NM (Rec: 05/28/24 07:27 NM [id number]) Shoulder Strength Shoulder Manual Muscle Testing Left Comments Did not assess due to surgical precautions 05/28/24: Did not assess due to surgical precautions Right Flexion 3+ Fair+ Extension 3+ Fair+ Abduction (C5) 3+ Fair+ Adduction 3+ Fair+ External Rotation 3+ Fair+ Internal Rotation 3+ Fair+ PT-OP-Q Treatments Start: 04/29/24 09:02 Freq: Status: Active Protocol: Document 06/11/24 10:33 NM (Rec: 06/11/24 11:18 NM [id number]) Therapeutic Exercises Supine Exercises AAROM Supine Exercise Name flexion in scaption (HEP review) Side left Equipment Used dowel, R assist L Reps/Minutes 10, 5 Comments 100 deg, cued slower control on descent Sitting Exercises table slide Sitting Exercise Name AAROM Side left Reps/Minutes 1. table slide 5x5, 2. fwd in scaption 10 on pillow case with 2 hold Comments cued rest head toward table; 85-100 deg in table slide;cued no shrug scapular retraction/adduction Sitting Exercise Name 1. retract/add, 2. elevation, 3. depression Side left Reps/Minutes 1. 10, 2. 10, 3. 10 Comments good elevation; limited depression/adduction Standing Exercises AROM Side left Reps/Minutes 3 Comments with UT comp; cued to limit shrug, mirror for visual feedback pendulum Standing Exercise Name in sitting: fwd/bwd Side left Reps/Minutes 60 Comments following table slides; improve hanging Other Exercises reclined AAROM Other Exercise Name flexion in scaption plane Side left Equipment Used dowel, R assist L Reps/Minutes 3- cued no shrug Comments fatigues quickly; elbows flexed but challenging; denies pain Manual Therapy Treatment Consent Patient gave verbal consent for manual Yes treatment Soft Tissue Mobilization periscapulars Body Location rhomboids, LS, UT, lat Mobilization Type Cross-Friction,Rolling Intensity/Depth Superficial Body Position Sidelying Comments Monitored for pain. Demos increased tightness of UT and lat L arm Body Location biceps muscle belly, pec near axilla Joint Mobilizations L scapulothoracic Direction add/retraction, rotation Grade II Body Position Sidelying Reps/Duration 2x15 ea Comments monitored for pain, limited mobility into add/depression. increased elevation but minimal rotation Manual Techniques PNF Type alternating isotonics Body Location scapular Body Position Sidelying Reps/Duration 5 ea direction Comments AAROM elevation/depression and adduction. monitored for pain . good elevation but limited adduction. Performed following mobilizations scapular isometrics Type L retraction, adduction Body Position Sidelying Reps/Duration 5x5 ea Comments Into PT hand for resistance, pain free isometrics. Limited scapular ROM, improved control but still limited mobility Self-Care/Home Management Treatment Education Patient Education Joint Protection,Pain Management Other Education Educated on pillow placement behind L arm when sleeping supine in bed to limit shoulder ext, recommended pillow placement behind body if pt sleeps on R side to limit L arm moving into ext PT-OP-T Assessment and Plan Start: 04/29/24 09:02 Freq: Status: Active Protocol: Document 06/11/24 10:33 NM (Rec: 06/11/24 11:18 NM [id number]) Physical Therapy Assessment Goals 6 Impairment ADLs Impairment unable to perform ADLs Usp Goal (LTG) Pt will report that he is able to perform all dressing and grooming per PLOF without limitation due to L shoulder or without increase in baseline pain LTG Duration 12 weeks 5 Impairment HEP Impairment not performing HEP Short Term Goal (STG) Pt will report compliance with HEP at least 3x/wk in order to maximize progression with PT 05/28/24: performs daily STG Duration 6 weeks [employer] Goal (LTG) Pt will report compliance with HEP at least 3x/wk in order to demonstrate smooth transition into maintenance program LTG Duration 12 weeks 4 Impairment strength Impairment L shoulder MMT not tested due to precautions Short Term Goal (STG) Pt will improve L shoulder global strength to at least 4- /5 in order to demonstrate improved strength for ADLs/ activities 05/28/24: not tested due to precautions STG Duration 9 weeks Usp Goal (LTG) Pt will improve L shoulder global strength to at least 4/ 5 in order to demonstrate improved strength for ADLs/ activities LTG Duration 12 weeks 3 Impairment ROM Impairment L shoulder ER Short Term Goal (STG) Pt will improve L shoulder ER AROM in scaption plane to at least 20 deg in order to demonstrate improved shoulder mobility for dressing and reaching 05/28/24: PROM ER to neutral per protocol STG Duration 9 weeks Usp Goal (LTG) Pt will improve L shoulder ER AROM in scaption plane to at least 30 deg in order to demonstrate improved shoulder mobility for dressing and reaching LTG Duration 12 weeks 2 Impairment ROM Impairment L shoulder flexion Short Term Goal (STG) Pt will improve L shoulder flexion AROM in scaption plane to at least 90 deg in order to demonstrate improved shoulder mobility for dressing and reaching 05/28/24: PROM 90 deg STG Duration 9 weeks Usp Goal (LTG) Pt will improve L shoulder flexion AROM in scaption plane to at least 105 deg in order to demonstrate improved shoulder mobility for dressing and reaching LTG Duration 12 weeks 1 Impairment quickdash Impairment 46 or 79.5% impaired Short Term Goal (STG) Pt will report <60% impairment in L shoulder use per Quickdash to demonstrate improved QOL 05/28/24: STG Duration 8 weeks Usp Goal (LTG) Pt will report <60% impairment in L shoulder use per Quickdash to demonstrate improved QOL and activity tolerance LTG Duration 12 weeks Assessment Summary Assessment Pt tolerated session well. Currently 6 weeks and 6 days post op. Continued with AAROM in supine flexion (scaption plane). Pt demos improved ROM up to 100 deg consistently. Limited by fatigue and for safety as pt is very jerky with movemetns. Trialed in reclined but very challenging for pt although not painful. Pt continues to have limitations in L scapular mobility and control. He demonstrates a strong upper trapezius compensation against gravity for AAROM/AROM. Educated on sleeping position for safety and to maintain precuations; recommended that pt does not perform pericare with L hand due to precautions . Pt would benefit from skilled PT for L shoulder mobility for reaching and ADLs , in addition to strengthening per protocol in order to demonstrate improved tolerance for ADLs/recreational activities. Physical Therapy Plan Frequency and Duration Frequency of Treatment 1-2x/wk Duration of treatment (weeks) 12 Plan of Care Start Date 04/29/24 Plan of Care End Date 07/26/24 Therapeutic Interventions Therapeutic Interventions Gait Training,Home Exercise Program,Joint Mobilizations, Manual Therapy,Neuromuscular Re-education,Orthotic/ Prosthetic Management,Patient/ Caregiver Education,Self-Care/ Home Management,Sensory Integration,Soft Tissue Mobilization,Taping, Therapeutic Activities, Therapeutic Exercises Modalities Cold Pack/Ice Massage,Electric Stimulation,Hot Packs, Ultrasound Next Visit Focus/Plan Next Note Type Treatment Note Next Visit Plan AAROM/AROM- supine > reclined (review), trial scap dep and mobility. table slide scapular mobilization, reclined/supine shoulder scaption, row to neutral/side of body avoiding extension. AROM, gentle isometrics of delt (avoid ext past neutral)
--- NOTE | 2024-06-11 16:49 | PT-OP ANOTE ---
Per Sherry from Dr. uYan office 06/11/24 at 14:18 following up about Pt inquiry about pt's ROM limitations due to procotol: pt ok for AROM/PROM as tolerated, ok to ER past neutral, no lifting more than 3#, d/c sling.
--- NOTE | 2024-06-14 13:55 | PT.OTN ---
Current Diagnoses Primary osteoarthritis, left shoulder (06/14/24) Stiffness of left shoulder, not elsewhere classified (06/14/24) Weakness (06/14/24) Physical Therapy Treatment Note PT-OP-A Visit Information Start: 04/29/24 09:02 Freq: Status: Active Protocol: Document 06/14/24 08:09 AB (Rec: 06/14/24 09:48 AB [id number]) Out-Patient Physical Therapy Visit Information Visit Information Visit Type Treatment Note Visit Note 15 visits, DOS 04/25/24 [email or web address] Access Code: [email or web address] Visit Start Time 09:03 Visit Stop Time 09:46 Visit Number 11 Number of ALARM SIGNALER Visits 1 Evaluation Information Evaluation Date 04/29/24 Precautions Precautions 4 weeks: 05/23, 6 weeks: 06/06, 8 weeks: 06/20, 10 weeks: 07/04, 12 weeks: 07/18 Reverse TSA precautions (DOS 04/25/24): no IR/Ext, no Ext past neutral Sling for 6 weeks, PROM goal up to 90 deg at 6 weeks and ER to neutral per protocol, No AROM until 6 weeks PT-OP-B Current Condition Start: 04/29/24 09:02 Freq: Status: Active Protocol: Document 04/29/24 09:03 NM (Rec: 04/29/24 09:55 NM [id number]) Current Condition History of Current Condition Onset Date DOS 04/25/24 Current Complaints pain, sleeping, mobility, strength History of Current Condition Pt presents with L rTSA on . He had no complications . He presents with his partner , who helped provide hx. Pt has large red bruise on the L biceps muscle belly, unsure if due to surgery or when sleeping. Pt has been wearing the sling, which his partner has been helping assist. Prior to surgery, he was doing exercises from previous PT, but he got tremendous pain in L shoulder- got referral due to rotator cuff tear. Pt reports pain has been well managed, has not been on any pain meds but using cryotherapy 4-5x/day. He has most discomfort with shoulder in sleeping (bed and recliner) . Pt also has nocturia, so has been sleeping in recliner. Partner has moved coffee table , has night lights, removed obstacles. Next follow up with Dr. Yuan: 05/10 (take off dressing and momo). Has midline neck pain as well, hard to look up. Treatment Goals Patient/Caregiver Goals return to normal 2 handed life Prior Functional Status Baseline Function- ADL's Independent Baseline Function- Mobility Independent Current Functional Impairments (Reported) Functional Limitations- ADL's dressing, grooming Functional Limitations- Mobility/Gait reaching, lifting PT-OP-C Subjective Start: 04/29/24 09:02 Freq: Status: Active Protocol: Document 06/14/24 08:09 AB (Rec: 06/14/24 09:48 AB [id number]) OP-PT Subjective Patient Comments Patient Comments Patient reports he is getting more careful with how he deals with the UE. Patient reports donning pants continues to be difficult. AROM 88 deg scaption start of session Left shoulder. PT-OP-E Functional Tests Start: 04/29/24 09:02 Freq: Status: Active Protocol: Document 04/29/24 09:03 NM (Rec: 04/29/24 09:55 NM [id number]) Functional Tests Apley's Scratch Test Action 1- Left N/A Action 1- Right opposite shoulder Action 2- Left N/A Action 2- Right T3 Action 3- Left N/A Action 3- Right T9 PT-OP-F Manual Assessment Start: 04/29/24 09:02 Freq: Status: Active Protocol: Document 04/29/24 09:03 NM (Rec: 04/29/24 16:42 NM [id number]) Manual Assessments Soft Tissue Assessment Soft Tissue Mobility Assessment Increased pectoralis muscle tightness, forward head and shoulders Joint Mobility Assessment Joint Mobility Assessment Right shoulder mobility limited in all planes on contralateral side to surgery PT-OP-J Posture/Palpation/Skin Start: 04/29/24 09:02 Freq: Status: Active Protocol: Document 04/29/24 09:03 NM (Rec: 04/29/24 16:42 NM [id number]) Posture Evaluation Position Standing Head/C-Spine Posture Forward Head T-Spine Posture Increased Kyphosis Shoulder Posture (L) Rounded,(R) Rounded,(L) Forward,(R) Forward Comments Posture Comments L arm positioned in abduction sling. Demonstrates increased foward flexed posture at trunk , neck, and shoulders Palpation Assessment Location L shoulder Palpation Details Tenderness reported along incision, anterior shoulder, AC joint Skin Assessment Incisional Assessment Incision Appearance/Comments Did not remove bandage; dressings clean/dry/intact with no signs of redness or infection Other Assessments Skin Assessment Comments Pt has large red/purple bruise along L biceps and anterior shoulder below surgical site PT-OP-K Range of Motion Start: 04/29/24 09:02 Freq: Status: Active Protocol: Document 06/07/24 09:02 NM (Rec: 06/07/24 09:46 NM [id number]) Shoulder Goniometric Range of Motion Shoulder L AROM Comments 06/07/24: AAROM 100 deg, AROM 90 deg in supine in scaption L PROM Flexion 90 Comments eval: 40 deg passively with forward flexion in pendulum; did not assess others due to surgical precautions 05/28/24: 70 deg in pendulum PT-OP-M Strength Start: 04/29/24 09:02 Freq: Status: Active Protocol: Document 05/28/24 07:26 NM (Rec: 05/28/24 07:27 NM [id number]) Shoulder Strength Shoulder Manual Muscle Testing Left Comments Did not assess due to surgical precautions 05/28/24: Did not assess due to surgical precautions Right Flexion 3+ Fair+ Extension 3+ Fair+ Abduction (C5) 3+ Fair+ Adduction 3+ Fair+ External Rotation 3+ Fair+ Internal Rotation 3+ Fair+ PT-OP-Q Treatments Start: 04/29/24 09:02 Freq: Status: Active Protocol: Document 06/14/24 08:09 AB (Rec: 06/14/24 09:48 AB [id number]) Therapeutic Exercises Sidelying Exercises external rotation Sidelying Exercise Name AROM Side left Reps/Minutes X10 Comments Verbal cues Sitting Exercises reclined shoulder flexion Sitting Exercise Name hands clasped then single arm left elbow flexed Reps/Minutes X10 each Standing Exercises table slide Standing Exercise Name flexion Side left Reps/Minutes X15 Comments verbal cues, pillow case over UE scap squeeze Standing Exercise Name HEP Side bilateral Reps/Minutes X10 Comments Verbal cues for UE in sight L stretch Standing Exercise Name HEP Side bilateral Reps/Minutes X5 with 10 second hold Comments verbal and visual cues Manual Therapy Treatment Soft Tissue Mobilization L arm Body Location biceps muscle belly, pec near axilla, scar tissue/healed areas Joint Mobilizations L scapulothoracic Direction into depression and adduction Grade III Body Position Sidelying Reps/Duration X15 each Manual Techniques scapular isometrics Type L retraction, adduction Body Position Sidelying Reps/Duration X10 each sidelying X10 scap retract seated PT-OP-T Assessment and Plan Start: 04/29/24 09:02 Freq: Status: Active Protocol: Document 06/14/24 08:09 AB (Rec: 06/14/24 09:48 AB [id number]) Physical Therapy Assessment Goals 6 Impairment ADLs Impairment unable to perform ADLs Neurology Hospitalist Goal (LTG) Pt will report that he is able to perform all dressing and grooming per PLOF without limitation due to L shoulder or without increase in baseline pain LTG Duration 12 weeks 5 Impairment HEP Impairment not performing HEP Short Term Goal (STG) Pt will report compliance with HEP at least 3x/wk in order to maximize progression with PT 05/28/24: performs daily STG Duration 6 weeks Jail Goal (LTG) Pt will report compliance with HEP at least 3x/wk in order to demonstrate smooth transition into maintenance program LTG Duration 12 weeks 4 Impairment strength Impairment L shoulder MMT not tested due to precautions Short Term Goal (STG) Pt will improve L shoulder global strength to at least 4- /5 in order to demonstrate improved strength for ADLs/ activities 05/28/24: not tested due to precautions STG Duration 9 weeks Neurology Hospitalist Goal (LTG) Pt will improve L shoulder global strength to at least 4/ 5 in order to demonstrate improved strength for ADLs/ activities LTG Duration 12 weeks 3 Impairment ROM Impairment L shoulder ER Short Term Goal (STG) Pt will improve L shoulder ER AROM in scaption plane to at least 20 deg in order to demonstrate improved shoulder mobility for dressing and reaching 05/28/24: PROM ER to neutral per protocol STG Duration 9 weeks Jail Goal (LTG) Pt will improve L shoulder ER AROM in scaption plane to at least 30 deg in order to demonstrate improved shoulder mobility for dressing and reaching LTG Duration 12 weeks 2 Impairment ROM Impairment L shoulder flexion Short Term Goal (STG) Pt will improve L shoulder flexion AROM in scaption plane to at least 90 deg in order to demonstrate improved shoulder mobility for dressing and reaching 05/28/24: PROM 90 deg STG Duration 9 weeks Jail Goal (LTG) Pt will improve L shoulder flexion AROM in scaption plane to at least 105 deg in order to demonstrate improved shoulder mobility for dressing and reaching LTG Duration 12 weeks 1 Impairment quickdash Impairment 46 or 79.5% impaired Short Term Goal (STG) Pt will report <60% impairment in L shoulder use per Quickdash to demonstrate improved QOL 05/28/24: STG Duration 8 weeks Jail Goal (LTG) Pt will report <60% impairment in L shoulder use per Quickdash to demonstrate improved QOL and activity tolerance LTG Duration 12 weeks Assessment Summary Assessment 7 weeks 2 days post op AROM left shoulder flexion 94 deg end of session. Physical Therapy Plan Frequency and Duration Frequency of Treatment 1-2x/wk Duration of treatment (weeks) 12 Plan of Care Start Date 04/29/24 Plan of Care End Date 07/26/24 Next Visit Focus/Plan Next Visit Plan AAROM/AROM- supine > reclined (review), trial scap dep and mobility. Assess sil to table slide scapular mobilization, reclined/supine shoulder scaption, row to neutral/side of body avoiding extension. AROM, gentle isometrics of delt (avoid ext past neutral)
--- NOTE | 2024-06-18 16:35 | PT.OTN ---
Current Diagnoses Primary osteoarthritis, left shoulder (06/18/24) Stiffness of left shoulder, not elsewhere classified (06/18/24) Weakness (06/18/24) Physical Therapy Treatment Note PT-OP-A Visit Information Start: 04/29/24 09:02 Freq: Status: Active Protocol: Document 06/18/24 13:23 AB (Rec: 06/18/24 16:34 AB [id number]) Out-Patient Physical Therapy Visit Information Visit Information Visit Type Treatment Note Visit Note 15 visits, DOS 04/25/24 [email or web address] Access Code: [email or web address] Visit Start Time 14:35 Visit Stop Time 15:19 Visit Number 12 Number of MANAGER MENTAL HEALTH Visits 2 Evaluation Information Evaluation Date 04/29/24 Precautions Precautions 4 weeks: 05/23, 6 weeks: 06/06, 8 weeks: 06/20, 10 weeks: 07/04, 12 weeks: 07/18 Reverse TSA precautions (DOS 04/25/24): no IR/Ext, no Ext past neutral Sling for 6 weeks, PROM goal up to 90 deg at 6 weeks and ER to neutral per protocol, No AROM until 6 weeks PT-OP-B Current Condition Start: 04/29/24 09:02 Freq: Status: Active Protocol: Document 04/29/24 09:03 NM (Rec: 04/29/24 09:55 NM [id number]) Current Condition History of Current Condition Onset Date DOS 04/25/24 Current Complaints pain, sleeping, mobility, strength History of Current Condition Pt presents with L rTSA on . He had no complications . He presents with his partner , who helped provide hx. Pt has large red bruise on the L biceps muscle belly, unsure if due to surgery or when sleeping. Pt has been wearing the sling, which his partner has been helping assist. Prior to surgery, he was doing exercises from previous PT, but he got tremendous pain in L shoulder- got referral due to rotator cuff tear. Pt reports pain has been well managed, has not been on any pain meds but using cryotherapy 4-5x/day. He has most discomfort with shoulder in sleeping (bed and recliner) . Pt also has nocturia, so has been sleeping in recliner. Partner has moved coffee table , has night lights, removed obstacles. Next follow up with Dr. Yuan: 05/10 (take off dressing and momo). Has midline neck pain as well, hard to look up. Treatment Goals Patient/Caregiver Goals return to normal 2 handed life Prior Functional Status Baseline Function- ADL's Independent Baseline Function- Mobility Independent Current Functional Impairments (Reported) Functional Limitations- ADL's dressing, grooming Functional Limitations- Mobility/Gait reaching, lifting PT-OP-C Subjective Start: 04/29/24 09:02 Freq: Status: Active Protocol: Document 06/18/24 13:23 AB (Rec: 06/18/24 16:34 AB [id number]) OP-PT Subjective Patient Comments Patient Comments Patient reports he gets a twinge of pain occasionally. Patient and partner reports patient has been performing his HEP. AROM right shoulder scaption 104 deg start of session. PT-OP-E Functional Tests Start: 04/29/24 09:02 Freq: Status: Active Protocol: Document 04/29/24 09:03 NM (Rec: 04/29/24 09:55 NM [id number]) Functional Tests Apley's Scratch Test Action 1- Left N/A Action 1- Right opposite shoulder Action 2- Left N/A Action 2- Right T3 Action 3- Left N/A Action 3- Right T9 PT-OP-F Manual Assessment Start: 04/29/24 09:02 Freq: Status: Active Protocol: Document 04/29/24 09:03 NM (Rec: 04/29/24 16:42 NM [id number]) Manual Assessments Soft Tissue Assessment Soft Tissue Mobility Assessment Increased pectoralis muscle tightness, forward head and shoulders Joint Mobility Assessment Joint Mobility Assessment Right shoulder mobility limited in all planes on contralateral side to surgery PT-OP-J Posture/Palpation/Skin Start: 04/29/24 09:02 Freq: Status: Active Protocol: Document 04/29/24 09:03 NM (Rec: 04/29/24 16:42 NM [id number]) Posture Evaluation Position Standing Head/C-Spine Posture Forward Head T-Spine Posture Increased Kyphosis Shoulder Posture (L) Rounded,(R) Rounded,(L) Forward,(R) Forward Comments Posture Comments L arm positioned in abduction sling. Demonstrates increased foward flexed posture at trunk , neck, and shoulders Palpation Assessment Location L shoulder Palpation Details Tenderness reported along incision, anterior shoulder, AC joint Skin Assessment Incisional Assessment Incision Appearance/Comments Did not remove bandage; dressings clean/dry/intact with no signs of redness or infection Other Assessments Skin Assessment Comments Pt has large red/purple bruise along L biceps and anterior shoulder below surgical site PT-OP-K Range of Motion Start: 04/29/24 09:02 Freq: Status: Active Protocol: Document 06/07/24 09:02 NM (Rec: 06/07/24 09:46 NM [id number]) Shoulder Goniometric Range of Motion Shoulder L AROM Comments 06/07/24: AAROM 100 deg, AROM 90 deg in supine in scaption L PROM Flexion 90 Comments eval: 40 deg passively with forward flexion in pendulum; did not assess others due to surgical precautions 05/28/24: 70 deg in pendulum PT-OP-M Strength Start: 04/29/24 09:02 Freq: Status: Active Protocol: Document 05/28/24 07:26 NM (Rec: 05/28/24 07:27 NM [id number]) Shoulder Strength Shoulder Manual Muscle Testing Left Comments Did not assess due to surgical precautions 05/28/24: Did not assess due to surgical precautions Right Flexion 3+ Fair+ Extension 3+ Fair+ Abduction (C5) 3+ Fair+ Adduction 3+ Fair+ External Rotation 3+ Fair+ Internal Rotation 3+ Fair+ PT-OP-Q Treatments Start: 04/29/24 09:02 Freq: Status: Active Protocol: Document 06/18/24 13:23 AB (Rec: 06/18/24 16:34 AB [id number]) Therapeutic Exercises Sidelying Exercises external rotation Sidelying Exercise Name AROM Side left Reps/Minutes X10 Comments Verbal cues Sitting Exercises reclined shoulder flexion Sitting Exercise Name single arm Standing Exercises isometrics Standing Exercise Name flex, abduction, extension Side left Reps/Minutes X10 each Comments pillow and towel roll for extension table slide Standing Exercise Name flexion Side left Reps/Minutes X10 Comments verbal cues, towel as per patient request scap squeeze Standing Exercise Name HEP Side bilateral Reps/Minutes X10 Comments Verbal cues for UE in sight Other Exercises reclined AAROM Other Exercise Name flexion in scaption plane Side left Equipment Used AROM Reps/Minutes X10 Manual Therapy Treatment Soft Tissue Mobilization periscapulars Body Location rhomboids, LS, UT, lat Mobilization Type Cross-Friction,Rolling Intensity/Depth Superficial Body Position Sidelying Comments Monitored for pain. Demos increased tightness of UT and lat L arm Body Location biceps muscle belly, pec near axilla, scar tissue/healed areas, Mobilization Type Cross-Friction,Rolling, Sustained Pressure Intensity/Depth Moderate Body Position Hooklying Joint Mobilizations L scapulothoracic Direction into depression and adduction Grade III Body Position Sidelying Reps/Duration X15 each Manual Techniques scapular isometrics Type L retraction, adduction Body Position Sidelying Reps/Duration X10 each sidelying X10 scap retract seated PROM left UE Type ER and flexion in scapular plane Body Position Hooklying Reps/Duration 5 PT-OP-T Assessment and Plan Start: 04/29/24 09:02 Freq: Status: Active Protocol: Document 06/18/24 13:23 AB (Rec: 06/18/24 16:34 AB [id number]) Physical Therapy Assessment Goals 6 Impairment ADLs Impairment unable to perform ADLs Shelter Goal (LTG) Pt will report that he is able to perform all dressing and grooming per PLOF without limitation due to L shoulder or without increase in baseline pain LTG Duration 12 weeks 5 Impairment HEP Impairment not performing HEP Short Term Goal (STG) Pt will report compliance with HEP at least 3x/wk in order to maximize progression with PT 05/28/24: performs daily STG Duration 6 weeks Watch [facility] Cutter Goal (LTG) Pt will report compliance with HEP at least 3x/wk in order to demonstrate smooth transition into maintenance program LTG Duration 12 weeks 4 Impairment strength Impairment L shoulder MMT not tested due to precautions Short Term Goal (STG) Pt will improve L shoulder global strength to at least 4- /5 in order to demonstrate improved strength for ADLs/ activities 05/28/24: not tested due to precautions STG Duration 9 weeks Watch [facility] Cutter Goal (LTG) Pt will improve L shoulder global strength to at least 4/ 5 in order to demonstrate improved strength for ADLs/ activities LTG Duration 12 weeks 3 Impairment ROM Impairment L shoulder ER Short Term Goal (STG) Pt will improve L shoulder ER AROM in scaption plane to at least 20 deg in order to demonstrate improved shoulder mobility for dressing and reaching 05/28/24: PROM ER to neutral per protocol STG Duration 9 weeks Shelter Goal (LTG) Pt will improve L shoulder ER AROM in scaption plane to at least 30 deg in order to demonstrate improved shoulder mobility for dressing and reaching LTG Duration 12 weeks 2 Impairment ROM Impairment L shoulder flexion Short Term Goal (STG) Pt will improve L shoulder flexion AROM in scaption plane to at least 90 deg in order to demonstrate improved shoulder mobility for dressing and reaching 05/28/24: PROM 90 deg STG Duration 9 weeks Shelter Goal (LTG) Pt will improve L shoulder flexion AROM in scaption plane to at least 105 deg in order to demonstrate improved shoulder mobility for dressing and reaching LTG Duration 12 weeks 1 Impairment quickdash Impairment 46 or 79.5% impaired Short Term Goal (STG) Pt will report <60% impairment in L shoulder use per Quickdash to demonstrate improved QOL 05/28/24: STG Duration 8 weeks Watch Crystal Cutter Goal (LTG) Pt will report <60% impairment in L shoulder use per Quickdash to demonstrate improved QOL and activity tolerance LTG Duration 12 weeks Assessment Summary Assessment 7 weeeks 6 days post op AROM left shoulder flexion in scapular plane 98 deg end of session. Physical Therapy Plan Frequency and Duration Frequency of Treatment 1-2x/wk Duration of treatment (weeks) 12 Plan of Care Start Date 04/29/24 Plan of Care End Date 07/26/24 Next Visit Focus/Plan Next Note Type Treatment Note Next Visit Plan AAROM/AROM- supine > reclined (review), trial scap dep and mobility. scapular mobilization, reclined/supine shoulder scaption, row to neutral/side of body avoiding extension. AROM, Assess sil to gentle isometrics of delt (avoid ext past neutral)
--- NOTE | 2024-06-21 12:50 | PT.OTN ---
Current Diagnoses Primary osteoarthritis, left shoulder (06/21/24) Stiffness of left shoulder, not elsewhere classified (06/21/24) Weakness (06/21/24) Physical Therapy Treatment Note PT-OP-A Visit Information Start: 04/29/24 09:02 Freq: Status: Active Protocol: Document 06/21/24 10:35 NM (Rec: 06/21/24 11:18 NM [id number]) Out-Patient Physical Therapy Visit Information Visit Information Visit Type Progress Note Visit Note 15 visits, DOS 04/25/24 Visit Start Time 10:35 Visit Stop Time 11:13 Visit Number 13 Evaluation Information Evaluation Date 04/29/24 Precautions Precautions 4 weeks: 05/23, 6 weeks: 06/06, 8 weeks: 06/20, 10 weeks: 07/04, 12 weeks: 07/18 Reverse TSA precautions (DOS 04/25/24): no IR/Ext, no Ext past neutral Sling for 6 weeks, PROM goal up to 90 deg at 6 weeks and ER to neutral per protocol, No AROM until 6 weeks PT-OP-B Current Condition Start: 04/29/24 09:02 Freq: Status: Active Protocol: Document 04/29/24 09:03 NM (Rec: 04/29/24 09:55 NM [id number]) Current Condition History of Current Condition Onset Date DOS 04/25/24 Current Complaints pain, sleeping, mobility, strength History of Current Condition Pt presents with L rTSA on . He had no complications . He presents with his partner , who helped provide hx. Pt has large red bruise on the L biceps muscle belly, unsure if due to surgery or when sleeping. Pt has been wearing the sling, which his partner has been helping assist. Prior to surgery, he was doing exercises from previous PT, but he got tremendous pain in L shoulder- got referral due to rotator cuff tear. Pt reports pain has been well managed, has not been on any pain meds but using cryotherapy 4-5x/day. He has most discomfort with shoulder in sleeping (bed and recliner) . Pt also has nocturia, so has been sleeping in recliner. Partner has moved coffee table , has night lights, removed obstacles. Next follow up with Dr. Yuan: 05/10 (take off dressing and momo). Has midline neck pain as well, hard to look up. Treatment Goals Patient/Caregiver Goals return to normal 2 handed life Prior Functional Status Baseline Function- ADL's Independent Baseline Function- Mobility Independent Current Functional Impairments (Reported) Functional Limitations- ADL's dressing, grooming Functional Limitations- Mobility/Gait reaching, lifting PT-OP-C Subjective Start: 04/29/24 09:02 Freq: Status: Active Protocol: Document 06/21/24 10:35 NM (Rec: 06/21/24 11:18 NM [id number]) OP-PT Subjective Patient Comments Patient Comments Pt reports he slept on L shoulder. He has been compliant with updated HEP. Report tried isometrics yesterday, states feels good PT-OP-E Functional Tests Start: 04/29/24 09:02 Freq: Status: Active Protocol: Document 04/29/24 09:03 NM (Rec: 04/29/24 09:55 NM [id number]) Functional Tests Apley's Scratch Test Action 1- Left N/A Action 1- Right opposite shoulder Action 2- Left N/A Action 2- Right T3 Action 3- Left N/A Action 3- Right T9 PT-OP-F Manual Assessment Start: 04/29/24 09:02 Freq: Status: Active Protocol: Document 04/29/24 09:03 NM (Rec: 04/29/24 16:42 NM [id number]) Manual Assessments Soft Tissue Assessment Soft Tissue Mobility Assessment Increased pectoralis muscle tightness, forward head and shoulders Joint Mobility Assessment Joint Mobility Assessment Right shoulder mobility limited in all planes on contralateral side to surgery PT-OP-J Posture/Palpation/Skin Start: 04/29/24 09:02 Freq: Status: Active Protocol: Document 04/29/24 09:03 NM (Rec: 04/29/24 16:42 NM [id number]) Posture Evaluation Position Standing Head/C-Spine Posture Forward Head T-Spine Posture Increased Kyphosis Shoulder Posture (L) Rounded,(R) Rounded,(L) Forward,(R) Forward Comments Posture Comments L arm positioned in abduction sling. Demonstrates increased foward flexed posture at trunk , neck, and shoulders Palpation Assessment Location L shoulder Palpation Details Tenderness reported along incision, anterior shoulder, AC joint Skin Assessment Incisional Assessment Incision Appearance/Comments Did not remove bandage; dressings clean/dry/intact with no signs of redness or infection Other Assessments Skin Assessment Comments Pt has large red/purple bruise along L biceps and anterior shoulder below surgical site PT-OP-K Range of Motion Start: 04/29/24 09:02 Freq: Status: Active Protocol: Document 06/21/24 10:35 NM (Rec: 06/21/24 11:18 NM [id number]) Shoulder Goniometric Range of Motion Shoulder L AROM Flexion 104 External Rotation at 0 degrees Abduction 45 Comments 06/07/24: AAROM 100 deg, AROM 90 deg in supine in scaption 06/21/24: 104 deg flexion in scaption, 45 deg ER in scaption PT-OP-M Strength Start: 04/29/24 09:02 Freq: Status: Active Protocol: Document 06/21/24 10:35 NM (Rec: 06/21/24 12:50 NM [id number]) Shoulder Strength Shoulder Manual Muscle Testing Left Flexion 3 Fair External Rotation 3 Fair Comments IE: Did not assess due to surgical precautions 05/28/24: Did not assess due to surgical precautions 06/21/24: full available ROM against gravity without resistance or pain Right Flexion 3+ Fair+ Extension 3+ Fair+ Abduction (C5) 3+ Fair+ Adduction 3+ Fair+ External Rotation 3+ Fair+ Internal Rotation 3+ Fair+ PT-OP-Q Treatments Start: 04/29/24 09:02 Freq: Status: Active Protocol: Document 06/21/24 10:35 NM (Rec: 06/21/24 11:18 NM [id number]) Therapeutic Exercises Supine Exercises AAROM Supine Exercise Name ER Side left Equipment Used L assist R w/ dowel Reps/Minutes 2x10 Comments to pt tolerance, arm supported pillow; cue to remain pain free ROM Sidelying Exercises external rotation Sidelying Exercise Name AROM Side left Equipment Used towel roll Reps/Minutes X10 Comments Verbal cues Sitting Exercises reclined shoulder flexion Sitting Exercise Name elbow slightly flexed Side left Resistance AROM Reps/Minutes 2x5 Comments 105 deg; cued to limit UT comp as fatigue Standing Exercises isometrics Standing Exercise Name flex, abduction, extension HEP review Side left Reps/Minutes 10x3 ea Comments pillow and towel roll for extension; cued to move arm not body pendulum Standing Exercise Name in sitting: fwd/bwd Side left Reps/Minutes 60 Comments following reclined AROM Manual Therapy Treatment Consent Patient gave verbal consent for manual Yes treatment Soft Tissue Mobilization periscapulars Body Location rhomboids, LS, UT, lat Mobilization Type Cross-Friction,Rolling Intensity/Depth Superficial Body Position Sidelying Comments Monitored for pain. Demos increased tightness of UT and lat, trigger point at UT L arm Body Location biceps muscle belly, pec near axilla, scar tissue/healed areas, Mobilization Type Cross-Friction,Rolling, Sustained Pressure Intensity/Depth Moderate Body Position Hooklying Joint Mobilizations L 1st rib Direction caudal Grade III Body Position Sidelying Reps/Duration 15 Comments with breathing, reduced with mobilization; monitored for pain L scapulothoracic Direction into depression and adduction Grade III Body Position Sidelying Reps/Duration X15 each PT-OP-T Assessment and Plan Start: 04/29/24 09:02 Freq: Status: Active Protocol: Document 06/21/24 10:35 NM (Rec: 06/21/24 11:18 NM [id number]) Physical Therapy Assessment Goals 6 Impairment ADLs Impairment unable to perform ADLs Group Home Goal (LTG) Pt will report that he is able to perform all dressing and grooming per PLOF without limitation due to L shoulder or without increase in baseline pain 06/21/24: pt continues to have limitations in dressing LTG Duration 12 weeks 5 Impairment HEP Impairment not performing HEP Short Term Goal (STG) Pt will report compliance with HEP at least 3x/wk in order to maximize progression with PT 05/28/24: performs daily STG Duration 6 weeks Accounting Tutor Goal (LTG) Pt will report compliance with HEP at least 3x/wk in order to demonstrate smooth transition into maintenance program LTG Duration 12 weeks 4 Impairment strength Impairment L shoulder MMT not tested due to precautions Short Term Goal (STG) Pt will improve L shoulder global strength to at least 4- /5 in order to demonstrate improved strength for ADLs/ activities 05/28/24: not tested due to precautions 06/21/24: 3/5, able to achieve ROM w/o resistance STG Duration 9 weeks PROGRESSING Group Home Goal (LTG) Pt will improve L shoulder global strength to at least 4/ 5 in order to demonstrate improved strength for ADLs/ activities LTG Duration 12 weeks 3 Impairment ROM Impairment L shoulder ER Short Term Goal (STG) Pt will improve L shoulder ER AROM in scaption plane to at least 20 deg in order to demonstrate improved shoulder mobility for dressing and reaching 05/28/24: PROM ER to neutral per protocol 06/21/24: 45 deg ER in scaption AROM STG Duration 9 weeks MET Group Home Goal (LTG) Pt will improve L shoulder ER AROM in scaption plane to at least 30 deg in order to demonstrate improved shoulder mobility for dressing and reaching 06/21/24: 45 deg ER in scaption AROM LTG Duration 12 weeks 2 Impairment ROM Impairment L shoulder flexion Short Term Goal (STG) Pt will improve L shoulder flexion AROM in scaption plane to at least 90 deg in order to demonstrate improved shoulder mobility for dressing and reaching 05/28/24: PROM 90 deg 06/21/24: 104 deg flexion in scaption STG Duration 9 weeks MET Group Home Goal (LTG) Pt will improve L shoulder flexion AROM in scaption plane to at least 105 deg in order to demonstrate improved shoulder mobility for dressing and reaching LTG Duration 12 weeks 1 Impairment quickdash Impairment 46 or 79.5% impaired Short Term Goal (STG) Pt will report <60% impairment in L shoulder use per Quickdash to demonstrate improved QOL 06/21/24: 27.5% impairment STG Duration 8 weeks Group Home Goal (LTG) Pt will report <60% impairment in L shoulder use per Quickdash to demonstrate improved QOL and activity tolerance 06/21/24: 27.5% impairment LTG Duration 12 weeks MET Progress Towards Goals Progress Towards Goals Progressing Toward Goals,Goals Met Assessment Summary Assessment Pt tolerated session well. Currently 8 weeks post op. Demos 105 deg shoulder flexion today in reclined AROM, 104 deg today in standing. He has an upper trap compensation unless cued, then pt able to still achieve 104 deg in flexion (scaption). Pt requires moderate cues for correct execution during shoulder isometrics at wall. Pt has tendency to shift body into isometric vs using arm. Reports achy following session but denies pain. Initiated supine AAROM shoulder ER with dowel to pt tolerance with strict education to pt and partner to maintain pain free range. Pt would benefit from skilled PT for L shoulder mobility and strengthening per protocol in order to improve ability to perform ADLs. Physical Therapy Plan Frequency and Duration Frequency of Treatment 1-2x/wk Duration of treatment (weeks) 12 Plan of Care Start Date 04/29/24 Plan of Care End Date 07/26/24 Therapeutic Interventions Therapeutic Interventions Gait Training,Home Exercise Program,Joint Mobilizations, Manual Therapy,Neuromuscular Re-education,Orthotic/ Prosthetic Management,Patient/ Caregiver Education,Self-Care/ Home Management,Sensory Integration,Soft Tissue Mobilization,Taping, Therapeutic Activities, Therapeutic Exercises Modalities Cold Pack/Ice Massage,Electric Stimulation,Hot Packs, Ultrasound Next Visit Focus/Plan Next Note Type Treatment Note Next Visit Plan AAROM/AROM- supine > reclined , trial scap dep and mobility. Cont w/ inderjit (add ER/IR), reclined AROM (review since added to HEP). Emphasize quality over quantity. Trial stair slide w/ towel scapular mobilization, reclined/supine shoulder scaption, trial row to neutral /side of body avoiding extension AROM
--- NOTE | 2024-07-01 12:52 | PT.OTN ---
Current Diagnoses Primary osteoarthritis, left shoulder (07/01/24) Stiffness of left shoulder, not elsewhere classified (07/01/24) Weakness (07/01/24) Physical Therapy Treatment Note PT-OP-A Visit Information Start: 04/29/24 09:02 Freq: Status: Active Protocol: Document 07/01/24 09:23 AB (Rec: 07/01/24 12:52 AB [id number]) Out-Patient Physical Therapy Visit Information Visit Information Visit Type Treatment Note Visit Note 15 visits, DOS 04/25/24 Visit Start Time 10:34 Visit Stop Time 11:20 Visit Number 14 Number of [employer]ALL INSPECTOR Visits 1 Evaluation Information Evaluation Date 04/29/24 Precautions Precautions 4 weeks: 05/23, 6 weeks: 06/06, 8 weeks: 06/20, 10 weeks: 07/04, 12 weeks: 07/18 Reverse TSA precautions (DOS 04/25/24): no IR/Ext, no Ext past neutral Sling for 6 weeks, PROM goal up to 90 deg at 6 weeks and ER to neutral per protocol, No AROM until 6 weeks PT-OP-B Current Condition Start: 04/29/24 09:02 Freq: Status: Active Protocol: Document 04/29/24 09:03 NM (Rec: 04/29/24 09:55 NM [id number]) Current Condition History of Current Condition Onset Date DOS 04/25/24 Current Complaints pain, sleeping, mobility, strength History of Current Condition Pt presents with L rTSA on . He had no complications . He presents with his partner , who helped provide hx. Pt has large red bruise on the L biceps muscle belly, unsure if due to surgery or when sleeping. Pt has been wearing the sling, which his partner has been helping assist. Prior to surgery, he was doing exercises from previous PT, but he got tremendous pain in L shoulder- got referral due to rotator cuff tear. Pt reports pain has been well managed, has not been on any pain meds but using cryotherapy 4-5x/day. He has most discomfort with shoulder in sleeping (bed and recliner) . Pt also has nocturia, so has been sleeping in recliner. Partner has moved coffee table , has night lights, removed obstacles. Next follow up with Dr. Yuan: 05/10 (take off dressing and momo). Has midline neck pain as well, hard to look up. Treatment Goals Patient/Caregiver Goals return to normal 2 handed life Prior Functional Status Baseline Function- ADL's Independent Baseline Function- Mobility Independent Current Functional Impairments (Reported) Functional Limitations- ADL's dressing, grooming Functional Limitations- Mobility/Gait reaching, lifting PT-OP-C Subjective Start: 04/29/24 09:02 Freq: Status: Active Protocol: Document 07/01/24 09:23 AB (Rec: 07/01/24 12:52 AB [id number]) OP-PT Subjective Patient Comments Patient Comments Patient reports he has soreness post isometrics, but not during. AROM left shoulder scaption 106 deg start of session. PT-OP-E Functional Tests Start: 04/29/24 09:02 Freq: Status: Active Protocol: Document 04/29/24 09:03 NM (Rec: 04/29/24 09:55 NM [id number]) Functional Tests Apley's Scratch Test Action 1- Left N/A Action 1- Right opposite shoulder Action 2- Left N/A Action 2- Right T3 Action 3- Left N/A Action 3- Right T9 PT-OP-F Manual Assessment Start: 04/29/24 09:02 Freq: Status: Active Protocol: Document 04/29/24 09:03 NM (Rec: 04/29/24 16:42 NM [id number]) Manual Assessments Soft Tissue Assessment Soft Tissue Mobility Assessment Increased pectoralis muscle tightness, forward head and shoulders Joint Mobility Assessment Joint Mobility Assessment Right shoulder mobility limited in all planes on contralateral side to surgery PT-OP-J Posture/Palpation/Skin Start: 04/29/24 09:02 Freq: Status: Active Protocol: Document 04/29/24 09:03 NM (Rec: 04/29/24 16:42 NM [id number]) Posture Evaluation Position Standing Head/C-Spine Posture Forward Head T-Spine Posture Increased Kyphosis Shoulder Posture (L) Rounded,(R) Rounded,(L) Forward,(R) Forward Comments Posture Comments L arm positioned in abduction sling. Demonstrates increased foward flexed posture at trunk , neck, and shoulders Palpation Assessment Location L shoulder Palpation Details Tenderness reported along incision, anterior shoulder, AC joint Skin Assessment Incisional Assessment Incision Appearance/Comments Did not remove bandage; dressings clean/dry/intact with no signs of redness or infection Other Assessments Skin Assessment Comments Pt has large red/purple bruise along L biceps and anterior shoulder below surgical site PT-OP-K Range of Motion Start: 04/29/24 09:02 Freq: Status: Active Protocol: Document 06/21/24 10:35 NM (Rec: 06/21/24 11:18 NM [id number]) Shoulder Goniometric Range of Motion Shoulder L AROM Flexion 104 External Rotation at 0 degrees Abduction 45 Comments 06/07/24: AAROM 100 deg, AROM 90 deg in supine in scaption 06/21/24: 104 deg flexion in scaption, 45 deg ER in scaption PT-OP-M Strength Start: 04/29/24 09:02 Freq: Status: Active Protocol: Document 06/21/24 10:35 NM (Rec: 06/21/24 12:50 NM [id number]) Shoulder Strength Shoulder Manual Muscle Testing Left Flexion 3 Fair External Rotation 3 Fair Comments IE: Did not assess due to surgical precautions 05/28/24: Did not assess due to surgical precautions 06/21/24: full available ROM against gravity without resistance or pain Right Flexion 3+ Fair+ Extension 3+ Fair+ Abduction (C5) 3+ Fair+ Adduction 3+ Fair+ External Rotation 3+ Fair+ Internal Rotation 3+ Fair+ PT-OP-Q Treatments Start: 04/29/24 09:02 Freq: Status: Active Protocol: Document 07/01/24 09:23 AB (Rec: 07/01/24 12:52 AB [id number]) Therapeutic Exercises Standing Exercises scapular depression Standing Exercise Name HEP Side left Reps/Minutes X10 Comments Verbal and visual cues isometrics Standing Exercise Name ER and IR HEP Side left Reps/Minutes X10 with 5 sec holds Comments verbal, visual and tactile cues patient ed to perform pain free table slide Standing Exercise Name flexion Side left Reps/Minutes X10 Comments review as patient combined table slide and L stretch at home L stretch Reps/Minutes X8 Comments review as patient combined table slide and L stretch at home UT stretch Standing Exercise Name HEP Side bilateral Reps/Minutes 60 sec X 2 each side Comments verbal and visual cues Manual Therapy Treatment Soft Tissue Mobilization periscapulars Body Location rhomboids, LS, UT, lat Mobilization Type Cross-Friction,Rolling Intensity/Depth Superficial Body Position Sidelying Comments Monitored for pain. Demos increased tightness of UT and lat, trigger point at UT L arm Body Location biceps muscle belly, pec near axilla, scar tissue/healed areas, Mobilization Type Cross-Friction,Rolling, Sustained Pressure Intensity/Depth Moderate Body Position Hooklying Joint Mobilizations L scapulothoracic Direction into depression and adduction Grade III Body Position Sidelying Reps/Duration X15 each Manual Techniques scapular isometrics Type L retraction, adduction Body Position Sidelying Reps/Duration X10 each sidelying X10 scap retract seated PROM left UE Type ER and flexion in scapular plane Body Position Hooklying Reps/Duration 5 Comments gentle contract relax into ER PT-OP-T Assessment and Plan Start: 04/29/24 09:02 Freq: Status: Active Protocol: Document 07/01/24 09:23 AB (Rec: 07/01/24 12:52 AB [id number]) Physical Therapy Assessment Goals 6 Impairment ADLs Impairment unable to perform ADLs Store Detective Goal (LTG) Pt will report that he is able to perform all dressing and grooming per PLOF without limitation due to L shoulder or without increase in baseline pain 06/21/24: pt continues to have limitations in dressing LTG Duration 12 weeks 5 Impairment HEP Impairment not performing HEP Short Term Goal (STG) Pt will report compliance with HEP at least 3x/wk in order to maximize progression with PT 05/28/24: performs daily STG Duration 6 weeks Prison Goal (LTG) Pt will report compliance with HEP at least 3x/wk in order to demonstrate smooth transition into maintenance program LTG Duration 12 weeks 4 Impairment strength Impairment L shoulder MMT not tested due to precautions Short Term Goal (STG) Pt will improve L shoulder global strength to at least 4- /5 in order to demonstrate improved strength for ADLs/ activities 05/28/24: not tested due to precautions 06/21/24: 3/5, able to achieve ROM w/o resistance STG Duration 9 weeks PROGRESSING [facility] Goal (LTG) Pt will improve L shoulder global strength to at least 4/ 5 in order to demonstrate improved strength for ADLs/ activities LTG Duration 12 weeks 3 Impairment ROM Impairment L shoulder ER Short Term Goal (STG) Pt will improve L shoulder ER AROM in scaption plane to at least 20 deg in order to demonstrate improved shoulder mobility for dressing and reaching 05/28/24: PROM ER to neutral per protocol 06/21/24: 45 deg ER in scaption AROM STG Duration 9 weeks MET Store Detective Goal (LTG) Pt will improve L shoulder ER AROM in scaption plane to at least 30 deg in order to demonstrate improved shoulder mobility for dressing and reaching 06/21/24: 45 deg ER in scaption AROM LTG Duration 12 weeks 2 Impairment ROM Impairment L shoulder flexion Short Term Goal (STG) Pt will improve L shoulder flexion AROM in scaption plane to at least 90 deg in order to demonstrate improved shoulder mobility for dressing and reaching 05/28/24: PROM 90 deg 06/21/24: 104 deg flexion in scaption STG Duration 9 weeks MET Store Detective Goal (LTG) Pt will improve L shoulder flexion AROM in scaption plane to at least 105 deg in order to demonstrate improved shoulder mobility for dressing and reaching LTG Duration 12 weeks 1 Impairment quickdash Impairment 46 or 79.5% impaired Short Term Goal (STG) Pt will report <60% impairment in L shoulder use per Quickdash to demonstrate improved QOL 06/21/24: 27.5% impairment STG Duration 8 weeks Store Detective Goal (LTG) Pt will report <60% impairment in L shoulder use per Quickdash to demonstrate improved QOL and activity tolerance 06/21/24: 27.5% impairment LTG Duration 12 weeks MET Assessment Summary Assessment 107 deg AROM left shoulder flexion end of session. ROM and strength left shoulder continues to be limited. Good return demonstration for isometric ER and IR today. Physical Therapy Plan Frequency and Duration Frequency of Treatment 1-2x/wk Duration of treatment (weeks) 12 Plan of Care Start Date 04/29/24 Plan of Care End Date 07/26/24 Next Visit Focus/Plan Next Note Type Treatment Note Next Visit Plan AAROM/AROM- supine > reclined , review scap dep and mobility . review isometrics. reclined AROM (review since added to HEP). Emphasize quality over quantity. Trial stair slide w/ towel scapular mobilization, reclined/supine shoulder scaption, trial row to neutral /side of body avoiding extension AROM Review HEP
--- NOTE | 2024-07-04 12:54 | PT.OTN ---
Current Diagnoses Primary osteoarthritis, left shoulder (07/04/24) Stiffness of left shoulder, not elsewhere classified (07/04/24) Weakness (07/04/24) Physical Therapy Treatment Note PT-OP-A Visit Information Start: 04/29/24 09:02 Freq: Status: Active Protocol: Document 07/04/24 10:34 AB (Rec: 07/04/24 11:19 AB [id number]) Out-Patient Physical Therapy Visit Information Visit Information Visit Start Time 10:34 Visit Stop Time 11:16 Visit Number 15 Number of SCHOOL TRANSPORTATION DIRECTOR Visits 2 PT-OP-B Current Condition Start: 04/29/24 09:02 Freq: Status: Active Protocol: Document 04/29/24 09:03 NM (Rec: 04/29/24 09:55 NM [id number]) Current Condition History of Current Condition Onset Date DOS 04/25/24 Current Complaints pain, sleeping, mobility, strength History of Current Condition Pt presents with L rTSA on . He had no complications . He presents with his partner , who helped provide hx. Pt has large red bruise on the L biceps muscle belly, unsure if due to surgery or when sleeping. Pt has been wearing the sling, which his partner has been helping assist. Prior to surgery, he was doing exercises from previous PT, but he got tremendous pain in L shoulder- got referral due to rotator cuff tear. Pt reports pain has been well managed, has not been on any pain meds but using cryotherapy 4-5x/day. He has most discomfort with shoulder in sleeping (bed and recliner) . Pt also has nocturia, so has been sleeping in recliner. Partner has moved coffee table , has night lights, removed obstacles. Next follow up with Dr. Yuan: 05/10 (take off dressing and momo). Has midline neck pain as well, hard to look up. Treatment Goals Patient/Caregiver Goals return to normal 2 handed life Prior Functional Status Baseline Function- ADL's Independent Baseline Function- Mobility Independent Current Functional Impairments (Reported) Functional Limitations- ADL's dressing, grooming Functional Limitations- Mobility/Gait reaching, lifting PT-OP-C Subjective Start: 04/29/24 09:02 Freq: Status: Active Protocol: Document 07/04/24 10:34 AB (Rec: 07/04/24 11:19 AB [id number]) OP-PT Subjective Patient Comments Patient Comments Patient reports he has been sleeping on left side with no pain. Patient reports he only did one exercise so far this morning. AROM 106 deg left shoulder start of session. ( supine 130 deg ) PT-OP-E Functional Tests Start: 04/29/24 09:02 Freq: Status: Active Protocol: Document 04/29/24 09:03 NM (Rec: 04/29/24 09:55 NM [id number]) Functional Tests Apley's Scratch Test Action 1- Left N/A Action 1- Right opposite shoulder Action 2- Left N/A Action 2- Right T3 Action 3- Left N/A Action 3- Right T9 PT-OP-F Manual Assessment Start: 04/29/24 09:02 Freq: Status: Active Protocol: Document 04/29/24 09:03 NM (Rec: 04/29/24 16:42 NM [id number]) Manual Assessments Soft Tissue Assessment Soft Tissue Mobility Assessment Increased pectoralis muscle tightness, forward head and shoulders Joint Mobility Assessment Joint Mobility Assessment Right shoulder mobility limited in all planes on contralateral side to surgery PT-OP-J Posture/Palpation/Skin Start: 04/29/24 09:02 Freq: Status: Active Protocol: Document 04/29/24 09:03 NM (Rec: 04/29/24 16:42 NM [id number]) Posture Evaluation Position Standing Head/C-Spine Posture Forward Head T-Spine Posture Increased Kyphosis Shoulder Posture (L) Rounded,(R) Rounded,(L) Forward,(R) Forward Comments Posture Comments L arm positioned in abduction sling. Demonstrates increased foward flexed posture at trunk , neck, and shoulders Palpation Assessment Location L shoulder Palpation Details Tenderness reported along incision, anterior shoulder, AC joint Skin Assessment Incisional Assessment Incision Appearance/Comments Did not remove bandage; dressings clean/dry/intact with no signs of redness or infection Other Assessments Skin Assessment Comments Pt has large red/purple bruise along L biceps and anterior shoulder below surgical site PT-OP-K Range of Motion Start: 04/29/24 09:02 Freq: Status: Active Protocol: Document 06/21/24 10:35 NM (Rec: 06/21/24 11:18 NM [id number]) Shoulder Goniometric Range of Motion Shoulder L AROM Flexion 104 External Rotation at 0 degrees Abduction 45 Comments 06/07/24: AAROM 100 deg, AROM 90 deg in supine in scaption 06/21/24: 104 deg flexion in scaption, 45 deg ER in scaption PT-OP-M Strength Start: 04/29/24 09:02 Freq: Status: Active Protocol: Document 06/21/24 10:35 NM (Rec: 06/21/24 12:50 NM [id number]) Shoulder Strength Shoulder Manual Muscle Testing Left Flexion 3 Fair External Rotation 3 Fair Comments IE: Did not assess due to surgical precautions 05/28/24: Did not assess due to surgical precautions 06/21/24: full available ROM against gravity without resistance or pain Right Flexion 3+ Fair+ Extension 3+ Fair+ Abduction (C5) 3+ Fair+ Adduction 3+ Fair+ External Rotation 3+ Fair+ Internal Rotation 3+ Fair+ PT-OP-Q Treatments Start: 04/29/24 09:02 Freq: Status: Active Protocol: Document 07/04/24 10:34 AB (Rec: 07/04/24 11:19 AB [id number]) Therapeutic Exercises Sidelying Exercises external rotation Sidelying Exercise Name AROM Side left Reps/Minutes X10 Comments Verbal cues Standing Exercises wall slide Standing Exercise Name step to wall, wall slide, lift off and lower without use of wall Side left Reps/Minutes X10 X2 Comments * second set with wall lowering and scapular facilitation manually. Rail slide Side left Equipment Used railing Reps/Minutes X15 Comments Verbal and visual cues, patient ed to perform pain free scapular depression Standing Exercise Name HEP Side left Reps/Minutes X10 Comments Verbal and visual cues isometrics Standing Exercise Name ER and IR HEP Side left Reps/Minutes X10 with 5 sec holds Comments verbal, visual and tactile cues patient ed to perform pain free scap squeeze Side bilateral Reps/Minutes X10 Other Exercises reclined AAROM Other Exercise Name flexion in scaption plane Side left Equipment Used AROM Reps/Minutes X10 Manual Therapy Treatment Soft Tissue Mobilization periscapulars Body Location rhomboids, LS, UT, lat Mobilization Type Cross-Friction,Rolling Intensity/Depth Superficial Body Position Sidelying Comments Monitored for pain. Demos increased tightness of UT and lat, trigger point at UT L arm Body Location pec near axilla, scar tissue/ healed areas, Mobilization Type Cross-Friction,Rolling, Sustained Pressure Intensity/Depth Moderate Body Position Hooklying Joint Mobilizations L 1st rib Direction caudal Grade III Body Position Sidelying Reps/Duration 15 L scapulothoracic Direction into depression and adduction Grade III Body Position Sidelying Reps/Duration X15 each Manual Techniques PROM left UE Type ER sidelying and supine Reps/Duration X5 and X 10 PT-OP-T Assessment and Plan Start: 04/29/24 09:02 Freq: Status: Active Protocol: Document 07/04/24 10:34 AB (Rec: 07/04/24 11:19 AB [id number]) Physical Therapy Assessment Goals 6 Impairment ADLs Impairment unable to perform ADLs Quantometer Operator Goal (LTG) Pt will report that he is able to perform all dressing and grooming per PLOF without limitation due to L shoulder or without increase in baseline pain 06/21/24: pt continues to have limitations in dressing LTG Duration 12 weeks 5 Impairment HEP Impairment not performing HEP Short Term Goal (STG) Pt will report compliance with HEP at least 3x/wk in order to maximize progression with PT 05/28/24: performs daily STG Duration 6 weeks Retirement Goal (LTG) Pt will report compliance with HEP at least 3x/wk in order to demonstrate smooth transition into maintenance program LTG Duration 12 weeks 4 Impairment strength Impairment L shoulder MMT not tested due to precautions Short Term Goal (STG) Pt will improve L shoulder global strength to at least 4- /5 in order to demonstrate improved strength for ADLs/ activities 05/28/24: not tested due to precautions 06/21/24: 3/5, able to achieve ROM w/o resistance STG Duration 9 weeks PROGRESSING Quantometer Operator Goal (LTG) Pt will improve L shoulder global strength to at least 4/ 5 in order to demonstrate improved strength for ADLs/ activities LTG Duration 12 weeks 3 Impairment ROM Impairment L shoulder ER Short Term Goal (STG) Pt will improve L shoulder ER AROM in scaption plane to at least 20 deg in order to demonstrate improved shoulder mobility for dressing and reaching 05/28/24: PROM ER to neutral per protocol 06/21/24: 45 deg ER in scaption AROM STG Duration 9 weeks MET Quantometer Operator Goal (LTG) Pt will improve L shoulder ER AROM in scaption plane to at least 30 deg in order to demonstrate improved shoulder mobility for dressing and reaching 06/21/24: 45 deg ER in scaption AROM LTG Duration 12 weeks 2 Impairment ROM Impairment L shoulder flexion Short Term Goal (STG) Pt will improve L shoulder flexion AROM in scaption plane to at least 90 deg in order to demonstrate improved shoulder mobility for dressing and reaching 05/28/24: PROM 90 deg 06/21/24: 104 deg flexion in scaption STG Duration 9 weeks MET Retirement Goal (LTG) Pt will improve L shoulder flexion AROM in scaption plane to at least 105 deg in order to demonstrate improved shoulder mobility for dressing and reaching LTG Duration 12 weeks 1 Impairment quickdash Impairment 46 or 79.5% impaired Short Term Goal (STG) Pt will report <60% impairment in L shoulder use per Quickdash to demonstrate improved QOL 06/21/24: 27.5% impairment STG Duration 8 weeks Quantometer Operator Goal (LTG) Pt will report <60% impairment in L shoulder use per Quickdash to demonstrate improved QOL and activity tolerance 06/21/24: 27.5% impairment LTG Duration 12 weeks MET Assessment Summary Assessment AROM left shoulder flexion 110 deg end of session, with patient reporting no pain end of session. Physical Therapy Plan Next Visit Focus/Plan Next Note Type Treatment Note Next Visit Plan AAROM/AROM- supine > reclined , review scap dep and mobility . review isometrics. reclined AROM (review since added to HEP). Emphasize quality over quantity. continue in clinic stair slide w/ towel/ and wall slide with lift off and lower without wall scapular mobilization, reclined/supine shoulder scaption, trial row to neutral /side of body avoiding extension AROM Review HEP
--- NOTE | 2024-07-09 10:45 | PT.OTN ---
Current Diagnoses Primary osteoarthritis, left shoulder (07/09/24) Stiffness of left shoulder, not elsewhere classified (07/09/24) Weakness (07/09/24) Physical Therapy Treatment Note PT-OP-A Visit Information Start: 04/29/24 09:02 Freq: Status: Active Protocol: Document 07/09/24 09:48 NM (Rec: 07/09/24 10:45 NM [id number]) Out-Patient Physical Therapy Visit Information Visit Information Visit Type Treatment Note Visit Note 15 visits, DOS 04/25/24 Visit Start Time 09:49 Visit Stop Time 10:30 Visit Number 16 Number of MACHINE PACKAGE SEALER Visits 0 Evaluation Information Evaluation Date 04/29/24 Precautions Precautions 4 weeks: 05/23, 6 weeks: 06/06, 8 weeks: 06/20, 10 weeks: 07/04, 12 weeks: 07/18 Reverse TSA precautions (DOS 04/25/24): no IR/Ext, no Ext past neutral Sling for 6 weeks, PROM goal up to 90 deg at 6 weeks and ER to neutral per protocol, No AROM until 6 weeks PT-OP-B Current Condition Start: 04/29/24 09:02 Freq: Status: Active Protocol: Document 04/29/24 09:03 NM (Rec: 04/29/24 09:55 NM [id number]) Current Condition History of Current Condition Onset Date DOS 04/25/24 Current Complaints pain, sleeping, mobility, strength History of Current Condition Pt presents with L rTSA on . He had no complications . He presents with his partner , who helped provide hx. Pt has large red bruise on the L biceps muscle belly, unsure if due to surgery or when sleeping. Pt has been wearing the sling, which his partner has been helping assist. Prior to surgery, he was doing exercises from previous PT, but he got tremendous pain in L shoulder- got referral due to rotator cuff tear. Pt reports pain has been well managed, has not been on any pain meds but using cryotherapy 4-5x/day. He has most discomfort with shoulder in sleeping (bed and recliner) . Pt also has nocturia, so has been sleeping in recliner. Partner has moved coffee table , has night lights, removed obstacles. Next follow up with Dr. Yuan: 05/10 (take off dressing and momo). Has midline neck pain as well, hard to look up. Treatment Goals Patient/Caregiver Goals return to normal 2 handed life Prior Functional Status Baseline Function- ADL's Independent Baseline Function- Mobility Independent Current Functional Impairments (Reported) Functional Limitations- ADL's dressing, grooming Functional Limitations- Mobility/Gait reaching, lifting PT-OP-C Subjective Start: 04/29/24 09:02 Freq: Status: Active Protocol: Document 07/09/24 09:48 NM (Rec: 07/09/24 10:45 NM [id number]) OP-PT Subjective Patient Comments Patient Comments Pt will see next Monday. He has been sleeping on his L shoulder, reports no pain in shoulder. He reports soreness after exercises (wall ER/IR isometrics) PT-OP-E Functional Tests Start: 04/29/24 09:02 Freq: Status: Active Protocol: Document 04/29/24 09:03 NM (Rec: 04/29/24 09:55 NM [id number]) Functional Tests Apley's Scratch Test Action 1- Left N/A Action 1- Right opposite shoulder Action 2- Left N/A Action 2- Right T3 Action 3- Left N/A Action 3- Right T9 PT-OP-F Manual Assessment Start: 04/29/24 09:02 Freq: Status: Active Protocol: Document 04/29/24 09:03 NM (Rec: 04/29/24 16:42 NM [id number]) Manual Assessments Soft Tissue Assessment Soft Tissue Mobility Assessment Increased pectoralis muscle tightness, forward head and shoulders Joint Mobility Assessment Joint Mobility Assessment Right shoulder mobility limited in all planes on contralateral side to surgery PT-OP-J Posture/Palpation/Skin Start: 04/29/24 09:02 Freq: Status: Active Protocol: Document 04/29/24 09:03 NM (Rec: 04/29/24 16:42 NM [id number]) Posture Evaluation Position Standing Head/C-Spine Posture Forward Head T-Spine Posture Increased Kyphosis Shoulder Posture (L) Rounded,(R) Rounded,(L) Forward,(R) Forward Comments Posture Comments L arm positioned in abduction sling. Demonstrates increased foward flexed posture at trunk , neck, and shoulders Palpation Assessment Location L shoulder Palpation Details Tenderness reported along incision, anterior shoulder, AC joint Skin Assessment Incisional Assessment Incision Appearance/Comments Did not remove bandage; dressings clean/dry/intact with no signs of redness or infection Other Assessments Skin Assessment Comments Pt has large red/purple bruise along L biceps and anterior shoulder below surgical site PT-OP-K Range of Motion Start: 04/29/24 09:02 Freq: Status: Active Protocol: Document 06/21/24 10:35 NM (Rec: 06/21/24 11:18 NM [id number]) Shoulder Goniometric Range of Motion Shoulder L AROM Flexion 104 External Rotation at 0 degrees Abduction 45 Comments 06/07/24: AAROM 100 deg, AROM 90 deg in supine in scaption 06/21/24: 104 deg flexion in scaption, 45 deg ER in scaption PT-OP-M Strength Start: 04/29/24 09:02 Freq: Status: Active Protocol: Document 06/21/24 10:35 NM (Rec: 06/21/24 12:50 NM [id number]) Shoulder Strength Shoulder Manual Muscle Testing Left Flexion 3 Fair External Rotation 3 Fair Comments IE: Did not assess due to surgical precautions 05/28/24: Did not assess due to surgical precautions 06/21/24: full available ROM against gravity without resistance or pain Right Flexion 3+ Fair+ Extension 3+ Fair+ Abduction (C5) 3+ Fair+ Adduction 3+ Fair+ External Rotation 3+ Fair+ Internal Rotation 3+ Fair+ PT-OP-Q Treatments Start: 04/29/24 09:02 Freq: Status: Active Protocol: Document 07/09/24 09:48 NM (Rec: 07/09/24 10:45 NM [id number]) Therapeutic Exercises Sidelying Exercises external rotation Sidelying Exercise Name AROM Side left Reps/Minutes 10 Comments Verbal cues Standing Exercises row Standing Exercise Name walkout isometric (neutral elbow positioning) Side bilateral Resistance level 1 band Reps/Minutes 10 with 2 hold Comments cued for form wall slide Standing Exercise Name step to wall, wall slide, lift off and lower without use of wall Side left Reps/Minutes 15 Comments 105 deg at wall, 110 deg at mirror w/o comp and w/ tactile cues isometrics Standing Exercise Name 1. ER walkout, 2. IR walkouts Side left Resistance 1 level 1 band Equipment Used towel roll in between body Reps/Minutes 2x5 ea Comments ER more challenging for pt Other Exercises reclined AAROM Other Exercise Name flexion in scaption plane Side left Resistance AROM Reps/Minutes 15 Comments slight discomfort over ant delt under scar Manual Therapy Treatment Consent Patient gave verbal consent for manual Yes treatment Soft Tissue Mobilization periscapulars Body Location rhomboids, LS, UT, lat Mobilization Type Cross-Friction,Rolling Intensity/Depth Superficial Body Position Sidelying Comments Monitored for pain, still has tightness of UT and lat, less at rhomboids L arm Body Location pec near axilla, scar Mobilization Type Cross-Friction,Rolling, Sustained Pressure Intensity/Depth Moderate Body Position Hooklying Comments Gentle scar mobility between sets of exercise Joint Mobilizations L 1st rib Direction caudal Grade III Body Position Sidelying Reps/Duration 15 L scapulothoracic Direction into depression and adduction Grade III Body Position Sidelying Reps/Duration 10 ea PT-OP-T Assessment and Plan Start: 04/29/24 09:02 Freq: Status: Active Protocol: Document 07/09/24 09:48 NM (Rec: 07/09/24 10:45 NM [id number]) Physical Therapy Assessment Goals 6 Impairment ADLs Impairment unable to perform ADLs Care Home Goal (LTG) Pt will report that he is able to perform all dressing and grooming per PLOF without limitation due to L shoulder or without increase in baseline pain 06/21/24: pt continues to have limitations in dressing LTG Duration 12 weeks 5 Impairment HEP Impairment not performing HEP Short Term Goal (STG) Pt will report compliance with HEP at least 3x/wk in order to maximize progression with PT 05/28/24: performs daily STG Duration 6 weeks Molded Goods Inspector Trimmer Goal (LTG) Pt will report compliance with HEP at least 3x/wk in order to demonstrate smooth transition into maintenance program LTG Duration 12 weeks 4 Impairment strength Impairment L shoulder MMT not tested due to precautions Short Term Goal (STG) Pt will improve L shoulder global strength to at least 4- /5 in order to demonstrate improved strength for ADLs/ activities 05/28/24: not tested due to precautions 06/21/24: 3/5, able to achieve ROM w/o resistance STG Duration 9 weeks PROGRESSING Molded Goods Inspector Trimmer Goal (LTG) Pt will improve L shoulder global strength to at least 4/ 5 in order to demonstrate improved strength for ADLs/ activities LTG Duration 12 weeks 3 Impairment ROM Impairment L shoulder ER Short Term Goal (STG) Pt will improve L shoulder ER AROM in scaption plane to at least 20 deg in order to demonstrate improved shoulder mobility for dressing and reaching 05/28/24: PROM ER to neutral per protocol 06/21/24: 45 deg ER in scaption AROM STG Duration 9 weeks MET Care Home Goal (LTG) Pt will improve L shoulder ER AROM in scaption plane to at least 30 deg in order to demonstrate improved shoulder mobility for dressing and reaching 06/21/24: 45 deg ER in scaption AROM LTG Duration 12 weeks 2 Impairment ROM Impairment L shoulder flexion Short Term Goal (STG) Pt will improve L shoulder flexion AROM in scaption plane to at least 90 deg in order to demonstrate improved shoulder mobility for dressing and reaching 05/28/24: PROM 90 deg 06/21/24: 104 deg flexion in scaption STG Duration 9 weeks MET Care Home Goal (LTG) Pt will improve L shoulder flexion AROM in scaption plane to at least 105 deg in order to demonstrate improved shoulder mobility for dressing and reaching LTG Duration 12 weeks 1 Impairment quickdash Impairment 46 or 79.5% impaired Short Term Goal (STG) Pt will report <60% impairment in L shoulder use per Quickdash to demonstrate improved QOL 06/21/24: 27.5% impairment STG Duration 8 weeks Molded Goods Inspector Trimmer Goal (LTG) Pt will report <60% impairment in L shoulder use per Quickdash to demonstrate improved QOL and activity tolerance 06/21/24: 27.5% impairment LTG Duration 12 weeks MET Assessment Summary Assessment Pt reports no pain during session except slight discomfort under scar at anterior shoulder with reclined L shoulder flexion AROM. Pt's L shoulder flexion 110 at end of session with visual feedback from mirror. Demonstrates upper trapezius compensation without cueing but decreased when both verbally and tactilely cued for form. Trialed resisted ER/ IR isometrics with band; however, pt requires moderate cues for correct execution. ER is more challenging than IR. Trialed row isometric walkout with shoulder remaining in neutral to maintain precautions. Pt with good form and without pain, minimal cueing only for correct execution but none to maintain precautions. Pt would benefit from skilled PT for L shoulder mobility and strengthening in order to improve ability to lift small objects, reaching, and dressing to improve ability to perform ADLs. Physical Therapy Plan Frequency and Duration Frequency of Treatment 1-2x/wk Duration of treatment (weeks) 12 Plan of Care Start Date 04/29/24 Plan of Care End Date 07/26/24 Therapeutic Interventions Therapeutic Interventions Gait Training,Home Exercise Program,Joint Mobilizations, Manual Therapy,Neuromuscular Re-education,Orthotic/ Prosthetic Management,Patient/ Caregiver Education,Self-Care/ Home Management,Sensory Integration,Soft Tissue Mobilization,Taping, Therapeutic Activities, Therapeutic Exercises Modalities Cold Pack/Ice Massage,Electric Stimulation,Hot Packs, Ultrasound Next Visit Focus/Plan Next Note Type Progress Note Next Visit Plan AROM- supine w/ 1#> reclined, review inderjit walkout ER/IR, wall slide, row walkout, stair slides scapular mobilization, reclined/supine shoulder scaption, trial row to neutral /side of body avoiding extension AROM Review HEP
--- NOTE | 2024-07-12 13:12 | PT.OTN ---
Current Diagnoses Primary osteoarthritis, left shoulder (07/12/24) Stiffness of left shoulder, not elsewhere classified (07/12/24) Weakness (07/12/24) Physical Therapy Treatment Note PT-OP-A Visit Information Start: 04/29/24 09:02 Freq: Status: Active Protocol: Document 07/12/24 10:32 NM (Rec: 07/12/24 11:17 NM [id number]) Out-Patient Physical Therapy Visit Information Visit Information Visit Type Progress Note Visit Note 15 visits, DOS 04/25/24 Visit Start Time 10:33 Visit Stop Time 11:13 Visit Number 17 Evaluation Information Evaluation Date 04/29/24 Precautions Precautions 4 weeks: 05/23, 6 weeks: 06/06, 8 weeks: 06/20, 10 weeks: 07/04, 12 weeks: 07/18 Reverse TSA precautions (DOS 04/25/24): no IR/Ext, no Ext past neutral Sling for 6 weeks, PROM goal up to 90 deg at 6 weeks and ER to neutral per protocol, No AROM until 6 weeks PT-OP-B Current Condition Start: 04/29/24 09:02 Freq: Status: Active Protocol: Document 04/29/24 09:03 NM (Rec: 04/29/24 09:55 NM [id number]) Current Condition History of Current Condition Onset Date DOS 04/25/24 Current Complaints pain, sleeping, mobility, strength History of Current Condition Pt presents with L rTSA on . He had no complications . He presents with his partner , who helped provide hx. Pt has large red bruise on the L biceps muscle belly, unsure if due to surgery or when sleeping. Pt has been wearing the sling, which his partner has been helping assist. Prior to surgery, he was doing exercises from previous PT, but he got tremendous pain in L shoulder- got referral due to rotator cuff tear. Pt reports pain has been well managed, has not been on any pain meds but using cryotherapy 4-5x/day. He has most discomfort with shoulder in sleeping (bed and recliner) . Pt also has nocturia, so has been sleeping in recliner. Partner has moved coffee table , has night lights, removed obstacles. Next follow up with Dr. Yuan: 05/10 (take off dressing and momo). Has midline neck pain as well, hard to look up. Treatment Goals Patient/Caregiver Goals return to normal 2 handed life Prior Functional Status Baseline Function- ADL's Independent Baseline Function- Mobility Independent Current Functional Impairments (Reported) Functional Limitations- ADL's dressing, grooming Functional Limitations- Mobility/Gait reaching, lifting PT-OP-C Subjective Start: 04/29/24 09:02 Freq: Status: Active Protocol: Document 07/12/24 10:32 NM (Rec: 07/12/24 12:53 NM [id number]) OP-PT Subjective Patient Comments Patient Comments Pt reports that he is doing well. Currently no L shoulder pain. No L shoulder pain after last session. Prn shoulder pain after sleeping on L shoulder but states resolves within minutes. States compliant with HEP and brought HEP for review. Has only be doing most recently issued HEP . Pleased with progress but concerned about 2x/wk due to insurance visits. Wants to move down to 1x/wk if appropriate but willing to go back to 2x/wk if regresses. Patient Reported Progress Improving PT-OP-E Functional Tests Start: 04/29/24 09:02 Freq: Status: Active Protocol: Document 04/29/24 09:03 NM (Rec: 04/29/24 09:55 NM [id number]) Functional Tests Apley's Scratch Test Action 1- Left N/A Action 1- Right opposite shoulder Action 2- Left N/A Action 2- Right T3 Action 3- Left N/A Action 3- Right T9 PT-OP-F Manual Assessment Start: 04/29/24 09:02 Freq: Status: Active Protocol: Document 04/29/24 09:03 NM (Rec: 04/29/24 16:42 NM [id number]) Manual Assessments Soft Tissue Assessment Soft Tissue Mobility Assessment Increased pectoralis muscle tightness, forward head and shoulders Joint Mobility Assessment Joint Mobility Assessment Right shoulder mobility limited in all planes on contralateral side to surgery PT-OP-J Posture/Palpation/Skin Start: 04/29/24 09:02 Freq: Status: Active Protocol: Document 04/29/24 09:03 NM (Rec: 04/29/24 16:42 NM [id number]) Posture Evaluation Position Standing Head/C-Spine Posture Forward Head T-Spine Posture Increased Kyphosis Shoulder Posture (L) Rounded,(R) Rounded,(L) Forward,(R) Forward Comments Posture Comments L arm positioned in abduction sling. Demonstrates increased foward flexed posture at trunk , neck, and shoulders Palpation Assessment Location L shoulder Palpation Details Tenderness reported along incision, anterior shoulder, AC joint Skin Assessment Incisional Assessment Incision Appearance/Comments Did not remove bandage; dressings clean/dry/intact with no signs of redness or infection Other Assessments Skin Assessment Comments Pt has large red/purple bruise along L biceps and anterior shoulder below surgical site PT-OP-K Range of Motion Start: 04/29/24 09:02 Freq: Status: Active Protocol: Document 07/12/24 10:32 NM (Rec: 07/12/24 11:17 NM [id number]) Shoulder Goniometric Range of Motion Shoulder L AROM Flexion 105 External Rotation at 0 degrees Abduction 50 Comments 06/07/24: AAROM 100 deg, AROM 90 deg in supine in scaption 06/21/24: 104 deg flexion in scaption, 45 deg ER in scaption 07/12/24: 105 deg fwd flexion in scaption (110 deg end of session), 50 deg ER in scaption; pain free for all PT-OP-M Strength Start: 04/29/24 09:02 Freq: Status: Active Protocol: Document 07/12/24 10:32 NM (Rec: 07/12/24 11:17 NM [id number]) Shoulder Strength Shoulder Manual Muscle Testing Left Flexion 4- Good- External Rotation 4- Good- Comments IE: Did not assess due to surgical precautions 05/28/24: Did not assess due to surgical precautions 06/21/24: full available ROM against gravity without resistance or pain 07/12/24: 4-/5 for all; pain free; able to perform shoulder flex w/ 1# db in supine PT-OP-Q Treatments Start: 04/29/24 09:02 Freq: Status: Active Protocol: Document 07/12/24 10:32 NM (Rec: 07/12/24 11:17 NM [id number]) Therapeutic Exercises Supine Exercises shoulder flexion Supine Exercise Name 1. AROM, 2. trialed with 1# db Side left Reps/Minutes 1. 10, 2. 5 Comments 120 deg flexion in scaption w/ o comp or pain, 110 deg w/ db Sidelying Exercises external rotation Sidelying Exercise Name AROM Side left Equipment Used towel roll for scaption Reps/Minutes 10 Comments Verbal cues to limit trunk rot , for scap setting Sitting Exercises reclined shoulder flexion Sitting Exercise Name seated (not reclined) Side left Resistance AROM Reps/Minutes 10 Comments 110 deg flex in scaption; prn cues to limit trunk comp Standing Exercises row Standing Exercise Name walkout isometric (neutral elbow positioning, no shldr ext) Side bilateral Resistance level 1 band Reps/Minutes 15 with 2 hold Comments cued for form, limited scap ROM; prn verbal cues form wall slide Standing Exercise Name step to wall, wall slide, lift off and lower without use of wall Side left Reps/Minutes 15 Comments 105 deg at wall, 110 deg at mirror w/o comp and w/ tactile cues AROM Standing Exercise Name HEP: L shoulder flexion Side left Equipment Used mirror for visual cues Reps/Minutes 10 Comments improved w/ reps, no UT comp; 110 deg Manual Therapy Treatment Consent Patient gave verbal consent for manual Yes treatment Soft Tissue Mobilization periscapulars Body Location rhomboids, LS, UT, lat Mobilization Type Cross-Friction,Rolling Intensity/Depth Superficial Body Position Sidelying Comments Monitored for pain, still has tightness of UT and lat, less at rhomboids, reduced with mobilization L arm Body Location pec near axilla Mobilization Type Cross-Friction,Rolling, Sustained Pressure Intensity/Depth Moderate Body Position Hooklying Comments increased pec tightness in axilla, reduced with mobilization Joint Mobilizations L GHJ Direction post Grade II Body Position Supine Reps/Duration 10 L 1st rib Direction caudal Grade III Body Position Sidelying Reps/Duration 15 L scapulothoracic Direction into depression and adduction Grade III Body Position Sidelying Reps/Duration 10 ea PT-OP-T Assessment and Plan Start: 04/29/24 09:02 Freq: Status: Active Protocol: Document 07/12/24 10:32 NM (Rec: 07/12/24 11:17 NM [id number]) Physical Therapy Assessment Goals 6 Impairment ADLs Impairment unable to perform ADLs Magazine Editor Goal (LTG) Pt will report that he is able to perform all dressing and grooming per PLOF without limitation due to L shoulder or without increase in baseline pain 06/21/24: pt continues to have limitations in dressing 07/12/24: pt reports limitations with drying back and donning/ doffing jacket; no other limitations with dressing LTG Duration 12 weeks PARTIALLY MET 5 Impairment HEP Impairment not performing HEP Short Term Goal (STG) Pt will report compliance with HEP at least 3x/wk in order to maximize progression with PT 05/28/24: performs daily STG Duration 6 weeks Residential Goal (LTG) Pt will report compliance with HEP at least 3x/wk in order to demonstrate smooth transition into maintenance program 07/12/24: pt performing HEP as prescribed at least 3x/wk LTG Duration 12 weeks MET 4 Impairment strength Impairment L shoulder MMT not tested due to precautions Short Term Goal (STG) Pt will improve L shoulder global strength to at least 4- /5 in order to demonstrate improved strength for ADLs/ activities 05/28/24: not tested due to precautions 06/21/24: 3/5, able to achieve ROM w/o resistance 07/12/24: 4-/5 for flex and ER w /o pain STG Duration 9 weeks MET Residential Goal (LTG) Pt will improve L shoulder global strength to at least 4/ 5 in order to demonstrate improved strength for ADLs/ activities 07/12/24: 4-/5 for flex and ER w /o pain LTG Duration 12 weeks PROGRESSING 3 Impairment ROM Impairment L shoulder ER Short Term Goal (STG) Pt will improve L shoulder ER AROM in scaption plane to at least 20 deg in order to demonstrate improved shoulder mobility for dressing and reaching 05/28/24: PROM ER to neutral per protocol 06/21/24: 45 deg ER in scaption AROM STG Duration 9 weeks MET Residential Goal (LTG) Pt will improve L shoulder ER AROM in scaption plane to at least 30 deg in order to demonstrate improved shoulder mobility for dressing and reaching 06/21/24: 45 deg ER in scaption AROM 07/12/24: 50 deg ER in scaption plane LTG Duration 12 weeks MET 2 Impairment ROM Impairment L shoulder flexion Short Term Goal (STG) Pt will improve L shoulder flexion AROM in scaption plane to at least 90 deg in order to demonstrate improved shoulder mobility for dressing and reaching 05/28/24: PROM 90 deg 06/21/24: 104 deg flexion in scaption STG Duration 9 weeks MET Residential Goal (LTG) Pt will improve L shoulder flexion AROM in scaption plane to at least 105 deg in order to demonstrate improved shoulder mobility for dressing and reaching 07/12/24: 105 deg flexion in scaption plane LTG Duration 12 weeks MET 1 Impairment quickdash Impairment 46 or 79.5% impaired Short Term Goal (STG) Pt will report <60% impairment in L shoulder use per Quickdash to demonstrate improved QOL 06/21/24: 27.5% impairment STG Duration 8 weeks Residential Goal (LTG) Pt will report <60% impairment in L shoulder use per Quickdash to demonstrate improved QOL and activity tolerance 06/21/24: 27.5% impairment LTG Duration 12 weeks MET Progress Towards Goals Progress Towards Goals Progressing Toward Goals,Goals Met Progress Comments Pt progressing with strength and ADL goals; all other goals met and maintained Assessment Summary Assessment Pt tolerated session well. Currently 11 weeks post op. Session emphasis on HEP review and initiating gentle strength training. Maintains 105 to 110 deg L shoulder flexion scaption, improved with visual and light verbal/ tactile feedback. Continued with sidelying ER; pt requires cues for control to maintain pain free AROM and to set scapula to prevent anterior humeral positioning and to facilitate motion within scapular plane. Trialed 1# shoulder flexion in supine, which is fatiguing for pt but not painful. Pt continues to have difficulty with scapular control in standing, especially into retraction. Able to perform row isometric while maintaining precautions and without pain/good form; however, has tendency to extend trunk vs retract scapula, minimally changed with verbal/tactile cues. Pt would benefit from skilled PT for L shoulder mobility and strengthening per protocol in order to maximize independence with reaching, lifting, and dressing ADLs. Physical Therapy Plan Frequency and Duration Frequency of Treatment 1-2x/wk Duration of treatment (weeks) 12 Plan of Care Start Date 07/12/24 Plan of Care End Date 10/18/24 Therapeutic Interventions Therapeutic Interventions Gait Training,Home Exercise Program,Joint Mobilizations, Manual Therapy,Neuromuscular Re-education,Orthotic/ Prosthetic Management,Patient/ Caregiver Education,Self-Care/ Home Management,Sensory Integration,Soft Tissue Mobilization,Taping, Therapeutic Activities, Therapeutic Exercises Modalities Cold Pack/Ice Massage,Electric Stimulation,Hot Packs, Ultrasound Next Visit Focus/Plan Next Note Type Treatment Note Next Visit Plan Update HEP ea session since 1x /wk AROM- supine w/ 1#> reclined ( Add HEP supine) and progress up to standing, review inderjit walkout ER/IR w/ band (add HEP ), wall slide w/ band, miniband flexion in supine, row walkout w/ band (add HEP), stair slides as needed, trial 1# with sidelying ER if pain free Manual: scapular mobility, GHJ mob if neded
--- NOTE | 2024-07-12 13:12 | PT.OPPOC ---
Physical, Occupational & Speech Therapy At [facility] Current Diagnoses Primary osteoarthritis, left shoulder (07/12/24) Stiffness of left shoulder, not elsewhere classified (07/12/24) Weakness (07/12/24) Visit Care Team Role Provider Type Obi Horton MD Family Provider Physician Primary Care Provider Specialty: Internal Medicine Address: [address] [place] [address], [id number] Email: [email or web address] Tomas Yuan MD Attending Provider Physician Referring Provider Specialty: Orthopedics Orthopedic Surgery Address: [address] [place] [address], [id number] Email: [email or web address] Plan Of Care PT-OP-B Current Condition Start: 04/29/24 09:02 Freq: Status: Active Protocol: Document 04/29/24 09:03 NM (Rec: 04/29/24 09:55 NM [id number]) Current Condition History of Current Condition Onset Date DOS 04/25/24 Current Complaints pain, sleeping, mobility, strength History of Current Condition Pt presents with L rTSA on . He had no complications . He presents with his partner , who helped provide hx. Pt has large red bruise on the L biceps muscle belly, unsure if due to surgery or when sleeping. Pt has been wearing the sling, which his partner has been helping assist. Prior to surgery, he was doing exercises from previous PT, but he got tremendous pain in L shoulder- got referral due to rotator cuff tear. Pt reports pain has been well managed, has not been on any pain meds but using cryotherapy 4-5x/day. He has most discomfort with shoulder in sleeping (bed and recliner) . Pt also has nocturia, so has been sleeping in recliner. Partner has moved coffee table , has night lights, removed obstacles. Next follow up with Dr. Yuan: 05/10 (take off dressing and momo). Has midline neck pain as well, hard to look up. Treatment Goals Patient/Caregiver Goals return to normal 2 handed life Prior Functional Status Baseline Function- ADL's Independent Baseline Function- Mobility Independent Current Functional Impairments (Reported) Functional Limitations- ADL's dressing, grooming Functional Limitations- Mobility/Gait reaching, lifting PT-OP-T Assessment and Plan Start: 04/29/24 09:02 Freq: Status: Active Protocol: Document 07/12/24 10:32 NM (Rec: 07/12/24 11:17 NM [id number]) Physical Therapy Assessment Goals 6 Impairment ADLs Impairment unable to perform ADLs Mcc Goal (LTG) Pt will report that he is able to perform all dressing and grooming per PLOF without limitation due to L shoulder or without increase in baseline pain 06/21/24: pt continues to have limitations in dressing 07/12/24: pt reports limitations with drying back and donning/ doffing jacket; no other limitations with dressing LTG Duration 12 weeks PARTIALLY MET 5 Impairment HEP Impairment not performing HEP Short Term Goal (STG) Pt will report compliance with HEP at least 3x/wk in order to maximize progression with PT 05/28/24: performs daily STG Duration 6 weeks Channel Sales Manager Goal (LTG) Pt will report compliance with HEP at least 3x/wk in order to demonstrate smooth transition into maintenance program 07/12/24: pt performing HEP as prescribed at least 3x/wk LTG Duration 12 weeks MET 4 Impairment strength Impairment L shoulder MMT not tested due to precautions Short Term Goal (STG) Pt will improve L shoulder global strength to at least 4- /5 in order to demonstrate improved strength for ADLs/ activities 05/28/24: not tested due to precautions 06/21/24: 3/5, able to achieve ROM w/o resistance 07/12/24: 4-/5 for flex and ER w /o pain STG Duration 9 weeks MET Mcc Goal (LTG) Pt will improve L shoulder global strength to at least 4/ 5 in order to demonstrate improved strength for ADLs/ activities 07/12/24: 4-/5 for flex and ER w /o pain LTG Duration 12 weeks PROGRESSING 3 Impairment ROM Impairment L shoulder ER Short Term Goal (STG) Pt will improve L shoulder ER AROM in scaption plane to at least 20 deg in order to demonstrate improved shoulder mobility for dressing and reaching 05/28/24: PROM ER to neutral per protocol 06/21/24: 45 deg ER in scaption AROM STG Duration 9 weeks MET Mcc Goal (LTG) Pt will improve L shoulder ER AROM in scaption plane to at least 30 deg in order to demonstrate improved shoulder mobility for dressing and reaching 06/21/24: 45 deg ER in scaption AROM 07/12/24: 50 deg ER in scaption plane LTG Duration 12 weeks MET 2 Impairment ROM Impairment L shoulder flexion Short Term Goal (STG) Pt will improve L shoulder flexion AROM in scaption plane to at least 90 deg in order to demonstrate improved shoulder mobility for dressing and reaching 05/28/24: PROM 90 deg 06/21/24: 104 deg flexion in scaption STG Duration 9 weeks MET Channel Sales Manager Goal (LTG) Pt will improve L shoulder flexion AROM in scaption plane to at least 105 deg in order to demonstrate improved shoulder mobility for dressing and reaching 07/12/24: 105 deg flexion in scaption plane LTG Duration 12 weeks MET 1 Impairment quickdash Impairment 46 or 79.5% impaired Short Term Goal (STG) Pt will report <60% impairment in L shoulder use per Quickdash to demonstrate improved QOL 06/21/24: 27.5% impairment STG Duration 8 weeks Mcc Goal (LTG) Pt will report <60% impairment in L shoulder use per Quickdash to demonstrate improved QOL and activity tolerance 06/21/24: 27.5% impairment LTG Duration 12 weeks MET Progress Towards Goals Progress Towards Goals Progressing Toward Goals,Goals Met Progress Comments Pt progressing with strength and ADL goals; all other goals met and maintained Assessment Summary Assessment Pt has been seen x16 visits since initial evaluation in April 2024 s/p L rTSA. Pt is currently 11.5 weeks post op. His pain is well managed, and pt typically does not have pain during exercise or at rest. Pt's L shoulder AROM is improved, at least 105 deg flexion in standing and 50 deg ER in scaption. His strength is progressing, and pt is now beginning lifting 1# in lawnchair progression. Pt has been compliant with precautions and HEP. He is progressing well toward PT goals, meeting several. Per protocol, pt is now beginning strengthening phase. He still reports limitations with dressing, lifting, and reaching ADLs. Due to insurance limitations, pt will transition down to 1x/wk for PT as long as he continues to progress well. Pt would benefit from skilled PT for L shoulder mobility and strengthening per protocol in order to maximize independence with reaching, lifting, and dressing ADLs. Physical Therapy Plan Frequency and Duration Frequency of Treatment 1-2x/wk Duration of treatment (weeks) 12 Plan of Care Start Date 07/12/24 Plan of Care End Date 10/18/24 Therapeutic Interventions Therapeutic Interventions Gait Training,Home Exercise Program,Joint Mobilizations, Manual Therapy,Neuromuscular Re-education,Orthotic/ Prosthetic Management,Patient/ Caregiver Education,Self-Care/ Home Management,Sensory Integration,Soft Tissue Mobilization,Taping, Therapeutic Activities, Therapeutic Exercises Modalities Cold Pack/Ice Massage,Electric Stimulation,Hot Packs, Ultrasound Next Visit Focus/Plan Next Note Type Treatment Note Next Visit Plan Update HEP ea session since 1x /wk AROM- supine w/ 1#> reclined ( Add HEP supine) and progress up to standing, review inderjit walkout ER/IR w/ band (add HEP ), wall slide w/ band, miniband flexion in supine, row walkout w/ band (add HEP), stair slides as needed, trial 1# with sidelying ER if pain free Manual: scapular mobility, GHJ mob if neded Plan of Care Dates Plan of Care Start Date 07/12/24 Plan of Care End Date 10/18/24 Electronically Signed by: Matilde Jay, PT 07/12/24 2000 If you are in agreement with this Plan of Care, please return a signed and dated copy. I have reviewed this Plan of Care and certify that the skilled therapy services above are required to meet the patient?s needs. Physician Signature Date Printed Name and Credentials Clinical Instructor Signature Printed Name and Credentials
--- NOTE | 2024-07-19 12:53 | PT.OTN ---
Current Diagnoses Primary osteoarthritis, left shoulder (07/19/24) Stiffness of left shoulder, not elsewhere classified (07/19/24) Weakness (07/19/24) Physical Therapy Treatment Note PT-OP-A Visit Information Start: 04/29/24 09:02 Freq: Status: Active Protocol: Document 07/19/24 08:51 AB (Rec: 07/19/24 12:52 AB [id number]) Out-Patient Physical Therapy Visit Information Visit Information Visit Type Treatment Note Visit Note 15 visits, DOS 04/25/24 Access code [email or web address] Visit Start Time 10:35 Visit Stop Time 11:19 Visit Number 18 Number of CASHIER OR CHECKER STOCK CLERK Visits 1 Evaluation Information Evaluation Date 04/29/24 Precautions Precautions 4 weeks: 05/23, 6 weeks: 06/06, 8 weeks: 06/20, 10 weeks: 07/04, 12 weeks: 07/18 Reverse TSA precautions (DOS 04/25/24): no IR/Ext, no Ext past neutral Sling for 6 weeks, PROM goal up to 90 deg at 6 weeks and ER to neutral per protocol, No AROM until 6 weeks PT-OP-B Current Condition Start: 04/29/24 09:02 Freq: Status: Active Protocol: Document 04/29/24 09:03 NM (Rec: 04/29/24 09:55 NM [id number]) Current Condition History of Current Condition Onset Date DOS 04/25/24 Current Complaints pain, sleeping, mobility, strength History of Current Condition Pt presents with L rTSA on . He had no complications . He presents with his partner , who helped provide hx. Pt has large red bruise on the L biceps muscle belly, unsure if due to surgery or when sleeping. Pt has been wearing the sling, which his partner has been helping assist. Prior to surgery, he was doing exercises from previous PT, but he got tremendous pain in L shoulder- got referral due to rotator cuff tear. Pt reports pain has been well managed, has not been on any pain meds but using cryotherapy 4-5x/day. He has most discomfort with shoulder in sleeping (bed and recliner) . Pt also has nocturia, so has been sleeping in recliner. Partner has moved coffee table , has night lights, removed obstacles. Next follow up with Dr. Yuan: 7/5 (take off dressing and momo). Has midline neck pain as well, hard to look up. Treatment Goals Patient/Caregiver Goals return to normal 2 handed life Prior Functional Status Baseline Function- ADL's Independent Baseline Function- Mobility Independent Current Functional Impairments (Reported) Functional Limitations- ADL's dressing, grooming Functional Limitations- Mobility/Gait reaching, lifting PT-OP-C Subjective Start: 04/29/24 09:02 Freq: Status: Active Protocol: Document 07/19/24 08:51 AB (Rec: 07/19/24 12:52 AB [id number]) OP-PT Subjective Patient Comments Patient Comments Patient and Partner report MD said no restrictions, use common sense, ie if it hurts don't do it. Patient reports the MD said to build stretch. 110 deg left PT-OP-E Functional Tests Start: 04/29/24 09:02 Freq: Status: Active Protocol: Document 04/29/24 09:03 NM (Rec: 04/29/24 09:55 NM [id number]) Functional Tests Apley's Scratch Test Action 1- Left N/A Action 1- Right opposite shoulder Action 2- Left N/A Action 2- Right T3 Action 3- Left N/A Action 3- Right T9 PT-OP-F Manual Assessment Start: 04/29/24 09:02 Freq: Status: Active Protocol: Document 04/29/24 09:03 NM (Rec: 04/29/24 16:42 NM [id number]) Manual Assessments Soft Tissue Assessment Soft Tissue Mobility Assessment Increased pectoralis muscle tightness, forward head and shoulders Joint Mobility Assessment Joint Mobility Assessment Right shoulder mobility limited in all planes on contralateral side to surgery PT-OP-J Posture/Palpation/Skin Start: 04/29/24 09:02 Freq: Status: Active Protocol: Document 04/29/24 09:03 NM (Rec: 04/29/24 16:42 NM [id number]) Posture Evaluation Position Standing Head/C-Spine Posture Forward Head T-Spine Posture Increased Kyphosis Shoulder Posture (L) Rounded,(R) Rounded,(L) Forward,(R) Forward Comments Posture Comments L arm positioned in abduction sling. Demonstrates increased foward flexed posture at trunk , neck, and shoulders Palpation Assessment Location L shoulder Palpation Details Tenderness reported along incision, anterior shoulder, AC joint Skin Assessment Incisional Assessment Incision Appearance/Comments Did not remove bandage; dressings clean/dry/intact with no signs of redness or infection Other Assessments Skin Assessment Comments Pt has large red/purple bruise along L biceps and anterior shoulder below surgical site PT-OP-K Range of Motion Start: 04/29/24 09:02 Freq: Status: Active Protocol: Document 07/12/24 10:32 NM (Rec: 07/12/24 11:17 NM [id number]) Shoulder Goniometric Range of Motion Shoulder L AROM Flexion 105 External Rotation at 0 degrees Abduction 50 Comments 06/07/24: AAROM 100 deg, AROM 90 deg in supine in scaption 06/21/24: 104 deg flexion in scaption, 45 deg ER in scaption 07/12/24: 105 deg fwd flexion in scaption (110 deg end of session), 50 deg ER in scaption; pain free for all PT-OP-M Strength Start: 04/29/24 09:02 Freq: Status: Active Protocol: Document 07/12/24 10:32 NM (Rec: 07/12/24 11:17 NM [id number]) Shoulder Strength Shoulder Manual Muscle Testing Left Flexion 4- Good- External Rotation 4- Good- Comments IE: Did not assess due to surgical precautions 05/28/24: Did not assess due to surgical precautions 06/21/24: full available ROM against gravity without resistance or pain 07/12/24: 4-/5 for all; pain free; able to perform shoulder flex w/ 1# db in supine PT-OP-Q Treatments Start: 04/29/24 09:02 Freq: Status: Active Protocol: Document 07/19/24 08:51 AB (Rec: 07/19/24 12:52 AB [id number]) Therapeutic Exercises Supine Exercises shoulder flexion Supine Exercise Name HEP Side bilateral Resistance 1 lb Reps/Minutes X10 Sidelying Exercises external rotation Sidelying Exercise Name AROM HEP Side left Resistance 1lb Equipment Used towel roll for scaption Reps/Minutes X15 with 1 lb X 15 without weight Comments VC to hold end rom Standing Exercises row Standing Exercise Name walkout isometric (neutral elbow positioning, no shldr ext) HEP Side bilateral Resistance level 1 band Reps/Minutes X15 Comments verbal and visual cues isometrics Standing Exercise Name HEP1. ER walkout, 2. IR walkouts Side left Resistance 1 level 1 band Equipment Used towel roll in between body Reps/Minutes X10 and X 5 each Comments ER more challenging for pt Other Exercises reclined AAROM Other Exercise Name reclined flexion HEP Side bilateral Resistance 1 lb Reps/Minutes X10 Comments VC for 2 sec hold Manual Therapy Treatment Soft Tissue Mobilization periscapulars Body Location rhomboids, LS, UT, lat Mobilization Type Cross-Friction,Rolling Intensity/Depth Superficial Body Position Sidelying L arm Body Location pec near axilla Mobilization Type Cross-Friction,Rolling, Sustained Pressure Intensity/Depth Moderate Body Position Hooklying Joint Mobilizations L scapulothoracic Direction into depression and adduction Grade III Body Position Sidelying Reps/Duration 10 ea Manual Techniques scapular isometrics Type L retraction, adduction Body Position Sidelying Reps/Duration X10 each sidelying X10 scap retract seated PT-OP-T Assessment and Plan Start: 04/29/24 09:02 Freq: Status: Active Protocol: Document 07/19/24 08:51 AB (Rec: 07/19/24 12:52 AB [id number]) Physical Therapy Assessment Other Concerns Barriers to Rehabilitation Pt has limitations in R shoulder AROM/strength as well , including hx of arthritis. Goals 6 Impairment ADLs Impairment unable to perform ADLs Insurance Manager Goal (LTG) Pt will report that he is able to perform all dressing and grooming per PLOF without limitation due to L shoulder or without increase in baseline pain 06/21/24: pt continues to have limitations in dressing 07/12/24: pt reports limitations with drying back and donning/ doffing jacket; no other limitations with dressing LTG Duration 12 weeks PARTIALLY MET 5 Impairment HEP Impairment not performing HEP Short Term Goal (STG) Pt will report compliance with HEP at least 3x/wk in order to maximize progression with PT 05/28/24: performs daily STG Duration 6 weeks Insurance Manager Goal (LTG) Pt will report compliance with HEP at least 3x/wk in order to demonstrate smooth transition into maintenance program 07/12/24: pt performing HEP as prescribed at least 3x/wk LTG Duration 12 weeks MET 4 Impairment strength Impairment L shoulder MMT not tested due to precautions Short Term Goal (STG) Pt will improve L shoulder global strength to at least 4- /5 in order to demonstrate improved strength for ADLs/ activities 05/28/24: not tested due to precautions 06/21/24: 3/5, able to achieve ROM w/o resistance 07/12/24: 4-/5 for flex and ER w /o pain STG Duration 9 weeks MET Insurance Manager Goal (LTG) Pt will improve L shoulder global strength to at least 4/ 5 in order to demonstrate improved strength for ADLs/ activities 07/12/24: 4-/5 for flex and ER w /o pain LTG Duration 12 weeks PROGRESSING 3 Impairment ROM Impairment L shoulder ER Short Term Goal (STG) Pt will improve L shoulder ER AROM in scaption plane to at least 20 deg in order to demonstrate improved shoulder mobility for dressing and reaching 05/28/24: PROM ER to neutral per protocol 06/21/24: 45 deg ER in scaption AROM STG Duration 9 weeks MET Insurance Manager Goal (LTG) Pt will improve L shoulder ER AROM in scaption plane to at least 30 deg in order to demonstrate improved shoulder mobility for dressing and reaching 06/21/24: 45 deg ER in scaption AROM 07/12/24: 50 deg ER in scaption plane LTG Duration 12 weeks MET 2 Impairment ROM Impairment L shoulder flexion Short Term Goal (STG) Pt will improve L shoulder flexion AROM in scaption plane to at least 90 deg in order to demonstrate improved shoulder mobility for dressing and reaching 05/28/24: PROM 90 deg 06/21/24: 104 deg flexion in scaption STG Duration 9 weeks MET Insurance Manager Goal (LTG) Pt will improve L shoulder flexion AROM in scaption plane to at least 105 deg in order to demonstrate improved shoulder mobility for dressing and reaching 07/12/24: 105 deg flexion in scaption plane LTG Duration 12 weeks MET 1 Impairment quickdash Impairment 46 or 79.5% impaired Short Term Goal (STG) Pt will report <60% impairment in L shoulder use per Quickdash to demonstrate improved QOL 06/21/24: 27.5% impairment STG Duration 8 weeks Mcc Goal (LTG) Pt will report <60% impairment in L shoulder use per Quickdash to demonstrate improved QOL and activity tolerance 06/21/24: 27.5% impairment LTG Duration 12 weeks MET Assessment Summary Assessment 112 deg scaption left shoulder end of session, rates pain 3/ 10 end of session, commenting it often hurts more than this in the morning after sleeping on it. Physical Therapy Plan Frequency and Duration Frequency of Treatment 1-2x/wk Duration of treatment (weeks) 12 Plan of Care Start Date 07/12/24 Plan of Care End Date 10/18/24 Next Visit Focus/Plan Next Note Type Treatment Note Next Visit Plan Update HEP ea session since 1x /wk progress up to standing, , wall slide w/ band, miniband flexion in supine, row walkout w/ band (add HEP), stair slides as needed, Manual: scapular mobility, GHJ mob if neded
--- NOTE | 2024-07-26 12:16 | PT.OTN ---
Current Diagnoses Primary osteoarthritis, left shoulder (07/26/24) Stiffness of left shoulder, not elsewhere classified (07/26/24) Weakness (07/26/24) Physical Therapy Treatment Note PT-OP-A Visit Information Start: 04/29/24 09:02 Freq: Status: Active Protocol: Document 07/19/24 08:51 AB (Rec: 07/19/24 12:52 AB [id number]) Out-Patient Physical Therapy Visit Information Visit Information Visit Type Treatment Note Visit Note 15 visits, DOS 04/25/24 Access code [email or web address] Visit Start Time 10:35 Visit Stop Time 11:19 Visit Number 18 Number of VENEER TAPING MACHINE OFFBEARER Visits 1 Evaluation Information Evaluation Date 04/29/24 Precautions Precautions 4 weeks: 05/23, 6 weeks: 06/06, 8 weeks: 06/20, 10 weeks: 07/04, 12 weeks: 07/18 Reverse TSA precautions (DOS 04/25/24): no IR/Ext, no Ext past neutral Sling for 6 weeks, PROM goal up to 90 deg at 6 weeks and ER to neutral per protocol, No AROM until 6 weeks PT-OP-B Current Condition Start: 04/29/24 09:02 Freq: Status: Active Protocol: Document 04/29/24 09:03 NM (Rec: 04/29/24 09:55 NM [id number]) Current Condition History of Current Condition Onset Date DOS 04/25/24 Current Complaints pain, sleeping, mobility, strength History of Current Condition Pt presents with L rTSA on . He had no complications . He presents with his partner , who helped provide hx. Pt has large red bruise on the L biceps muscle belly, unsure if due to surgery or when sleeping. Pt has been wearing the sling, which his partner has been helping assist. Prior to surgery, he was doing exercises from previous PT, but he got tremendous pain in L shoulder- got referral due to rotator cuff tear. Pt reports pain has been well managed, has not been on any pain meds but using cryotherapy 4-5x/day. He has most discomfort with shoulder in sleeping (bed and recliner) . Pt also has nocturia, so has been sleeping in recliner. Partner has moved coffee table , has night lights, removed obstacles. Next follow up with Dr. Yuan: 7/5 (take off dressing and momo). Has midline neck pain as well, hard to look up. Treatment Goals Patient/Caregiver Goals return to normal 2 handed life Prior Functional Status Baseline Function- ADL's Independent Baseline Function- Mobility Independent Current Functional Impairments (Reported) Functional Limitations- ADL's dressing, grooming Functional Limitations- Mobility/Gait reaching, lifting PT-OP-C Subjective Start: 04/29/24 09:02 Freq: Status: Active Protocol: Document 07/19/24 08:51 AB (Rec: 07/19/24 12:52 AB [id number]) OP-PT Subjective Patient Comments Patient Comments Patient and Partner report MD said no restrictions, use common sense, ie if it hurts don't do it. Patient reports the MD said to build stretch. 110 deg left PT-OP-E Functional Tests Start: 04/29/24 09:02 Freq: Status: Active Protocol: Document 04/29/24 09:03 NM (Rec: 04/29/24 09:55 NM [id number]) Functional Tests Apley's Scratch Test Action 1- Left N/A Action 1- Right opposite shoulder Action 2- Left N/A Action 2- Right T3 Action 3- Left N/A Action 3- Right T9 PT-OP-F Manual Assessment Start: 04/29/24 09:02 Freq: Status: Active Protocol: Document 04/29/24 09:03 NM (Rec: 04/29/24 16:42 NM [id number]) Manual Assessments Soft Tissue Assessment Soft Tissue Mobility Assessment Increased pectoralis muscle tightness, forward head and shoulders Joint Mobility Assessment Joint Mobility Assessment Right shoulder mobility limited in all planes on contralateral side to surgery PT-OP-J Posture/Palpation/Skin Start: 04/29/24 09:02 Freq: Status: Active Protocol: Document 04/29/24 09:03 NM (Rec: 04/29/24 16:42 NM [id number]) Posture Evaluation Position Standing Head/C-Spine Posture Forward Head T-Spine Posture Increased Kyphosis Shoulder Posture (L) Rounded,(R) Rounded,(L) Forward,(R) Forward Comments Posture Comments L arm positioned in abduction sling. Demonstrates increased foward flexed posture at trunk , neck, and shoulders Palpation Assessment Location L shoulder Palpation Details Tenderness reported along incision, anterior shoulder, AC joint Skin Assessment Incisional Assessment Incision Appearance/Comments Did not remove bandage; dressings clean/dry/intact with no signs of redness or infection Other Assessments Skin Assessment Comments Pt has large red/purple bruise along L biceps and anterior shoulder below surgical site PT-OP-K Range of Motion Start: 04/29/24 09:02 Freq: Status: Active Protocol: Document 07/12/24 10:32 NM (Rec: 07/12/24 11:17 NM [id number]) Shoulder Goniometric Range of Motion Shoulder L AROM Flexion 105 External Rotation at 0 degrees Abduction 50 Comments 06/07/24: AAROM 100 deg, AROM 90 deg in supine in scaption 06/21/24: 104 deg flexion in scaption, 45 deg ER in scaption 07/12/24: 105 deg fwd flexion in scaption (110 deg end of session), 50 deg ER in scaption; pain free for all PT-OP-M Strength Start: 04/29/24 09:02 Freq: Status: Active Protocol: Document 07/12/24 10:32 NM (Rec: 07/12/24 11:17 NM [id number]) Shoulder Strength Shoulder Manual Muscle Testing Left Flexion 4- Good- External Rotation 4- Good- Comments IE: Did not assess due to surgical precautions 05/28/24: Did not assess due to surgical precautions 06/21/24: full available ROM against gravity without resistance or pain 07/12/24: 4-/5 for all; pain free; able to perform shoulder flex w/ 1# db in supine PT-OP-Q Treatments Start: 04/29/24 09:02 Freq: Status: Active Protocol: Document 07/19/24 08:51 AB (Rec: 07/19/24 12:52 AB [id number]) Therapeutic Exercises Supine Exercises shoulder flexion Supine Exercise Name HEP Side bilateral Resistance 1 lb Reps/Minutes X10 Sidelying Exercises external rotation Sidelying Exercise Name AROM HEP Side left Resistance 1lb Equipment Used towel roll for scaption Reps/Minutes X15 with 1 lb X 15 without weight Comments VC to hold end rom Standing Exercises row Standing Exercise Name walkout isometric (neutral elbow positioning, no shldr ext) HEP Side bilateral Resistance level 1 band Reps/Minutes X15 Comments verbal and visual cues isometrics Standing Exercise Name HEP1. ER walkout, 2. IR walkouts Side left Resistance 1 level 1 band Equipment Used towel roll in between body Reps/Minutes X10 and X 5 each Comments ER more challenging for pt Other Exercises reclined AAROM Other Exercise Name reclined flexion HEP Side bilateral Resistance 1 lb Reps/Minutes X10 Comments VC for 2 sec hold Manual Therapy Treatment Soft Tissue Mobilization periscapulars Body Location rhomboids, LS, UT, lat Mobilization Type Cross-Friction,Rolling Intensity/Depth Superficial Body Position Sidelying L arm Body Location pec near axilla Mobilization Type Cross-Friction,Rolling, Sustained Pressure Intensity/Depth Moderate Body Position Hooklying Joint Mobilizations L scapulothoracic Direction into depression and adduction Grade III Body Position Sidelying Reps/Duration 10 ea Manual Techniques scapular isometrics Type L retraction, adduction Body Position Sidelying Reps/Duration X10 each sidelying X10 scap retract seated PT-OP-T Assessment and Plan Start: 04/29/24 09:02 Freq: Status: Active Protocol: Document 07/19/24 08:51 AB (Rec: 07/19/24 12:52 AB [id number]) Physical Therapy Assessment Other Concerns Barriers to Rehabilitation Pt has limitations in R shoulder AROM/strength as well , including hx of arthritis. Goals 6 Impairment ADLs Impairment unable to perform ADLs Accountant Supervisor Goal (LTG) Pt will report that he is able to perform all dressing and grooming per PLOF without limitation due to L shoulder or without increase in baseline pain 06/21/24: pt continues to have limitations in dressing 07/12/24: pt reports limitations with drying back and donning/ doffing jacket; no other limitations with dressing LTG Duration 12 weeks PARTIALLY MET 5 Impairment HEP Impairment not performing HEP Short Term Goal (STG) Pt will report compliance with HEP at least 3x/wk in order to maximize progression with PT 05/28/24: performs daily STG Duration 6 weeks Accountant Supervisor Goal (LTG) Pt will report compliance with HEP at least 3x/wk in order to demonstrate smooth transition into maintenance program 07/12/24: pt performing HEP as prescribed at least 3x/wk LTG Duration 12 weeks MET 4 Impairment strength Impairment L shoulder MMT not tested due to precautions Short Term Goal (STG) Pt will improve L shoulder global strength to at least 4- /5 in order to demonstrate improved strength for ADLs/ activities 05/28/24: not tested due to precautions 06/21/24: 3/5, able to achieve ROM w/o resistance 07/12/24: 4-/5 for flex and ER w /o pain STG Duration 9 weeks MET Accountant Supervisor Goal (LTG) Pt will improve L shoulder global strength to at least 4/ 5 in order to demonstrate improved strength for ADLs/ activities 07/12/24: 4-/5 for flex and ER w /o pain LTG Duration 12 weeks PROGRESSING 3 Impairment ROM Impairment L shoulder ER Short Term Goal (STG) Pt will improve L shoulder ER AROM in scaption plane to at least 20 deg in order to demonstrate improved shoulder mobility for dressing and reaching 05/28/24: PROM ER to neutral per protocol 06/21/24: 45 deg ER in scaption AROM STG Duration 9 weeks MET Accountant Supervisor Goal (LTG) Pt will improve L shoulder ER AROM in scaption plane to at least 30 deg in order to demonstrate improved shoulder mobility for dressing and reaching 06/21/24: 45 deg ER in scaption AROM 07/12/24: 50 deg ER in scaption plane LTG Duration 12 weeks MET 2 Impairment ROM Impairment L shoulder flexion Short Term Goal (STG) Pt will improve L shoulder flexion AROM in scaption plane to at least 90 deg in order to demonstrate improved shoulder mobility for dressing and reaching 05/28/24: PROM 90 deg 06/21/24: 104 deg flexion in scaption STG Duration 9 weeks MET Accountant Supervisor Goal (LTG) Pt will improve L shoulder flexion AROM in scaption plane to at least 105 deg in order to demonstrate improved shoulder mobility for dressing and reaching 07/12/24: 105 deg flexion in scaption plane LTG Duration 12 weeks MET 1 Impairment quickdash Impairment 46 or 79.5% impaired Short Term Goal (STG) Pt will report <60% impairment in L shoulder use per Quickdash to demonstrate improved QOL 06/21/24: 27.5% impairment STG Duration 8 weeks Alf Goal (LTG) Pt will report <60% impairment in L shoulder use per Quickdash to demonstrate improved QOL and activity tolerance 06/21/24: 27.5% impairment LTG Duration 12 weeks MET Assessment Summary Assessment 112 deg scaption left shoulder end of session, rates pain 3/ 10 end of session, commenting it often hurts more than this in the morning after sleeping on it. Physical Therapy Plan Frequency and Duration Frequency of Treatment 1-2x/wk Duration of treatment (weeks) 12 Plan of Care Start Date 07/12/24 Plan of Care End Date 10/18/24 Next Visit Focus/Plan Next Note Type Treatment Note Next Visit Plan Update HEP ea session since 1x /wk progress up to standing, , wall slide w/ band, miniband flexion in supine, row walkout w/ band (add HEP), stair slides as needed, Manual: scapular mobility, GHJ mob if neded
--- NOTE | 2024-07-26 12:19 | PT.OTN ---
Current Diagnoses Primary osteoarthritis, left shoulder (07/26/24) Stiffness of left shoulder, not elsewhere classified (07/26/24) Weakness (07/26/24) Physical Therapy Treatment Note PT-OP-A Visit Information Start: 04/29/24 09:02 Freq: Status: Active Protocol: Document 07/26/24 10:17 AB (Rec: 07/26/24 12:17 AB [id number]) Out-Patient Physical Therapy Visit Information Visit Information Visit Type Treatment Note Visit Note 15 visits, DOS 04/25/24 Access code [email or web address] Visit Start Time 10:34 Visit Stop Time 11:18 Visit Number 19 Number of ATTENDING AMBULATORY CARE Visits 2 Evaluation Information Evaluation Date 04/29/24 Precautions Precautions 4 weeks: 05/23, 6 weeks: 06/06, 8 weeks: 06/20, 10 weeks: 07/04, 12 weeks: 07/18 Reverse TSA precautions (DOS 04/25/24): no IR/Ext, no Ext past neutral Sling for 6 weeks, PROM goal up to 90 deg at 6 weeks and ER to neutral per protocol, No AROM until 6 weeks PT-OP-B Current Condition Start: 04/29/24 09:02 Freq: Status: Active Protocol: Document 04/29/24 09:03 NM (Rec: 04/29/24 09:55 NM [id number]) Current Condition History of Current Condition Onset Date DOS 04/25/24 Current Complaints pain, sleeping, mobility, strength History of Current Condition Pt presents with L rTSA on . He had no complications . He presents with his partner , who helped provide hx. Pt has large red bruise on the L biceps muscle belly, unsure if due to surgery or when sleeping. Pt has been wearing the sling, which his partner has been helping assist. Prior to surgery, he was doing exercises from previous PT, but he got tremendous pain in L shoulder- got referral due to rotator cuff tear. Pt reports pain has been well managed, has not been on any pain meds but using cryotherapy 4-5x/day. He has most discomfort with shoulder in sleeping (bed and recliner) . Pt also has nocturia, so has been sleeping in recliner. Partner has moved coffee table , has night lights, removed obstacles. Next follow up with Dr. Yuan: 7/5 (take off dressing and momo). Has midline neck pain as well, hard to look up. Treatment Goals Patient/Caregiver Goals return to normal 2 handed life Prior Functional Status Baseline Function- ADL's Independent Baseline Function- Mobility Independent Current Functional Impairments (Reported) Functional Limitations- ADL's dressing, grooming Functional Limitations- Mobility/Gait reaching, lifting PT-OP-C Subjective Start: 04/29/24 09:02 Freq: Status: Active Protocol: Document 07/26/24 10:17 AB (Rec: 07/26/24 12:17 AB [id number]) OP-PT Subjective Patient Comments Patient Comments Patient reports no pain end of session. Patient reports doing the HEP at home, reports home exercises do not really hurt. AROM left shoulder scaption 106 deg start of session. PT-OP-E Functional Tests Start: 04/29/24 09:02 Freq: Status: Active Protocol: Document 04/29/24 09:03 NM (Rec: 04/29/24 09:55 NM [id number]) Functional Tests Apley's Scratch Test Action 1- Left N/A Action 1- Right opposite shoulder Action 2- Left N/A Action 2- Right T3 Action 3- Left N/A Action 3- Right T9 PT-OP-F Manual Assessment Start: 04/29/24 09:02 Freq: Status: Active Protocol: Document 04/29/24 09:03 NM (Rec: 04/29/24 16:42 NM [id number]) Manual Assessments Soft Tissue Assessment Soft Tissue Mobility Assessment Increased pectoralis muscle tightness, forward head and shoulders Joint Mobility Assessment Joint Mobility Assessment Right shoulder mobility limited in all planes on contralateral side to surgery PT-OP-J Posture/Palpation/Skin Start: 04/29/24 09:02 Freq: Status: Active Protocol: Document 04/29/24 09:03 NM (Rec: 04/29/24 16:42 NM [id number]) Posture Evaluation Position Standing Head/C-Spine Posture Forward Head T-Spine Posture Increased Kyphosis Shoulder Posture (L) Rounded,(R) Rounded,(L) Forward,(R) Forward Comments Posture Comments L arm positioned in abduction sling. Demonstrates increased foward flexed posture at trunk , neck, and shoulders Palpation Assessment Location L shoulder Palpation Details Tenderness reported along incision, anterior shoulder, AC joint Skin Assessment Incisional Assessment Incision Appearance/Comments Did not remove bandage; dressings clean/dry/intact with no signs of redness or infection Other Assessments Skin Assessment Comments Pt has large red/purple bruise along L biceps and anterior shoulder below surgical site PT-OP-K Range of Motion Start: 04/29/24 09:02 Freq: Status: Active Protocol: Document 07/12/24 10:32 NM (Rec: 07/12/24 11:17 NM [id number]) Shoulder Goniometric Range of Motion Shoulder L AROM Flexion 105 External Rotation at 0 degrees Abduction 50 Comments 06/07/24: AAROM 100 deg, AROM 90 deg in supine in scaption 06/21/24: 104 deg flexion in scaption, 45 deg ER in scaption 07/12/24: 105 deg fwd flexion in scaption (110 deg end of session), 50 deg ER in scaption; pain free for all PT-OP-M Strength Start: 04/29/24 09:02 Freq: Status: Active Protocol: Document 07/12/24 10:32 NM (Rec: 07/12/24 11:17 NM [id number]) Shoulder Strength Shoulder Manual Muscle Testing Left Flexion 4- Good- External Rotation 4- Good- Comments IE: Did not assess due to surgical precautions 05/28/24: Did not assess due to surgical precautions 06/21/24: full available ROM against gravity without resistance or pain 07/12/24: 4-/5 for all; pain free; able to perform shoulder flex w/ 1# db in supine PT-OP-Q Treatments Start: 04/29/24 09:02 Freq: Status: Active Protocol: Document 07/26/24 10:17 AB (Rec: 07/26/24 12:17 AB [id number]) Therapeutic Exercises Supine Exercises shoulder flexion Supine Exercise Name HEP Side bilateral Resistance 2 lb to HEP Reps/Minutes x15 Standing Exercises row Standing Exercise Name walkout isometric (neutral elbow positioning, no shldr ext) HEP Side bilateral Resistance level 1 band Reps/Minutes X15 Comments verbal and visual cues wall slide Standing Exercise Name wall slide with band HEP Side bilateral Resistance level one band Reps/Minutes X10 Comments on forearms, Verbal and visual cues Rail slide Side left Equipment Used railing Reps/Minutes X15 Comments Verbal and visual cues, patient ed to perform pain free isometrics Standing Exercise Name HEP1. ER walkout, 2. IR walkouts Side left Resistance 1 level 1 band Equipment Used towel roll in between body Reps/Minutes X15 each Other Exercises reclined AAROM Other Exercise Name reclined flexion HEP Side bilateral Resistance 2 lb ( to HEP) Reps/Minutes X10 Comments VC for 2 sec hold Manual Therapy Treatment Soft Tissue Mobilization periscapulars Body Location rhomboids, LS, UT, lat Mobilization Type Cross-Friction,Rolling Intensity/Depth Superficial Body Position Sidelying L arm Body Location pec near axilla Mobilization Type Cross-Friction,Rolling, Sustained Pressure Intensity/Depth Moderate Body Position Hooklying Joint Mobilizations L 1st rib Direction caudal Grade III Body Position Sidelying Reps/Duration 15 L scapulothoracic Direction into depression and adduction Grade III Body Position Sidelying Reps/Duration 10 ea PT-OP-T Assessment and Plan Start: 04/29/24 09:02 Freq: Status: Active Protocol: Document 07/26/24 10:17 AB (Rec: 07/26/24 12:17 AB [id number]) Physical Therapy Assessment Goals 6 Impairment ADLs Impairment unable to perform ADLs Jail Goal (LTG) Pt will report that he is able to perform all dressing and grooming per PLOF without limitation due to L shoulder or without increase in baseline pain 06/21/24: pt continues to have limitations in dressing 07/12/24: pt reports limitations with drying back and donning/ doffing jacket; no other limitations with dressing LTG Duration 12 weeks PARTIALLY MET 5 Impairment HEP Impairment not performing HEP Short Term Goal (STG) Pt will report compliance with HEP at least 3x/wk in order to maximize progression with PT 05/28/24: performs daily STG Duration 6 weeks Jail Goal (LTG) Pt will report compliance with HEP at least 3x/wk in order to demonstrate smooth transition into maintenance program 07/12/24: pt performing HEP as prescribed at least 3x/wk LTG Duration 12 weeks MET 4 Impairment strength Impairment L shoulder MMT not tested due to precautions Short Term Goal (STG) Pt will improve L shoulder global strength to at least 4- /5 in order to demonstrate improved strength for ADLs/ activities 05/28/24: not tested due to precautions 06/21/24: 3/5, able to achieve ROM w/o resistance 07/12/24: 4-/5 for flex and ER w /o pain STG Duration 9 weeks MET Pot Fireman Goal (LTG) Pt will improve L shoulder global strength to at least 4/ 5 in order to demonstrate improved strength for ADLs/ activities 07/12/24: 4-/5 for flex and ER w /o pain LTG Duration 12 weeks PROGRESSING 3 Impairment ROM Impairment L shoulder ER Short Term Goal (STG) Pt will improve L shoulder ER AROM in scaption plane to at least 20 deg in order to demonstrate improved shoulder mobility for dressing and reaching 05/28/24: PROM ER to neutral per protocol 06/21/24: 45 deg ER in scaption AROM STG Duration 9 weeks MET Pot Fireman Goal (LTG) Pt will improve L shoulder ER AROM in scaption plane to at least 30 deg in order to demonstrate improved shoulder mobility for dressing and reaching 06/21/24: 45 deg ER in scaption AROM 07/12/24: 50 deg ER in scaption plane LTG Duration 12 weeks MET 2 Impairment ROM Impairment L shoulder flexion Short Term Goal (STG) Pt will improve L shoulder flexion AROM in scaption plane to at least 90 deg in order to demonstrate improved shoulder mobility for dressing and reaching 05/28/24: PROM 90 deg 06/21/24: 104 deg flexion in scaption STG Duration 9 weeks MET Pot Fireman Goal (LTG) Pt will improve L shoulder flexion AROM in scaption plane to at least 105 deg in order to demonstrate improved shoulder mobility for dressing and reaching 07/12/24: 105 deg flexion in scaption plane LTG Duration 12 weeks MET 1 Impairment quickdash Impairment 46 or 79.5% impaired Short Term Goal (STG) Pt will report <60% impairment in L shoulder use per Quickdash to demonstrate improved QOL 06/21/24: 27.5% impairment STG Duration 8 weeks Jail Goal (LTG) Pt will report <60% impairment in L shoulder use per Quickdash to demonstrate improved QOL and activity tolerance 06/21/24: 27.5% impairment LTG Duration 12 weeks MET Assessment Summary Assessment 116 deg AROM left shoulder scaption end of session. Patient rates pain 0/10 end of session left shoulder. Physical Therapy Plan Frequency and Duration Frequency of Treatment 1-2x/wk Duration of treatment (weeks) 12 Plan of Care Start Date 07/12/24 Plan of Care End Date 10/18/24 Next Visit Focus/Plan Next Note Type Treatment Note Next Visit Plan Update HEP ea session since 1x /wk progress up to standing, , miniband flexion in supine, row walkout w/ band (add HEP), stair slides as needed, Manual: scapular mobility, GHJ mob if neded
--- NOTE | 2024-08-02 11:15 | PT.OTN ---
Current Diagnoses Primary osteoarthritis, left shoulder (08/02/24) Stiffness of left shoulder, not elsewhere classified (08/02/24) Weakness (08/02/24) Physical Therapy Treatment Note PT-OP-A Visit Information Start: 04/29/24 09:02 Freq: Status: Active Protocol: Document 08/02/24 10:25 NM (Rec: 08/02/24 11:15 NM [id number]) Out-Patient Physical Therapy Visit Information Visit Information Visit Type Treatment Note Visit Note 15 visits, DOS 04/25/24 Access code [email or web address] Visit Start Time 10: Visit Stop Time 11:10 Visit Number 20 Evaluation Information Evaluation Date 04/29/24 Precautions Precautions 4 weeks: 05/23, 6 weeks: 06/06, 8 weeks: 06/20, 10 weeks: 07/04, 12 weeks: 07/18 Reverse TSA precautions (DOS 04/25/24): no IR/Ext, no Ext past neutral Sling for 6 weeks, PROM goal up to 90 deg at 6 weeks and ER to neutral per protocol, No AROM until 6 weeks PT-OP-B Current Condition Start: 04/29/24 09:02 Freq: Status: Active Protocol: Document 04/29/24 09:03 NM (Rec: 04/29/24 09:55 NM [id number]) Current Condition History of Current Condition Onset Date DOS 04/25/24 Current Complaints pain, sleeping, mobility, strength History of Current Condition Pt presents with L rTSA on . He had no complications . He presents with his partner , who helped provide hx. Pt has large red bruise on the L biceps muscle belly, unsure if due to surgery or when sleeping. Pt has been wearing the sling, which his partner has been helping assist. Prior to surgery, he was doing exercises from previous PT, but he got tremendous pain in L shoulder- got referral due to rotator cuff tear. Pt reports pain has been well managed, has not been on any pain meds but using cryotherapy 4-5x/day. He has most discomfort with shoulder in sleeping (bed and recliner) . Pt also has nocturia, so has been sleeping in recliner. Partner has moved coffee table , has night lights, removed obstacles. Next follow up with Dr. Yuan: 05/10 (take off dressing and momo). Has midline neck pain as well, hard to look up. Treatment Goals Patient/Caregiver Goals return to normal 2 handed life Prior Functional Status Baseline Function- ADL's Independent Baseline Function- Mobility Independent Current Functional Impairments (Reported) Functional Limitations- ADL's dressing, grooming Functional Limitations- Mobility/Gait reaching, lifting PT-OP-C Subjective Start: 04/29/24 09:02 Freq: Status: Active Protocol: Document 08/02/24 10:25 NM (Rec: 08/02/24 11:15 NM [id number]) OP-PT Subjective Patient Comments Patient Comments Pt reports that his exercises are going well, up to 2# with lifting. States that MD wants him to focus on strengthening, reports no limitations, just use common sense. Pt reports no pain sleeping on his L side, except in lower L flank. Pt and partner were moving an object, pt using his R hand only when he pulled his back. Pt planning to see Dr. Yuan in 1 year. PT-OP-E Functional Tests Start: 04/29/24 09:02 Freq: Status: Active Protocol: Document 04/29/24 09:03 NM (Rec: 04/29/24 09:55 NM [id number]) Functional Tests Apley's Scratch Test Action 1- Left N/A Action 1- Right opposite shoulder Action 2- Left N/A Action 2- Right T3 Action 3- Left N/A Action 3- Right T9 PT-OP-F Manual Assessment Start: 04/29/24 09:02 Freq: Status: Active Protocol: Document 04/29/24 09:03 NM (Rec: 04/29/24 16:42 NM [id number]) Manual Assessments Soft Tissue Assessment Soft Tissue Mobility Assessment Increased pectoralis muscle tightness, forward head and shoulders Joint Mobility Assessment Joint Mobility Assessment Right shoulder mobility limited in all planes on contralateral side to surgery PT-OP-J Posture/Palpation/Skin Start: 04/29/24 09:02 Freq: Status: Active Protocol: Document 04/29/24 09:03 NM (Rec: 04/29/24 16:42 NM [id number]) Posture Evaluation Position Standing Head/C-Spine Posture Forward Head T-Spine Posture Increased Kyphosis Shoulder Posture (L) Rounded,(R) Rounded,(L) Forward,(R) Forward Comments Posture Comments L arm positioned in abduction sling. Demonstrates increased foward flexed posture at trunk , neck, and shoulders Palpation Assessment Location L shoulder Palpation Details Tenderness reported along incision, anterior shoulder, AC joint Skin Assessment Incisional Assessment Incision Appearance/Comments Did not remove bandage; dressings clean/dry/intact with no signs of redness or infection Other Assessments Skin Assessment Comments Pt has large red/purple bruise along L biceps and anterior shoulder below surgical site PT-OP-K Range of Motion Start: 04/29/24 09:02 Freq: Status: Active Protocol: Document 07/12/24 10:32 NM (Rec: 07/12/24 11:17 NM [id number]) Shoulder Goniometric Range of Motion Shoulder L AROM Flexion 105 External Rotation at 0 degrees Abduction 50 Comments 06/07/24: AAROM 100 deg, AROM 90 deg in supine in scaption 06/21/24: 104 deg flexion in scaption, 45 deg ER in scaption 07/12/24: 105 deg fwd flexion in scaption (110 deg end of session), 50 deg ER in scaption; pain free for all PT-OP-M Strength Start: 04/29/24 09:02 Freq: Status: Active Protocol: Document 07/12/24 10:32 NM (Rec: 07/12/24 11:17 NM [id number]) Shoulder Strength Shoulder Manual Muscle Testing Left Flexion 4- Good- External Rotation 4- Good- Comments IE: Did not assess due to surgical precautions 05/28/24: Did not assess due to surgical precautions 06/21/24: full available ROM against gravity without resistance or pain 07/12/24: 4-/5 for all; pain free; able to perform shoulder flex w/ 1# db in supine PT-OP-Q Treatments Start: 04/29/24 09:02 Freq: Status: Active Protocol: Document 08/02/24 10:25 NM (Rec: 08/02/24 11:15 NM [id number]) Therapeutic Exercises Supine Exercises shoulder flexion Supine Exercise Name HEP Side left Resistance 2#> 3# Reps/Minutes 5 (2#), 10 (3#) Comments pain free; cued elbow extended Sidelying Exercises scapular clock Sidelying Exercise Name 12, 9, 6 o'clock Side left Reps/Minutes 10 Sitting Exercises reclined shoulder flexion Side left Resistance 3# (Trialed) > 2# Reps/Minutes 3 w/ 3# but challenging, 2x10 w/ 2# Comments edu to do 3# supine but not reclined; cued limit head mvmt Standing Exercises row Standing Exercise Name 1. row to neutral (HEP), 2. low row, 3. high row Side bilateral Resistance level 1 band Reps/Minutes 2x10 ea except high row 5 as pt unable to get form correct Comments tactile cues, improved w/ reps wall slide Standing Exercise Name wall slide with band HEP review Side bilateral Resistance level one band- tied in loop Reps/Minutes 10 Comments on forearms, Verbal and visual cues raiza for ER; fatigues Manual Therapy Treatment Consent Patient gave verbal consent for manual Yes treatment Soft Tissue Mobilization periscapulars Body Location rhomboids, LS, UT, lat Mobilization Type Cross-Friction,Rolling Intensity/Depth Superficial Body Position Sidelying L arm Body Location pec near axilla, biceps Mobilization Type Cross-Friction,Rolling, Sustained Pressure Intensity/Depth Moderate Body Position Hooklying Comments Tightness at L biceps, reduced with mobilization Joint Mobilizations L GHJ Direction post Grade II Body Position Supine Reps/Duration 10 L scapulothoracic Direction into depression and adduction Grade III Body Position Sidelying Reps/Duration 10 ea PT-OP-T Assessment and Plan Start: 04/29/24 09:02 Freq: Status: Active Protocol: Document 08/02/24 10:25 NM (Rec: 08/02/24 11:15 NM [id number]) Physical Therapy Assessment Goals 6 Impairment ADLs Impairment unable to perform ADLs Developmental Specialist Goal (LTG) Pt will report that he is able to perform all dressing and grooming per PLOF without limitation due to L shoulder or without increase in baseline pain 06/21/24: pt continues to have limitations in dressing 07/12/24: pt reports limitations with drying back and donning/ doffing jacket; no other limitations with dressing LTG Duration 12 weeks PARTIALLY MET 5 Impairment HEP Impairment not performing HEP Short Term Goal (STG) Pt will report compliance with HEP at least 3x/wk in order to maximize progression with PT 05/28/24: performs daily STG Duration 6 weeks Half-Way Goal (LTG) Pt will report compliance with HEP at least 3x/wk in order to demonstrate smooth transition into maintenance program 07/12/24: pt performing HEP as prescribed at least 3x/wk LTG Duration 12 weeks MET 4 Impairment strength Impairment L shoulder MMT not tested due to precautions Short Term Goal (STG) Pt will improve L shoulder global strength to at least 4- /5 in order to demonstrate improved strength for ADLs/ activities 05/28/24: not tested due to precautions 06/21/24: 3/5, able to achieve ROM w/o resistance 07/12/24: 4-/5 for flex and ER w /o pain STG Duration 9 weeks MET Developmental Specialist Goal (LTG) Pt will improve L shoulder global strength to at least 4/ 5 in order to demonstrate improved strength for ADLs/ activities 07/12/24: 4-/5 for flex and ER w /o pain LTG Duration 12 weeks PROGRESSING 3 Impairment ROM Impairment L shoulder ER Short Term Goal (STG) Pt will improve L shoulder ER AROM in scaption plane to at least 20 deg in order to demonstrate improved shoulder mobility for dressing and reaching 05/28/24: PROM ER to neutral per protocol 06/21/24: 45 deg ER in scaption AROM STG Duration 9 weeks MET Half-Way Goal (LTG) Pt will improve L shoulder ER AROM in scaption plane to at least 30 deg in order to demonstrate improved shoulder mobility for dressing and reaching 06/21/24: 45 deg ER in scaption AROM 07/12/24: 50 deg ER in scaption plane LTG Duration 12 weeks MET 2 Impairment ROM Impairment L shoulder flexion Short Term Goal (STG) Pt will improve L shoulder flexion AROM in scaption plane to at least 90 deg in order to demonstrate improved shoulder mobility for dressing and reaching 05/28/24: PROM 90 deg 06/21/24: 104 deg flexion in scaption STG Duration 9 weeks MET Developmental Specialist Goal (LTG) Pt will improve L shoulder flexion AROM in scaption plane to at least 105 deg in order to demonstrate improved shoulder mobility for dressing and reaching 07/12/24: 105 deg flexion in scaption plane LTG Duration 12 weeks MET 1 Impairment quickdash Impairment 46 or 79.5% impaired Short Term Goal (STG) Pt will report <60% impairment in L shoulder use per Quickdash to demonstrate improved QOL 06/21/24: 27.5% impairment STG Duration 8 weeks Developmental Specialist Goal (LTG) Pt will report <60% impairment in L shoulder use per Quickdash to demonstrate improved QOL and activity tolerance 06/21/24: 27.5% impairment LTG Duration 12 weeks MET Assessment Summary Assessment Pt starting at 115 deg L shoulder flexion, 116 deg in scaption at end of session. Progressed to 3# dumbbell shoulder flexion in supine only. Pt able to perform 2 sets of 10 for 2# dumbbell in reclined position, but unable to progress resistance. Cued for correct execution during wall slide, emphasis on maintaining tension on band. Cued to limit ROM slightly to improve form. Trialed rows, low rows, and high rows for improved shoulder stabilization with respect to neutral position. Good form for rows and low rows. Pt has no pain at end of session. Physical Therapy Plan Frequency and Duration Frequency of Treatment 1-2x/wk Duration of treatment (weeks) 12 Plan of Care Start Date 07/12/24 Plan of Care End Date 10/18/24 Therapeutic Interventions Therapeutic Interventions Gait Training,Home Exercise Program,Joint Mobilizations, Manual Therapy,Neuromuscular Re-education,Orthotic/ Prosthetic Management,Patient/ Caregiver Education,Self-Care/ Home Management,Sensory Integration,Soft Tissue Mobilization,Taping, Therapeutic Activities, Therapeutic Exercises Modalities Cold Pack/Ice Massage,Electric Stimulation,Hot Packs, Ultrasound Next Visit Focus/Plan Next Note Type Treatment Note Next Visit Plan Update HEP ea session since 1x /wk progress up to standing w/ shoulder flexion resistance, review row/low row/high row and progress. progress resistance with ER/IR if able, stair slides as needed. trial overhead press Manual: scapular mobility, GHJ mob if needed
--- NOTE | 2024-08-09 09:59 | PT.OTN ---
Current Diagnoses Primary osteoarthritis, left shoulder (08/09/24) Stiffness of left shoulder, not elsewhere classified (08/09/24) Weakness (08/09/24) Physical Therapy Treatment Note PT-OP-A Visit Information Start: 04/29/24 09:02 Freq: Status: Active Protocol: Document 08/09/24 08:12 AB (Rec: 08/09/24 09:59 AB [id number]) Out-Patient Physical Therapy Visit Information Visit Information Visit Type Treatment Note Visit Note 15 visits, DOS 04/25/24 Access code [email or web address] Visit Start Time 09:02 Visit Stop Time 09:49 Visit Number 21 Number of CUSTOMER CARE COORDINATOR Visits 1 Evaluation Information Evaluation Date 04/29/24 Precautions Precautions 4 weeks: 05/23, 6 weeks: 06/06, 8 weeks: 06/20, 10 weeks: 07/04, 12 weeks: 07/18 Reverse TSA precautions (DOS 04/25/24): no IR/Ext, no Ext past neutral Sling for 6 weeks, PROM goal up to 90 deg at 6 weeks and ER to neutral per protocol, No AROM until 6 weeks PT-OP-B Current Condition Start: 04/29/24 09:02 Freq: Status: Active Protocol: Document 04/29/24 09:03 NM (Rec: 04/29/24 09:55 NM [id number]) Current Condition History of Current Condition Onset Date DOS 04/25/24 Current Complaints pain, sleeping, mobility, strength History of Current Condition Pt presents with L rTSA on . He had no complications . He presents with his partner , who helped provide hx. Pt has large red bruise on the L biceps muscle belly, unsure if due to surgery or when sleeping. Pt has been wearing the sling, which his partner has been helping assist. Prior to surgery, he was doing exercises from previous PT, but he got tremendous pain in L shoulder- got referral due to rotator cuff tear. Pt reports pain has been well managed, has not been on any pain meds but using cryotherapy 4-5x/day. He has most discomfort with shoulder in sleeping (bed and recliner) . Pt also has nocturia, so has been sleeping in recliner. Partner has moved coffee table , has night lights, removed obstacles. Next follow up with Dr. Yuan: 7/5 (take off dressing and momo). Has midline neck pain as well, hard to look up. Treatment Goals Patient/Caregiver Goals return to normal 2 handed life Prior Functional Status Baseline Function- ADL's Independent Baseline Function- Mobility Independent Current Functional Impairments (Reported) Functional Limitations- ADL's dressing, grooming Functional Limitations- Mobility/Gait reaching, lifting PT-OP-C Subjective Start: 04/29/24 09:02 Freq: Status: Active Protocol: Document 08/09/24 08:12 AB (Rec: 08/09/24 09:59 AB [id number]) OP-PT Subjective Patient Comments Patient Comments Patient reports the shoulder is getting better. Patient reports he cannot place hand behind back, and able to verbalize MD's instruction to use common sense if it hurts don't do it. AROM 108 deg flexion left shoulder start of session. PT-OP-E Functional Tests Start: 04/29/24 09:02 Freq: Status: Active Protocol: Document 04/29/24 09:03 NM (Rec: 04/29/24 09:55 NM [id number]) Functional Tests Apley's Scratch Test Action 1- Left N/A Action 1- Right opposite shoulder Action 2- Left N/A Action 2- Right T3 Action 3- Left N/A Action 3- Right T9 PT-OP-F Manual Assessment Start: 04/29/24 09:02 Freq: Status: Active Protocol: Document 04/29/24 09:03 NM (Rec: 04/29/24 16:42 NM [id number]) Manual Assessments Soft Tissue Assessment Soft Tissue Mobility Assessment Increased pectoralis muscle tightness, forward head and shoulders Joint Mobility Assessment Joint Mobility Assessment Right shoulder mobility limited in all planes on contralateral side to surgery PT-OP-J Posture/Palpation/Skin Start: 04/29/24 09:02 Freq: Status: Active Protocol: Document 04/29/24 09:03 NM (Rec: 04/29/24 16:42 NM [id number]) Posture Evaluation Position Standing Head/C-Spine Posture Forward Head T-Spine Posture Increased Kyphosis Shoulder Posture (L) Rounded,(R) Rounded,(L) Forward,(R) Forward Comments Posture Comments L arm positioned in abduction sling. Demonstrates increased foward flexed posture at trunk , neck, and shoulders Palpation Assessment Location L shoulder Palpation Details Tenderness reported along incision, anterior shoulder, AC joint Skin Assessment Incisional Assessment Incision Appearance/Comments Did not remove bandage; dressings clean/dry/intact with no signs of redness or infection Other Assessments Skin Assessment Comments Pt has large red/purple bruise along L biceps and anterior shoulder below surgical site PT-OP-K Range of Motion Start: 04/29/24 09:02 Freq: Status: Active Protocol: Document 07/12/24 10:32 NM (Rec: 07/12/24 11:17 NM [id number]) Shoulder Goniometric Range of Motion Shoulder L AROM Flexion 105 External Rotation at 0 degrees Abduction 50 Comments 06/07/24: AAROM 100 deg, AROM 90 deg in supine in scaption 06/21/24: 104 deg flexion in scaption, 45 deg ER in scaption 07/12/24: 105 deg fwd flexion in scaption (110 deg end of session), 50 deg ER in scaption; pain free for all PT-OP-M Strength Start: 04/29/24 09:02 Freq: Status: Active Protocol: Document 07/12/24 10:32 NM (Rec: 07/12/24 11:17 NM [id number]) Shoulder Strength Shoulder Manual Muscle Testing Left Flexion 4- Good- External Rotation 4- Good- Comments IE: Did not assess due to surgical precautions 05/28/24: Did not assess due to surgical precautions 06/21/24: full available ROM against gravity without resistance or pain 07/12/24: 4-/5 for all; pain free; able to perform shoulder flex w/ 1# db in supine PT-OP-Q Treatments Start: 04/29/24 09:02 Freq: Status: Active Protocol: Document 08/09/24 08:12 AB (Rec: 08/09/24 09:59 AB [id number]) Therapeutic Exercises Supine Exercises shoulder flexion Supine Exercise Name HEP Side left Resistance 3# to HEP Reps/Minutes X15 Comments monitoed for pain Sidelying Exercises sidelying abduction Side left Reps/Minutes X10 Comments VC to hold end ROM external rotation Sidelying Exercise Name AROM HEP Side left Resistance 1lb, Equipment Used towel roll Reps/Minutes X10 without band with 1# Comments VC to hold end rom Standing Exercises overhead press Side bilateral Reps/Minutes X4 Comments Increased difficulty for form/ inc UT activation row Standing Exercise Name Row Side bilateral Resistance level 1 band Reps/Minutes X3 with step back X 15 Row standard Row Other Exercises Shoulder ER/IR Other Exercise Name HEP Side left Resistance level one band Reps/Minutes X10 Comments monitored for pain 10 post ex, 010 end of session reclined AAROM Other Exercise Name reclined flexion HEP Resistance 3 lb ( to HEP) Reps/Minutes X10 Comments VC for 2 sec hold PT-OP-T Assessment and Plan Start: 04/29/24 09:02 Freq: Status: Active Protocol: Document 08/09/24 08:12 AB (Rec: 08/09/24 09:59 AB [id number]) Physical Therapy Assessment Goals 6 Impairment ADLs Impairment unable to perform ADLs Hand Suture Winder Goal (LTG) Pt will report that he is able to perform all dressing and grooming per PLOF without limitation due to L shoulder or without increase in baseline pain 06/21/24: pt continues to have limitations in dressing 07/12/24: pt reports limitations with drying back and donning/ doffing jacket; no other limitations with dressing LTG Duration 12 weeks PARTIALLY MET 5 Impairment HEP Impairment not performing HEP Short Term Goal (STG) Pt will report compliance with HEP at least 3x/wk in order to maximize progression with PT 05/28/24: performs daily STG Duration 6 weeks [facility] Goal (LTG) Pt will report compliance with HEP at least 3x/wk in order to demonstrate smooth transition into maintenance program 07/12/24: pt performing HEP as prescribed at least 3x/wk LTG Duration 12 weeks MET 4 Impairment strength Impairment L shoulder MMT not tested due to precautions Short Term Goal (STG) Pt will improve L shoulder global strength to at least 4- /5 in order to demonstrate improved strength for ADLs/ activities 05/28/24: not tested due to precautions 06/21/24: 3/5, able to achieve ROM w/o resistance 07/12/24: 4-/5 for flex and ER w /o pain STG Duration 9 weeks MET Hand Suture Winder Goal (LTG) Pt will improve L shoulder global strength to at least 4/ 5 in order to demonstrate improved strength for ADLs/ activities 07/12/24: 4-/5 for flex and ER w /o pain LTG Duration 12 weeks PROGRESSING 3 Impairment ROM Impairment L shoulder ER Short Term Goal (STG) Pt will improve L shoulder ER AROM in scaption plane to at least 20 deg in order to demonstrate improved shoulder mobility for dressing and reaching 05/28/24: PROM ER to neutral per protocol 06/21/24: 45 deg ER in scaption AROM STG Duration 9 weeks MET [facility] Goal (LTG) Pt will improve L shoulder ER AROM in scaption plane to at least 30 deg in order to demonstrate improved shoulder mobility for dressing and reaching 06/21/24: 45 deg ER in scaption AROM 07/12/24: 50 deg ER in scaption plane LTG Duration 12 weeks MET 2 Impairment ROM Impairment L shoulder flexion Short Term Goal (STG) Pt will improve L shoulder flexion AROM in scaption plane to at least 90 deg in order to demonstrate improved shoulder mobility for dressing and reaching 05/28/24: PROM 90 deg 06/21/24: 104 deg flexion in scaption STG Duration 9 weeks MET [facility] Goal (LTG) Pt will improve L shoulder flexion AROM in scaption plane to at least 105 deg in order to demonstrate improved shoulder mobility for dressing and reaching 07/12/24: 105 deg flexion in scaption plane LTG Duration 12 weeks MET 1 Impairment quickdash Impairment 46 or 79.5% impaired Short Term Goal (STG) Pt will report <60% impairment in L shoulder use per Quickdash to demonstrate improved QOL 06/21/24: 27.5% impairment STG Duration 8 weeks [facility] Goal (LTG) Pt will report <60% impairment in L shoulder use per Quickdash to demonstrate improved QOL and activity tolerance 06/21/24: 27.5% impairment LTG Duration 12 weeks MET Assessment Summary Assessment AROM 110 deg end of session left shouder flexion end of session. Patient rates pain 0/ 10 end of session. Progressed to shoulder ER and IR with band from isomet reactives and 3 lb for supine and reclined flexion vs 2 lb added to HEP. Physical Therapy Plan Frequency and Duration Frequency of Treatment 1-2x/wk Duration of treatment (weeks) 12 Plan of Care Start Date 07/12/24 Plan of Care End Date 10/18/24 Next Visit Focus/Plan Next Note Type Treatment Note Next Visit Plan Update HEP ea session since 1x /wk progress up to standing w/ shoulder flexion resistance, review row/low row/high row and progress. progress resistance with ER/IR if able, stair slides as needed. revisit/ possibly back to wall for overhead press Manual: scapular mobility, GHJ mob if needed
--- NOTE | 2024-08-16 10:42 | PT.OTN ---
Current Diagnoses Primary osteoarthritis, left shoulder (08/16/24) Stiffness of left shoulder, not elsewhere classified (08/16/24) Weakness (08/16/24) Physical Therapy Treatment Note PT-OP-A Visit Information Start: 04/29/24 09:02 Freq: Status: Active Protocol: Document 08/16/24 08:09 AB (Rec: 08/16/24 10:42 AB [id number]) Out-Patient Physical Therapy Visit Information Visit Information Visit Type Treatment Note Visit Note 15 visits, DOS 04/25/24 Access code [email or web address] Visit Start Time 09:48 Visit Stop Time 10:34 Visit Number 22 Number of BOOTH MANAGER Visits 2 Evaluation Information Evaluation Date 04/29/24 Precautions Precautions 4 weeks: 05/23, 6 weeks: 06/06, 8 weeks: 06/20, 10 weeks: 07/04, 12 weeks: 07/18 Reverse TSA precautions (DOS 04/25/24): no IR/Ext, no Ext past neutral Sling for 6 weeks, PROM goal up to 90 deg at 6 weeks and ER to neutral per protocol, No AROM until 6 weeks PT-OP-B Current Condition Start: 04/29/24 09:02 Freq: Status: Active Protocol: Document 04/29/24 09:03 NM (Rec: 04/29/24 09:55 NM [id number]) Current Condition History of Current Condition Onset Date DOS 04/25/24 Current Complaints pain, sleeping, mobility, strength History of Current Condition Pt presents with L rTSA on . He had no complications . He presents with his partner , who helped provide hx. Pt has large red bruise on the L biceps muscle belly, unsure if due to surgery or when sleeping. Pt has been wearing the sling, which his partner has been helping assist. Prior to surgery, he was doing exercises from previous PT, but he got tremendous pain in L shoulder- got referral due to rotator cuff tear. Pt reports pain has been well managed, has not been on any pain meds but using cryotherapy 4-5x/day. He has most discomfort with shoulder in sleeping (bed and recliner) . Pt also has nocturia, so has been sleeping in recliner. Partner has moved coffee table , has night lights, removed obstacles. Next follow up with Dr. Yuan: 7/5 (take off dressing and momo). Has midline neck pain as well, hard to look up. Treatment Goals Patient/Caregiver Goals return to normal 2 handed life Prior Functional Status Baseline Function- ADL's Independent Baseline Function- Mobility Independent Current Functional Impairments (Reported) Functional Limitations- ADL's dressing, grooming Functional Limitations- Mobility/Gait reaching, lifting PT-OP-C Subjective Start: 04/29/24 09:02 Freq: Status: Active Protocol: Document 08/16/24 08:09 AB (Rec: 08/16/24 10:42 AB [id number]) OP-PT Subjective Patient Comments Patient Comments Patient reports 02/13 soreness GH area post exercises. 114 deg AROM left shoulder flexion start of session. PT-OP-E Functional Tests Start: 04/29/24 09:02 Freq: Status: Active Protocol: Document 04/29/24 09:03 NM (Rec: 04/29/24 09:55 NM [id number]) Functional Tests Apley's Scratch Test Action 1- Left N/A Action 1- Right opposite shoulder Action 2- Left N/A Action 2- Right T3 Action 3- Left N/A Action 3- Right T9 PT-OP-F Manual Assessment Start: 04/29/24 09:02 Freq: Status: Active Protocol: Document 04/29/24 09:03 NM (Rec: 04/29/24 16:42 NM [id number]) Manual Assessments Soft Tissue Assessment Soft Tissue Mobility Assessment Increased pectoralis muscle tightness, forward head and shoulders Joint Mobility Assessment Joint Mobility Assessment Right shoulder mobility limited in all planes on contralateral side to surgery PT-OP-J Posture/Palpation/Skin Start: 04/29/24 09:02 Freq: Status: Active Protocol: Document 04/29/24 09:03 NM (Rec: 04/29/24 16:42 NM [id number]) Posture Evaluation Position Standing Head/C-Spine Posture Forward Head T-Spine Posture Increased Kyphosis Shoulder Posture (L) Rounded,(R) Rounded,(L) Forward,(R) Forward Comments Posture Comments L arm positioned in abduction sling. Demonstrates increased foward flexed posture at trunk , neck, and shoulders Palpation Assessment Location L shoulder Palpation Details Tenderness reported along incision, anterior shoulder, AC joint Skin Assessment Incisional Assessment Incision Appearance/Comments Did not remove bandage; dressings clean/dry/intact with no signs of redness or infection Other Assessments Skin Assessment Comments Pt has large red/purple bruise along L biceps and anterior shoulder below surgical site PT-OP-K Range of Motion Start: 04/29/24 09:02 Freq: Status: Active Protocol: Document 07/12/24 10:32 NM (Rec: 07/12/24 11:17 NM [id number]) Shoulder Goniometric Range of Motion Shoulder L AROM Flexion 105 External Rotation at 0 degrees Abduction 50 Comments 06/07/24: AAROM 100 deg, AROM 90 deg in supine in scaption 06/21/24: 104 deg flexion in scaption, 45 deg ER in scaption 07/12/24: 105 deg fwd flexion in scaption (110 deg end of session), 50 deg ER in scaption; pain free for all PT-OP-M Strength Start: 04/29/24 09:02 Freq: Status: Active Protocol: Document 07/12/24 10:32 NM (Rec: 07/12/24 11:17 NM [id number]) Shoulder Strength Shoulder Manual Muscle Testing Left Flexion 4- Good- External Rotation 4- Good- Comments IE: Did not assess due to surgical precautions 05/28/24: Did not assess due to surgical precautions 06/21/24: full available ROM against gravity without resistance or pain 07/12/24: 4-/5 for all; pain free; able to perform shoulder flex w/ 1# db in supine PT-OP-Q Treatments Start: 04/29/24 09:02 Freq: Status: Active Protocol: Document 08/16/24 08:09 AB (Rec: 08/16/24 10:42 AB [id number]) Therapeutic Exercises Supine Exercises shoulder press Side bilateral Resistance 3 lb Reps/Minutes 10 X1 shoulder flexion Supine Exercise Name HEP Side left Resistance 3# to HEP Reps/Minutes X10 Comments monitoed for pain Standing Exercises high row Standing Exercise Name verbal and visual cues HEP Side bilateral Resistance level 2 band Reps/Minutes X15 Comments with step back and squeeze overhead press Side bilateral Reps/Minutes X5 Comments minimal AROM row Standing Exercise Name Row Side bilateral Resistance level 1 band Reps/Minutes X 15 Row standard Row Rail slide Side left Equipment Used railing Reps/Minutes one minute Comments Verbal and visual cues, patient ed to perform pain free isometrics Standing Exercise Name HEP1. ER walkout, 2. IR walkouts Side left Resistance 1 level 1 band Equipment Used towel roll in between body Reps/Minutes X15 each Other Exercises reclined AAROM Other Exercise Name reclined flexion HEP Resistance 3 lb ( to HEP) Reps/Minutes attempted Comments unable, likely due to fatigue Manual Therapy Treatment Consent Patient gave verbal consent for manual Yes treatment Soft Tissue Mobilization periscapulars Body Location rhomboids, LS, UT, lat Mobilization Type Cross-Friction,Rolling Intensity/Depth Superficial Body Position Sidelying L arm Body Location pec near axilla, biceps Mobilization Type Cross-Friction,Rolling, Sustained Pressure Intensity/Depth Moderate Body Position Hooklying Comments Tightness at L biceps, reduced with mobilization Joint Mobilizations L scapulothoracic Direction into depression and adduction Grade III Body Position Sidelying Reps/Duration 10 ea PT-OP-T Assessment and Plan Start: 04/29/24 09:02 Freq: Status: Active Protocol: Document 08/16/24 08:09 AB (Rec: 08/16/24 10:42 AB [id number]) Physical Therapy Assessment Goals 6 Impairment ADLs Impairment unable to perform ADLs White Shoe Examiner Goal (LTG) Pt will report that he is able to perform all dressing and grooming per PLOF without limitation due to L shoulder or without increase in baseline pain 06/21/24: pt continues to have limitations in dressing 07/12/24: pt reports limitations with drying back and donning/ doffing jacket; no other limitations with dressing LTG Duration 12 weeks PARTIALLY MET 5 Impairment HEP Impairment not performing HEP Short Term Goal (STG) Pt will report compliance with HEP at least 3x/wk in order to maximize progression with PT 05/28/24: performs daily STG Duration 6 weeks [facility] Goal (LTG) Pt will report compliance with HEP at least 3x/wk in order to demonstrate smooth transition into maintenance program 07/12/24: pt performing HEP as prescribed at least 3x/wk LTG Duration 12 weeks MET 4 Impairment strength Impairment L shoulder MMT not tested due to precautions Short Term Goal (STG) Pt will improve L shoulder global strength to at least 4- /5 in order to demonstrate improved strength for ADLs/ activities 05/28/24: not tested due to precautions 06/21/24: 3/5, able to achieve ROM w/o resistance 07/12/24: 4-/5 for flex and ER w /o pain STG Duration 9 weeks MET [facility] Goal (LTG) Pt will improve L shoulder global strength to at least 4/ 5 in order to demonstrate improved strength for ADLs/ activities 07/12/24: 4-/5 for flex and ER w /o pain LTG Duration 12 weeks PROGRESSING 3 Impairment ROM Impairment L shoulder ER Short Term Goal (STG) Pt will improve L shoulder ER AROM in scaption plane to at least 20 deg in order to demonstrate improved shoulder mobility for dressing and reaching 05/28/24: PROM ER to neutral per protocol 06/21/24: 45 deg ER in scaption AROM STG Duration 9 weeks MET [facility] Goal (LTG) Pt will improve L shoulder ER AROM in scaption plane to at least 30 deg in order to demonstrate improved shoulder mobility for dressing and reaching 06/21/24: 45 deg ER in scaption AROM 07/12/24: 50 deg ER in scaption plane LTG Duration 12 weeks MET 2 Impairment ROM Impairment L shoulder flexion Short Term Goal (STG) Pt will improve L shoulder flexion AROM in scaption plane to at least 90 deg in order to demonstrate improved shoulder mobility for dressing and reaching 05/28/24: PROM 90 deg 06/21/24: 104 deg flexion in scaption STG Duration 9 weeks MET White Shoe Examiner Goal (LTG) Pt will improve L shoulder flexion AROM in scaption plane to at least 105 deg in order to demonstrate improved shoulder mobility for dressing and reaching 07/12/24: 105 deg flexion in scaption plane LTG Duration 12 weeks MET 1 Impairment quickdash Impairment 46 or 79.5% impaired Short Term Goal (STG) Pt will report <60% impairment in L shoulder use per Quickdash to demonstrate improved QOL 06/21/24: 27.5% impairment STG Duration 8 weeks White Shoe Examiner Goal (LTG) Pt will report <60% impairment in L shoulder use per Quickdash to demonstrate improved QOL and activity tolerance 06/21/24: 27.5% impairment LTG Duration 12 weeks MET Assessment Summary Assessment 119 deg AROM left shoulder flexion end, rating pain 0/10 end of session. Physical Therapy Plan Frequency and Duration Frequency of Treatment 1-2x/wk Duration of treatment (weeks) 12 Plan of Care Start Date 07/12/24 Plan of Care End Date 10/18/24 Next Visit Focus/Plan Next Note Type Progress Note Next Visit Plan Update HEP ea session since 1x /wk progress up to standing w/ shoulder flexion resistance, review row/low row/high row and progress. progress resistance with ER/IR if able, stair slides as needed. revisit/ possibly back to wall for overhead press Manual: scapular mobility, GHJ mob if needed
--- NOTE | 2024-08-23 12:57 | PT.OTN ---
Current Diagnoses Primary osteoarthritis, left shoulder (08/23/24) Stiffness of left shoulder, not elsewhere classified (08/23/24) Weakness (08/23/24) Physical Therapy Treatment Note PT-OP-A Visit Information Start: 04/29/24 09:02 Freq: Status: Active Protocol: Document 08/23/24 09:39 NM (Rec: 08/23/24 10:41 NM [id number]) Out-Patient Physical Therapy Visit Information Visit Information Visit Type Treatment Note Visit Note 15 visits, DOS 04/25/24 Access code [email or web address] Visit Start Time 09:43 Visit Stop Time 10:30 Visit Number 23 Evaluation Information Evaluation Date 04/29/24 Precautions Precautions 4 weeks: 05/23, 6 weeks: 06/06, 8 weeks: 06/20, 10 weeks: 07/04, 12 weeks: 07/18 Reverse TSA precautions (DOS 04/25/24): no IR/Ext, no Ext past neutral Sling for 6 weeks, PROM goal up to 90 deg at 6 weeks and ER to neutral per protocol, No AROM until 6 weeks PT-OP-B Current Condition Start: 04/29/24 09:02 Freq: Status: Active Protocol: Document 04/29/24 09:03 NM (Rec: 04/29/24 09:55 NM [id number]) Current Condition History of Current Condition Onset Date DOS 04/25/24 Current Complaints pain, sleeping, mobility, strength History of Current Condition Pt presents with L rTSA on . He had no complications . He presents with his partner , who helped provide hx. Pt has large red bruise on the L biceps muscle belly, unsure if due to surgery or when sleeping. Pt has been wearing the sling, which his partner has been helping assist. Prior to surgery, he was doing exercises from previous PT, but he got tremendous pain in L shoulder- got referral due to rotator cuff tear. Pt reports pain has been well managed, has not been on any pain meds but using cryotherapy 4-5x/day. He has most discomfort with shoulder in sleeping (bed and recliner) . Pt also has nocturia, so has been sleeping in recliner. Partner has moved coffee table , has night lights, removed obstacles. Next follow up with Dr. Yuan: 05/10 (take off dressing and momo). Has midline neck pain as well, hard to look up. Treatment Goals Patient/Caregiver Goals return to normal 2 handed life Prior Functional Status Baseline Function- ADL's Independent Baseline Function- Mobility Independent Current Functional Impairments (Reported) Functional Limitations- ADL's dressing, grooming Functional Limitations- Mobility/Gait reaching, lifting PT-OP-C Subjective Start: 04/29/24 09:02 Freq: Status: Active Protocol: Document 08/23/24 09:39 NM (Rec: 08/23/24 10:41 NM [id number]) OP-PT Subjective Patient Comments Patient Comments Pt reports has less soreness with exercises. Pt repots no pain in L shoulder. Pt reports doing HEP 3-4x/day, no trouble with exercises. Sleeping more on L side, not bothering his shoulder. Reports no impairments. Partner reports does not let pt lift anything heavy, aware of lifting limits. Able to lift dishes in cupboard PT-OP-E Functional Tests Start: 04/29/24 09:02 Freq: Status: Active Protocol: Document 04/29/24 09:03 NM (Rec: 04/29/24 09:55 NM [id number]) Functional Tests Apley's Scratch Test Action 1- Left N/A Action 1- Right opposite shoulder Action 2- Left N/A Action 2- Right T3 Action 3- Left N/A Action 3- Right T9 PT-OP-F Manual Assessment Start: 04/29/24 09:02 Freq: Status: Active Protocol: Document 04/29/24 09:03 NM (Rec: 04/29/24 16:42 NM [id number]) Manual Assessments Soft Tissue Assessment Soft Tissue Mobility Assessment Increased pectoralis muscle tightness, forward head and shoulders Joint Mobility Assessment Joint Mobility Assessment Right shoulder mobility limited in all planes on contralateral side to surgery PT-OP-J Posture/Palpation/Skin Start: 04/29/24 09:02 Freq: Status: Active Protocol: Document 04/29/24 09:03 NM (Rec: 04/29/24 16:42 NM [id number]) Posture Evaluation Position Standing Head/C-Spine Posture Forward Head T-Spine Posture Increased Kyphosis Shoulder Posture (L) Rounded,(R) Rounded,(L) Forward,(R) Forward Comments Posture Comments L arm positioned in abduction sling. Demonstrates increased foward flexed posture at trunk , neck, and shoulders Palpation Assessment Location L shoulder Palpation Details Tenderness reported along incision, anterior shoulder, AC joint Skin Assessment Incisional Assessment Incision Appearance/Comments Did not remove bandage; dressings clean/dry/intact with no signs of redness or infection Other Assessments Skin Assessment Comments Pt has large red/purple bruise along L biceps and anterior shoulder below surgical site PT-OP-K Range of Motion Start: 04/29/24 09:02 Freq: Status: Active Protocol: Document 08/23/24 09:39 NM (Rec: 08/23/24 10:41 NM [id number]) Shoulder Goniometric Range of Motion Shoulder L AROM Flexion 110 External Rotation at 0 degrees Abduction 50 Comments 06/07/24: AAROM 100 deg, AROM 90 deg in supine in scaption 06/21/24: 104 deg flexion in scaption, 45 deg ER in scaption 07/12/24: 105 deg fwd flexion in scaption (110 deg end of session), 50 deg ER in scaption; pain free for all PT-OP-M Strength Start: 04/29/24 09:02 Freq: Status: Active Protocol: Document 08/23/24 09:39 NM (Rec: 08/23/24 10:41 NM [id number]) Shoulder Strength Shoulder Manual Muscle Testing Left Flexion 4 Good External Rotation 4- Good- Comments IE: Did not assess due to surgical precautions 05/28/24: Did not assess due to surgical precautions 06/21/24: full available ROM against gravity without resistance or pain 07/12/24: 4-/5 for all; pain free; able to perform shoulder flex w/ 1# db in supine 08/23/24: 4/5 flexion, 4-/5 ER ; able to perform shoulder flexion with 3# in supine and standing PT-OP-Q Treatments Start: 04/29/24 09:02 Freq: Status: Active Protocol: Document 08/23/24 09:39 NM (Rec: 08/23/24 10:41 NM [id number]) Therapeutic Exercises Supine Exercises protraction Supine Exercise Name press Side bilateral Resistance AROM > 2# Reps/Minutes 3x10 Comments cued initially for form shoulder press Supine Exercise Name HEP Side bilateral Resistance 4# db Reps/Minutes 2x10 Sidelying Exercises scapular clock Sidelying Exercise Name 12, 9, 6 o'clock Side left Reps/Minutes 10 external rotation Sidelying Exercise Name AROM HEP Side left Resistance 1# Equipment Used towel roll Reps/Minutes 2x10 Comments VC to hold end rom, control w/ lowering Standing Exercises shoulder flexion Standing Exercise Name usually performed reclined Side left Resistance 3# Reps/Minutes 10 Other Exercises Shoulder ER/IR Other Exercise Name HEP review Side left Resistance level one band Reps/Minutes IR 3x10 (2x10 HEP); ER 1x10 Comments ER challenging Manual Therapy Treatment Consent Patient gave verbal consent for manual Yes treatment Soft Tissue Mobilization periscapulars Body Location rhomboids, LS, UT, lat Mobilization Type Cross-Friction,Rolling Intensity/Depth Superficial Body Position Sidelying L arm Body Location pec near axilla, biceps Mobilization Type Cross-Friction,Rolling, Sustained Pressure Intensity/Depth Moderate Body Position Hooklying Comments Tightness at L biceps, reduced with mobilization Joint Mobilizations L scapulothoracic Direction into depression and adduction Grade III Body Position Sidelying Reps/Duration 15 ea PT-OP-T Assessment and Plan Start: 04/29/24 09:02 Freq: Status: Active Protocol: Document 08/23/24 09:39 NM (Rec: 08/23/24 10:41 NM [id number]) Physical Therapy Assessment Goals 6 Impairment ADLs Impairment unable to perform ADLs Snf Goal (LTG) Pt will report that he is able to perform all dressing and grooming per PLOF without limitation due to L shoulder or without increase in baseline pain 06/21/24: pt continues to have limitations in dressing 07/12/24: pt reports limitations with drying back and donning/ doffing jacket; no other limitations with dressing 08/23/24: pt reports that he is able to get his jacket on/ off better LTG Duration 12 weeks PARTIALLY MET; PROGRESSING 08/23 5 Impairment HEP Impairment not performing HEP Short Term Goal (STG) Pt will report compliance with HEP at least 3x/wk in order to maximize progression with PT 05/28/24: performs daily STG Duration 6 weeks Cabin Agent Goal (LTG) Pt will report compliance with HEP at least 3x/wk in order to demonstrate smooth transition into maintenance program 07/12/24: pt performing HEP as prescribed at least 3x/wk LTG Duration 12 weeks MET 4 Impairment strength Impairment L shoulder MMT not tested due to precautions Short Term Goal (STG) Pt will improve L shoulder global strength to at least 4- /5 in order to demonstrate improved strength for ADLs/ activities 05/28/24: not tested due to precautions 06/21/24: 3/5, able to achieve ROM w/o resistance 07/12/24: 4-/5 for flex and ER w /o pain STG Duration 9 weeks MET Cabin Agent Goal (LTG) Pt will improve L shoulder global strength to at least 4/ 5 in order to demonstrate improved strength for ADLs/ activities 07/12/24: 4-/5 for flex and ER w /o pain 08/23/24: 4/5 flexion, 4-/5 ER LTG Duration 12 weeks PROGRESSING; PARTIALLY MET 08/23 3 Impairment ROM Impairment L shoulder ER Short Term Goal (STG) Pt will improve L shoulder ER AROM in scaption plane to at least 20 deg in order to demonstrate improved shoulder mobility for dressing and reaching 05/28/24: PROM ER to neutral per protocol 06/21/24: 45 deg ER in scaption AROM STG Duration 9 weeks MET Snf Goal (LTG) Pt will improve L shoulder ER AROM in scaption plane to at least 30 deg in order to demonstrate improved shoulder mobility for dressing and reaching 06/21/24: 45 deg ER in scaption AROM 08/23/24, 07/12/24: 50 deg ER in scaption plane LTG Duration 12 weeks MET 2 Impairment ROM Impairment L shoulder flexion Short Term Goal (STG) Pt will improve L shoulder flexion AROM in scaption plane to at least 90 deg in order to demonstrate improved shoulder mobility for dressing and reaching 05/28/24: PROM 90 deg 06/21/24: 104 deg flexion in scaption STG Duration 9 weeks MET Cabin Agent Goal (LTG) Pt will improve L shoulder flexion AROM in scaption plane to at least 105 deg in order to demonstrate improved shoulder mobility for dressing and reaching 07/12/24: 105 deg flexion in scaption plane 08/23/24: 110 deg flexion in scaption plane LTG Duration 12 weeks MET 1 Impairment quickdash Impairment 46 or 79.5% impaired Short Term Goal (STG) Pt will report <60% impairment in L shoulder use per Quickdash to demonstrate improved QOL 06/21/24: 27.5% impairment STG Duration 8 weeks Snf Goal (LTG) Pt will report <60% impairment in L shoulder use per Quickdash to demonstrate improved QOL and activity tolerance 06/21/24: 27.5% impairment 08/23/24: 11.4% impairment LTG Duration 12 weeks MET Assessment Summary Assessment Pt reports no L shoulder pain at end of session. Has 110 deg L shoulder flexion AROM in scaption, 50 deg L shoulder ER in scaption. Progressed numbner of reps for shoulder IR with band, cueing for scapular position, control and limit anterior humeral positioning. Standing isotonic shoulder ER challenging, too many compensations; able to perform in sidelying with increased reps with 1#. Trialed standing shoulder flexion in scaption with 3# dumbbell; fatiguing for pt. Pt would benefit from skilled PT for progressive L shoulder strengthening and AROM per protocol in order to improve ability to perform lifting and reaching ADLs, dressing/ grooming ADLs. Physical Therapy Plan Frequency and Duration Frequency of Treatment 1-2x/wk Duration of treatment (weeks) 12 Plan of Care Start Date 07/12/24 Plan of Care End Date 10/18/24 Therapeutic Interventions Therapeutic Interventions Gait Training,Home Exercise Program,Joint Mobilizations, Manual Therapy,Neuromuscular Re-education,Orthotic/ Prosthetic Management,Patient/ Caregiver Education,Self-Care/ Home Management,Sensory Integration,Soft Tissue Mobilization,Taping, Therapeutic Activities, Therapeutic Exercises Modalities Cold Pack/Ice Massage,Electric Stimulation,Hot Packs, Ultrasound Next Visit Focus/Plan Next Note Type Treatment Note Next Visit Plan Update HEP ea session since 1x /wk Progress up to standing w/ shoulder flexion resistance (2 -3# and inc # reps as able), review row/low row/high row and progress resistance. progress resistance with ER/IR if able, stair slides as needed. Trial banded protraction. Work thoracic mobility Manual: scapular mobility, GHJ mob if needed
--- NOTE | 2024-08-30 10:41 | PT.OTN ---
Current Diagnoses Primary osteoarthritis, left shoulder (08/30/24) Stiffness of left shoulder, not elsewhere classified (08/30/24) Weakness (08/30/24) Physical Therapy Treatment Note PT-OP-A Visit Information Start: 04/29/24 09:02 Freq: Status: Active Protocol: Document 08/30/24 08:12 AB (Rec: 08/30/24 10:41 AB [id number]) Out-Patient Physical Therapy Visit Information Visit Information Visit Type Treatment Note Visit Note 15 visits, DOS 04/25/24 Access code [email or web address] Visit Start Time 09:48 Visit Stop Time 10:35 Visit Number 24 Number of MACHINERY RIGGER Visits 1 Evaluation Information Evaluation Date 04/29/24 Precautions Precautions 4 weeks: 05/23, 6 weeks: 06/06, 8 weeks: 06/20, 10 weeks: 07/04, 12 weeks: 07/18 Reverse TSA precautions (DOS 04/25/24): no IR/Ext, no Ext past neutral Sling for 6 weeks, PROM goal up to 90 deg at 6 weeks and ER to neutral per protocol, No AROM until 6 weeks PT-OP-B Current Condition Start: 04/29/24 09:02 Freq: Status: Active Protocol: Document 04/29/24 09:03 NM (Rec: 04/29/24 09:55 NM [id number]) Current Condition History of Current Condition Onset Date DOS 04/25/24 Current Complaints pain, sleeping, mobility, strength History of Current Condition Pt presents with L rTSA on . He had no complications . He presents with his partner , who helped provide hx. Pt has large red bruise on the L biceps muscle belly, unsure if due to surgery or when sleeping. Pt has been wearing the sling, which his partner has been helping assist. Prior to surgery, he was doing exercises from previous PT, but he got tremendous pain in L shoulder- got referral due to rotator cuff tear. Pt reports pain has been well managed, has not been on any pain meds but using cryotherapy 4-5x/day. He has most discomfort with shoulder in sleeping (bed and recliner) . Pt also has nocturia, so has been sleeping in recliner. Partner has moved coffee table , has night lights, removed obstacles. Next follow up with Dr. Yuan: 7/5 (take off dressing and momo). Has midline neck pain as well, hard to look up. Treatment Goals Patient/Caregiver Goals return to normal 2 handed life Prior Functional Status Baseline Function- ADL's Independent Baseline Function- Mobility Independent Current Functional Impairments (Reported) Functional Limitations- ADL's dressing, grooming Functional Limitations- Mobility/Gait reaching, lifting PT-OP-C Subjective Start: 04/29/24 09:02 Freq: Status: Active Protocol: Document 08/30/24 08:12 AB (Rec: 08/30/24 10:41 AB [id number]) OP-PT Subjective Patient Comments Patient Comments Patient reports he is doing, less than 6 lb of weight, able to sleep on it. Patient reports he is able to sleep on the shoulder. AROM 119 deg flexion start of session. PT-OP-E Functional Tests Start: 04/29/24 09:02 Freq: Status: Active Protocol: Document 04/29/24 09:03 NM (Rec: 04/29/24 09:55 NM [id number]) Functional Tests Apley's Scratch Test Action 1- Left N/A Action 1- Right opposite shoulder Action 2- Left N/A Action 2- Right T3 Action 3- Left N/A Action 3- Right T9 PT-OP-F Manual Assessment Start: 04/29/24 09:02 Freq: Status: Active Protocol: Document 04/29/24 09:03 NM (Rec: 04/29/24 16:42 NM [id number]) Manual Assessments Soft Tissue Assessment Soft Tissue Mobility Assessment Increased pectoralis muscle tightness, forward head and shoulders Joint Mobility Assessment Joint Mobility Assessment Right shoulder mobility limited in all planes on contralateral side to surgery PT-OP-J Posture/Palpation/Skin Start: 04/29/24 09:02 Freq: Status: Active Protocol: Document 04/29/24 09:03 NM (Rec: 04/29/24 16:42 NM [id number]) Posture Evaluation Position Standing Head/C-Spine Posture Forward Head T-Spine Posture Increased Kyphosis Shoulder Posture (L) Rounded,(R) Rounded,(L) Forward,(R) Forward Comments Posture Comments L arm positioned in abduction sling. Demonstrates increased foward flexed posture at trunk , neck, and shoulders Palpation Assessment Location L shoulder Palpation Details Tenderness reported along incision, anterior shoulder, AC joint Skin Assessment Incisional Assessment Incision Appearance/Comments Did not remove bandage; dressings clean/dry/intact with no signs of redness or infection Other Assessments Skin Assessment Comments Pt has large red/purple bruise along L biceps and anterior shoulder below surgical site PT-OP-K Range of Motion Start: 04/29/24 09:02 Freq: Status: Active Protocol: Document 08/23/24 09:39 NM (Rec: 08/23/24 10:41 NM [id number]) Shoulder Goniometric Range of Motion Shoulder L AROM Flexion 110 External Rotation at 0 degrees Abduction 50 Comments 06/07/24: AAROM 100 deg, AROM 90 deg in supine in scaption 06/21/24: 104 deg flexion in scaption, 45 deg ER in scaption 07/12/24: 105 deg fwd flexion in scaption (110 deg end of session), 50 deg ER in scaption; pain free for all PT-OP-M Strength Start: 04/29/24 09:02 Freq: Status: Active Protocol: Document 08/23/24 09:39 NM (Rec: 08/23/24 10:41 NM [id number]) Shoulder Strength Shoulder Manual Muscle Testing Left Flexion 4 Good External Rotation 4- Good- Comments IE: Did not assess due to surgical precautions 05/28/24: Did not assess due to surgical precautions 06/21/24: full available ROM against gravity without resistance or pain 07/12/24: 4-/5 for all; pain free; able to perform shoulder flex w/ 1# db in supine 08/23/24: 4/5 flexion, 4-/5 ER ; able to perform shoulder flexion with 3# in supine and standing PT-OP-Q Treatments Start: 04/29/24 09:02 Freq: Status: Active Protocol: Document 08/30/24 08:12 AB (Rec: 08/30/24 10:41 AB [id number]) Therapeutic Exercises Supine Exercises protraction Supine Exercise Name press Side bilateral Resistance level 1 band HEP Reps/Minutes 2 X15 Comments VC for band positioning Sidelying Exercises open book Sidelying Exercise Name HEP Side bilateral Reps/Minutes X5 each side for 5 breaths Comments Verbal cues Standing Exercises shoulder flexion Standing Exercise Name usually performed reclined Side bilateral Resistance 3# 1# right HEP) Reps/Minutes 10 high row Standing Exercise Name verbal and visual cues HEP Side bilateral Resistance level 3band HEP Reps/Minutes X15 X2 Comments Verbal cues and tactile cues row Standing Exercise Name Row Side bilateral Resistance level 3 band HEP Reps/Minutes X 15 X2 Comments verbal and tactile cues for standard row PT-OP-T Assessment and Plan Start: 04/29/24 09:02 Freq: Status: Active Protocol: Document 08/30/24 08:12 AB (Rec: 08/30/24 10:41 AB [id number]) Physical Therapy Assessment Goals 6 Impairment ADLs Impairment unable to perform ADLs Residential Goal (LTG) Pt will report that he is able to perform all dressing and grooming per PLOF without limitation due to L shoulder or without increase in baseline pain 06/21/24: pt continues to have limitations in dressing 07/12/24: pt reports limitations with drying back and donning/ doffing jacket; no other limitations with dressing 08/23/24: pt reports that he is able to get his jacket on/ off better LTG Duration 12 weeks PARTIALLY MET; PROGRESSING 08/23 5 Impairment HEP Impairment not performing HEP Short Term Goal (STG) Pt will report compliance with HEP at least 3x/wk in order to maximize progression with PT 05/28/24: performs daily STG Duration 6 weeks Director Product Safety Goal (LTG) Pt will report compliance with HEP at least 3x/wk in order to demonstrate smooth transition into maintenance program 07/12/24: pt performing HEP as prescribed at least 3x/wk LTG Duration 12 weeks MET 4 Impairment strength Impairment L shoulder MMT not tested due to precautions Short Term Goal (STG) Pt will improve L shoulder global strength to at least 4- /5 in order to demonstrate improved strength for ADLs/ activities 05/28/24: not tested due to precautions 06/21/24: 3/5, able to achieve ROM w/o resistance 07/12/24: 4-/5 for flex and ER w /o pain STG Duration 9 weeks MET Residential Goal (LTG) Pt will improve L shoulder global strength to at least 4/ 5 in order to demonstrate improved strength for ADLs/ activities 07/12/24: 4-/5 for flex and ER w /o pain 08/23/24: 4/5 flexion, 4-/5 ER LTG Duration 12 weeks PROGRESSING; PARTIALLY MET 08/23 3 Impairment ROM Impairment L shoulder ER Short Term Goal (STG) Pt will improve L shoulder ER AROM in scaption plane to at least 20 deg in order to demonstrate improved shoulder mobility for dressing and reaching 05/28/24: PROM ER to neutral per protocol 06/21/24: 45 deg ER in scaption AROM STG Duration 9 weeks MET Director Product Safety Goal (LTG) Pt will improve L shoulder ER AROM in scaption plane to at least 30 deg in order to demonstrate improved shoulder mobility for dressing and reaching 06/21/24: 45 deg ER in scaption AROM 08/23/24, 07/12/24: 50 deg ER in scaption plane LTG Duration 12 weeks MET 2 Impairment ROM Impairment L shoulder flexion Short Term Goal (STG) Pt will improve L shoulder flexion AROM in scaption plane to at least 90 deg in order to demonstrate improved shoulder mobility for dressing and reaching 05/28/24: PROM 90 deg 06/21/24: 104 deg flexion in scaption STG Duration 9 weeks MET Director Product Safety Goal (LTG) Pt will improve L shoulder flexion AROM in scaption plane to at least 105 deg in order to demonstrate improved shoulder mobility for dressing and reaching 07/12/24: 105 deg flexion in scaption plane 08/23/24: 110 deg flexion in scaption plane LTG Duration 12 weeks MET 1 Impairment quickdash Impairment 46 or 79.5% impaired Short Term Goal (STG) Pt will report <60% impairment in L shoulder use per Quickdash to demonstrate improved QOL 06/21/24: 27.5% impairment STG Duration 8 weeks Director Product Safety Goal (LTG) Pt will report <60% impairment in L shoulder use per Quickdash to demonstrate improved QOL and activity tolerance 06/21/24: 27.5% impairment 08/23/24: 11.4% impairment LTG Duration 12 weeks MET Assessment Summary Assessment Patient reports having no shoulder pain left shoulder end of session 122 deg flexion /scaption pattern end of session. HEP progressed and condensed. Physical Therapy Plan Frequency and Duration Frequency of Treatment 1-2x/wk Duration of treatment (weeks) 12 Plan of Care Start Date 07/12/24 Plan of Care End Date 10/18/24 Next Visit Focus/Plan Next Note Type Discharge Summary Next Visit Plan Possibly discharge, condense HEP. Update HEP ea session since 1x/wk Progress resistance with ER/ IR if able, stair slides as needed. Manual: scapular mobility, GHJ mob if needed
--- NOTE | 2024-09-13 10:55 | PT.OPPN ---
Current Diagnoses Primary osteoarthritis, left shoulder (09/13/24) Stiffness of left shoulder, not elsewhere classified (09/13/24) Weakness (09/13/24) Physical Therapy Progress Note PT-OP-A Visit Information Start: 04/29/24 09:02 Freq: Status: Active Protocol: Document 09/13/24 09:40 NM (Rec: 09/13/24 10:43 NM [id number]) Out-Patient Physical Therapy Visit Information Visit Information Visit Type Discharge Summary Visit Note 15 visits, DOS 04/25/24 Access code [email or web address] Visit Start Time 09:45 Visit Stop Time 10:26 Visit Number 25 Evaluation Information Evaluation Date 04/29/24 Precautions Precautions 4 weeks: 05/23, 6 weeks: 06/06, 8 weeks: 06/20, 10 weeks: 07/04, 12 weeks: 07/18 Reverse TSA precautions (DOS 04/25/24): no IR/Ext, no Ext past neutral Sling for 6 weeks, PROM goal up to 90 deg at 6 weeks and ER to neutral per protocol, No AROM until 6 weeks PT-OP-B Current Condition Start: 04/29/24 09:02 Freq: Status: Active Protocol: Document 04/29/24 09:03 NM (Rec: 04/29/24 09:55 NM [id number]) Current Condition History of Current Condition Onset Date DOS 04/25/24 Current Complaints pain, sleeping, mobility, strength History of Current Condition Pt presents with L rTSA on . He had no complications . He presents with his partner , who helped provide hx. Pt has large red bruise on the L biceps muscle belly, unsure if due to surgery or when sleeping. Pt has been wearing the sling, which his partner has been helping assist. Prior to surgery, he was doing exercises from previous PT, but he got tremendous pain in L shoulder- got referral due to rotator cuff tear. Pt reports pain has been well managed, has not been on any pain meds but using cryotherapy 4-5x/day. He has most discomfort with shoulder in sleeping (bed and recliner) . Pt also has nocturia, so has been sleeping in recliner. Partner has moved coffee table , has night lights, removed obstacles. Next follow up with Dr. Yuan: 05/10 (take off dressing and momo). Has midline neck pain as well, hard to look up. Treatment Goals Patient/Caregiver Goals return to normal 2 handed life Prior Functional Status Baseline Function- ADL's Independent Baseline Function- Mobility Independent Current Functional Impairments (Reported) Functional Limitations- ADL's dressing, grooming Functional Limitations- Mobility/Gait reaching, lifting PT-OP-C Subjective Start: 04/29/24 09:02 Freq: Status: Active Protocol: Document 09/13/24 09:40 NM (Rec: 09/13/24 10:43 NM [id number]) OP-PT Subjective Patient Comments Patient Comments Pt reports only difficulty with drying back but states that will plan to have partner help. Will be following up with Dr. Hunter in 1 year. Pt denies pain or discomfort in L shoulder at rest or with activity. Pt is compliant with 6# lifting precautions for 1 years. He is back to cooking and is back to doing small resistance lifting ADLs (e.g. dinner plates) without pain. No lifting more than 6# at this time per surgeon request. PT-OP-E Functional Tests Start: 04/29/24 09:02 Freq: Status: Active Protocol: Document 04/29/24 09:03 NM (Rec: 04/29/24 09:55 NM [id number]) Functional Tests Apley's Scratch Test Action 1: The subject is instructed to touch the opposite shoulder with his/her hand. This motion checks Glenohumeral adduction, internal rotation , horizontal adduction and scapular protraction Action 2: The subject is instructed to place his/her arm overhead and reach behind the neck to touch his/her upper back. This motion checks Glenohumeral abduction, external rotation and scapular upward rotation and elevation. Action 3: The subject puts his/her hand on the lower back and reaches upward as far as possible. This motion checks glenohumeral adduction, internal rotation and scapular retraction with downward rotation Action 1- Left N/A Action 1- Right opposite shoulder Action 2- Left N/A Action 2- Right T3 Action 3- Left N/A Action 3- Right T9 PT-OP-F Manual Assessment Start: 04/29/24 09:02 Freq: Status: Active Protocol: Document 04/29/24 09:03 NM (Rec: 04/29/24 16:42 NM [id number]) Manual Assessments Soft Tissue Assessment Soft Tissue Mobility Assessment Increased pectoralis muscle tightness, forward head and shoulders Joint Mobility Assessment Joint Mobility Assessment Right shoulder mobility limited in all planes on contralateral side to surgery PT-OP-J Posture/Palpation/Skin Start: 04/29/24 09:02 Freq: Status: Active Protocol: Document 04/29/24 09:03 NM (Rec: 04/29/24 16:42 NM [id number]) Posture Evaluation Position Standing Head/C-Spine Posture Forward Head T-Spine Posture Increased Kyphosis Shoulder Posture (L) Rounded,(R) Rounded,(L) Forward,(R) Forward Comments Posture Comments L arm positioned in abduction sling. Demonstrates increased foward flexed posture at trunk , neck, and shoulders Palpation Assessment Location L shoulder Palpation Details Tenderness reported along incision, anterior shoulder, AC joint Skin Assessment Incisional Assessment Incision Appearance/Comments Did not remove bandage; dressings clean/dry/intact with no signs of redness or infection Other Assessments Skin Assessment Comments Pt has large red/purple bruise along L biceps and anterior shoulder below surgical site PT-OP-K Range of Motion Start: 04/29/24 09:02 Freq: Status: Active Protocol: Document 09/13/24 09:40 NM (Rec: 09/13/24 10:43 NM [id number]) Shoulder Goniometric Range of Motion Shoulder Measured in Degrees L AROM Flexion 118 External Rotation at 0 degrees Abduction 60 Comments 06/07/24: AAROM 100 deg, AROM 90 deg in supine in scaption 06/21/24: 104 deg flexion in scaption, 45 deg ER in scaption 07/12/24: 105 deg fwd flexion in scaption (110 deg end of session), 50 deg ER in scaption; pain free for all 09/13/24: 118 deg flex in scpation, 60 deg ER PT-OP-M Strength Start: 04/29/24 09:02 Freq: Status: Active Protocol: Document 09/13/24 09:40 NM (Rec: 09/13/24 10:43 NM [id number]) Shoulder Strength Shoulder Manual Muscle Testing Left Flexion 4 Good External Rotation 4 Good Comments IE: Did not assess due to surgical precautions 05/28/24: Did not assess due to surgical precautions 06/21/24: full available ROM against gravity without resistance or pain 07/12/24: 4-/5 for all; pain free; able to perform shoulder flex w/ 1# db in supine 08/23/24: 4/5 flexion, 4-/5 ER ; able to perform shoulder flexion with 3# in supine and standing 09/13/24: 4/5 for both flex and ER; able to perform shoulder flex with 3# in standing PT-OP-T Assessment and Plan Start: 04/29/24 09:02 Freq: Status: Active Protocol: Document 09/13/24 09:40 NM (Rec: 09/13/24 10:43 NM [id number]) Physical Therapy Assessment Goals 6 Impairment ADLs Impairment unable to perform ADLs Workers Compensation Consultant Goal (LTG) Pt will report that he is able to perform all dressing and grooming per PLOF without limitation due to L shoulder or without increase in baseline pain 06/21/24: pt continues to have limitations in dressing 07/12/24: pt reports limitations with drying back and donning/ doffing jacket; no other limitations with dressing 08/23/24: pt reports that he is able to get his jacket on/ off better 09/13/24: pt reports no difficulty with dressing or grooming; limited only by rTSA precautions but partner helps and has been compliant with precautions LTG Duration 12 weeks MET 09/13/24 5 Impairment HEP Impairment not performing HEP Short Term Goal (STG) Pt will report compliance with HEP at least 3x/wk in order to maximize progression with PT 05/28/24: performs daily STG Duration 6 weeks Workers Compensation Consultant Goal (LTG) Pt will report compliance with HEP at least 3x/wk in order to demonstrate smooth transition into maintenance program 07/12/24: pt performing HEP as prescribed at least 3x/wk LTG Duration 12 weeks MET 4 Impairment strength Impairment L shoulder MMT not tested due to precautions Short Term Goal (STG) Pt will improve L shoulder global strength to at least 4- /5 in order to demonstrate improved strength for ADLs/ activities 05/28/24: not tested due to precautions 06/21/24: 3/5, able to achieve ROM w/o resistance 07/12/24: 4-/5 for flex and ER w /o pain STG Duration 9 weeks MET Senior Living Goal (LTG) Pt will improve L shoulder global strength to at least 4/ 5 in order to demonstrate improved strength for ADLs/ activities 07/12/24: 4-/5 for flex and ER w /o pain 08/23/24: 4/5 flexion, 4-/5 ER 09/13/24: 4/5 for flex and ER; can lift 3# wt for exercises and small household items without limitation LTG Duration 12 weeks MET 09/13 3 Impairment ROM Impairment L shoulder ER Short Term Goal (STG) Pt will improve L shoulder ER AROM in scaption plane to at least 20 deg in order to demonstrate improved shoulder mobility for dressing and reaching 05/28/24: PROM ER to neutral per protocol 06/21/24: 45 deg ER in scaption AROM STG Duration 9 weeks MET [facility] Living Goal (LTG) Pt will improve L shoulder ER AROM in scaption plane to at least 30 deg in order to demonstrate improved shoulder mobility for dressing and reaching 06/21/24: 45 deg ER in scaption AROM 08/23/24, 07/12/24: 50 deg ER in scaption plane LTG Duration 12 weeks MET 2 Impairment ROM Impairment L shoulder flexion Short Term Goal (STG) Pt will improve L shoulder flexion AROM in scaption plane to at least 90 deg in order to demonstrate improved shoulder mobility for dressing and reaching 05/28/24: PROM 90 deg 06/21/24: 104 deg flexion in scaption STG Duration 9 weeks MET Senior Living Goal (LTG) Pt will improve L shoulder flexion AROM in scaption plane to at least 105 deg in order to demonstrate improved shoulder mobility for dressing and reaching 07/12/24: 105 deg flexion in scaption plane 08/23/24: 110 deg flexion in scaption plane LTG Duration 12 weeks MET 1 Impairment quickdash Impairment 46 or 79.5% impaired Short Term Goal (STG) Pt will report <60% impairment in L shoulder use per Quickdash to demonstrate improved QOL 06/21/24: 27.5% impairment STG Duration 8 weeks Workers Compensation Consultant Goal (LTG) Pt will report <60% impairment in L shoulder use per Quickdash to demonstrate improved QOL and activity tolerance 06/21/24: 27.5% impairment 08/23/24: 11.4% impairment 09/13/24: 4.5% impairment LTG Duration 12 weeks MET Progress Towards Goals Progress Towards Goals Progressing Toward Goals,Goals Met Assessment Summary Assessment Pt has been seen x24 visits since initial evaluation in April 2024 s/p L rTSA. Pt is progressing well toward goals. His L shoulder flexion AROM is 118 deg or better with minimal compensations; L shoulder ER 60 deg in scapation. L shoulder strength improving; able to lift 3# weight during exercises and low weight household items without limitation or pain. Pt compliant with HEP and progressing through anterior deltoid strengthening program. He is also compliant with rTSA precautions and lifting limits still in place from surgeon. Pt reports minor limitations only with donning/ doffing jacket and grooming, but reports significant improvements since initial evaluation. Pt reports able to reach into cabinets and lift small objects. Still has lifting limit of 6# and no shoulder IR/ext restriction. Quickdash impairment score 4.5 % impaired, an improvement from last progress note by 7%. PT and pt discussed discharge from PT as pt reports financial constraints with continuing attendance even 1x/ wk and also reports that he is able to perform all ADLS/ IADLs without limitation; partner assists with performing ADLs/IADLs and lifting that pt currently unable to perform due to surgeon recommended precautions with lifting. PT issued and reviewed maintenance program with pt, providing notes and cues for pt to continue with at home for anterior deltoid strengthening and maintaining ROM. Pt and pt's partner informed to follow up with surgeon and surgeon's replacement if pt develops L shoulder pain or weakness or for new PT referral if pt wanting to tune up following discharge in future. Pt verbalizes understanding and will be discharged to maintenance program as able to return to all ADLs/IADLs per protocol recommendations. Physical Therapy Plan Frequency and Duration Frequency of Treatment 1-2x/wk Duration of treatment (weeks) 12 Plan of Care Start Date 07/12/24 Plan of Care End Date 10/18/24 Therapeutic Interventions Therapeutic Interventions Gait Training,Home Exercise Program,Joint Mobilizations, Manual Therapy,Neuromuscular Re-education,Orthotic/ Prosthetic Management,Patient/ Caregiver Education,Self-Care/ Home Management,Sensory Integration,Soft Tissue Mobilization,Taping, Therapeutic Activities, Therapeutic Exercises Modalities Cold Pack/Ice Massage,Electric Stimulation,Hot Packs, Ultrasound Discharge Physical Therapy Discharge Reasons Patient Request Discharge Comments Pt requesting discharge for financial reasons and goals met. Goals met and continuing to progress strengthening. compliant with HEP. Issued maintenence program. Pt still to follow up with surgeon in 1 year but educated to follow up sooner if develops pain or weakness. Next Visit Focus/Plan Next Note Type Discharge Summary Next Visit Plan discharge from PT
== END 2024-09-27 11:04 | disposition home or self-care (01) ==
LOC: PHYS 09:45
PROVIDERS: Family Provider Internal Medicine; PCP Internal Medicine; Referring Provider Orthopaedic Surgery; Visit Provider Orthopaedic Surgery
DX: M19.012 Primary osteoarthritis, left shoulder (principal); R53.1 Weakness; M25.612 Stiffness of left shoulder, not elsewhere classified
CPT/HCPCS: 97110; 97140; 97161; 97530

== ENCOUNTER → 2024-10-12 08:59 | Outpatient (CLI) | payer OTHER, SELFPAY ==
[2024-10-14 14:10] LABS: Fecal Immunochemical Test Negative (Negative)
== END ==
PROVIDERS: Family Provider Internal Medicine; PCP Internal Medicine; Referring Provider Internal Medicine; Visit Provider Internal Medicine
DX: Z12.11 Encounter for screening for malignant neoplasm of colon (principal)
CPT/HCPCS: 82274

== ENCOUNTER 2024-11-07 08:26 | Emergency (ER) | payer OTHER, SELFPAY ==
[2024-11-07 08:27] VITALS: BP 141/64; PULSE 64; RESP 13; TEMP 36.6; O2SAT 99; BMI 23.8
--- NOTE | 2024-11-07 08:37 | PC.NURSE ---
Dr. Nye in to perform scrotum exam.
--- NOTE | 2024-11-07 08:44 | ED.WOUNDLAC ---
HPI - Wound/Laceration General Chief Complaint: Wound/Laceration Stated Complaint: Scrotum bleeding Time Seen by Provider: 11/07/24 08:32 Source: patient Mode of arrival: Ambulatory History of Present Illness HPI narrative: 84-year-old male. Not on anticoagulation. Has a history of having his prostate removed. Has some incontinence of urine at baseline. Has had a ?mass? in the center of his scrotum for years. Had an ultrasound done many years ago and was told that it was a spermatocele. He was noticed that this mass has gotten larger over the past several years. This morning in the shower he noticed that there was blood both on the washcloth and on the floor of the shower. He noticed that he was bleeding from his scrotum. No pain. No change in urination. No fevers. No trauma that he knows of. Related Data Home Medications Medication Instructions Recorded Confirmed famotidine 20 mg tablet 20 mg PO QDAY ##0 02/28/18 10/21/24 doxylamine succinate 25 mg tablet 25 mg PO BEDTIME PRN Sleep 01/05/22 10/21/24 (Unisom (doxylamine)) magnesium 250 mg tablet 250 mg PO DAILY 01/05/22 10/21/24 multivitamin 1 tab PO DAILY 12/02/22 10/21/24 lutein 20 mg-zeaxanthin 1,000 mcg 2 cap PO DAILY 07/20/23 10/21/24 capsule fluticasone propionate 50 1 spray intranasal DAILY PRN 01/09/24 10/21/24 mcg/actuation nasal Seasonal allergies spray,suspension (Flonase Allergy Relief) naproxen sodium 220 mg capsule 220 mg PO DAILY PRN Pain 04/16/24 10/21/24 (Aleve) Previous Rx's Medication Instructions Recorded amlodipine 5 mg tablet 5 mg PO DAILY #90 tabs 12/20/23 atorvastatin 10 mg tablet 10 mg PO DAILY #90 tabs 02/08/24 Allergies Allergy/AdvReac Type Severity Reaction Status Date / Time rosuvastatin AdvReac Mild Joint Pain Verified 11/07/24 08:32 Review of Systems Review of Systems Narrative: See HPI Patient History Medical History Lipoma Arthritis Prostate cancer (2003) Seasonal allergies Essential hypertension History of colonic polyps BPPV (benign paroxysmal positional vertigo) History of prostate cancer Impaired fasting glucose Allergic rhinitis Do not resuscitate Gastroesophageal reflux disease without esophagitis Mixed hyperlipidemia ASA (stress urinary incontinence), male Actinic keratosis (~2020) Measles Chicken pox Vertigo History of urinary incontinence (~2003) GERD (gastroesophageal reflux disease) (~1976) Surgical History (Updated 04/16/24 @ 13:13 by Meghana Gerber RN) Hx of bilateral cataract extraction Anesthesia History of radical prostatectomy (~07/2004) History of inguinal hernia repair (~07/2004) History of inguinal hernia repair (~1971) Family History Father Cancer Mother Respiratory failure Brother History of elevated PSA Sister COPD (chronic obstructive pulmonary disease) Grandmother Stroke Other Family history non-contributory Social History marital status: number of children: 0 household members: spouse Smoking Status: Former smoker alcohol intake: current Type(s) of exercise: walking frequency: 3-4 times per week Smoking Status: Former smoker alcohol intake frequency: 0-2 drinks per day Exam Initial Vital Signs Initial Vital Signs: Vital Signs Temperature 97.8 F 11/07/24 08:27 Pulse Rate 64 11/07/24 08:27 Respiratory Rate 13 11/07/24 08:27 Blood Pressure 141/64 H 11/07/24 08:27 Pulse Oximetry 99 11/07/24 08:27 Oxygen Delivery Method Room Air 11/07/24 08:27 GI Inspection: normal to inspection and non-distended Other: External exam is unremarkable. Patient does have a palpable mass distinct of his testicles in his scrotum. He was a very small area of bleeding from the scrotum. No surrounding erythema. No bruising. No trauma noted. Skin Other: Small area of bleeding from the scrotum. Course Orders Ordered: ED Orders 11/07/24 08:43 US scrotum Stat Vital Signs Vital signs: Vital Signs - 8 hr 11/07/24 08:27 Temperature 97.8 F Pulse Rate 64 Respiratory Rate 13 Blood Pressure 141/64 H Pulse Oximetry 99 Oxygen Delivery Method Room Air MDM - Wound/Laceration Imaging Data scrotal US: Radiologist's Impression: PROCEDURE: US SCROTUM INDICATIONS: bleeding scrotal mass TECHNIQUE: Real-time scanning was performed of the scrotum and testicles, with image documentation. Color and pulse Doppler interrogation was performed of both testicles. COMPARISON: Located Within [facility], , TESTICLE IMAGING, 11/17/2017, 8:58. FINDINGS: Right: Testicle is normal in size at 2.7 x 2.0 x 2.4 cm, and homogenous in echotexture. Epididymis is normal in overall size and morphology. 1.0 centimeter simple cyst in the head of the epididymis. There is a 6.7 x 3.6 by 6.4 centimeter complex cystic lesion in the right scrotum adjacent to the epididymal head which is without significant change compared to prior exam which may represent an extratesticular spermatocele. No hydrocele or varicoceles. Overlying scrotal skin is normal in thickness. Left: Testicle is normal in size at 3.0 x 2.1 x 2.7 cm, and homogeneous in echotexture. Epididymis is normal in overall size and morphology. Small left hydrocele. No varicoceles. Overlying scrotal skin is normal in thickness. Doppler: Color and pulse Doppler demonstrate normal and symmetric arterial flow in both testicles. IMPRESSION: No evidence of testicular torsion, orchitis or epididymitis. Large 6.7 x 3.6 by 6.4 centimeter complex right scrotal cyst that is without significant change compared to November 17, 2017. 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 Recommend urology consultation. Small 1.0 centimeter simple right epididymal head cyst. Small left hydrocele. MDM Narrative Medical decision making narrative: Patient has a superficial abrasion over the scrotum. It is very small most likely related to a superficial trauma. Ultrasound shows what appears to be a spermatocele that is unchanged from prior however I did recommend to the patient he follow-up with Urology. I will send the patient home with a small piece of Gel-Foam that he can use over the area as needed for the bleeding. He was given return precautions and follow-up instructions. He expressed understanding and agreement with plan. Discharge Plan Departure Patient Disposition: Home Clinical Impression: Abrasion of scrotum, Spermatocele Instructions: DI for Abrasion Activity Restrictions/Additional Instructions: Continue to take all of your medications as directed. I do recommend that you contact your primary doctor and also the urologist at the number provided below for a follow-up appointment. Return to the emergency department for new symptoms like we discussed. Prescriptions: No Action famotidine 20 MG tablet 20 mg PO QDAY Qty: 0 amlodipine 5 mg tablet 5 mg PO DAILY Qty: 90 3RF atorvastatin 10 mg tablet 10 mg PO DAILY Qty: 90 3RF multivitamin Tablet 1 tab PO DAILY lutein-zeaxanthin 20 mg- 1,000 mcg capsule 2 cap PO DAILY naproxen sodium [Aleve] 220 mg Capsule 220 mg PO DAILY PRN (Reason: Pain) Unisom (doxylamine) 25 mg tablet 25 mg PO BEDTIME PRN (Reason: Sleep) magnesium 250 mg tablet 250 mg PO DAILY fluticasone propionate [Flonase Allergy Relief] 50 mcg/actuation spray,suspension 1 spray intranasal DAILY PRN (Reason: Seasonal allergies) Rx Instructions: administer into each nostril Referrals: Miguel Angel Hdz DO [Physician] - Obi Horton MD [Primary Care Provider] - Stand Alone Forms: Patient Portal/API/Survey
== END 2024-11-07 10:04 | disposition home or self-care (01) ==
PROVIDERS: Emergency Provider Emergency Medicine; Family Provider Internal Medicine; PCP Internal Medicine
DX: N43.40 Spermatocele of epididymis, unspecified (principal); S30.813A Abrasion of scrotum and testes, initial encounter; X58.XXXA Exposure to other specified factors, initial encounter; Y93.E1 Activity, personal bathing and showering
CPT/HCPCS: 76870; 93975; 99283

== ENCOUNTER → 2024-12-05 09:26 | Outpatient (CLI) | payer OTHER, SELFPAY ==
[2024-12-05 10:21] LABS: Aspartate Aminotransferase 30 IU/L (17-59); BUN Creatinine Ratio 28.4 (6-22); Blood Urea Nitrogen 27 mg/dL (9-20); Carbon Dioxide 28 mmol/L (22-32); Chloride 102 mmol/L (98-107); Cholesterol 120 mg/dL (140-199); Estimated Glomerular Filt Rate > 60 mL/min (>60); Glucose 74 mg/dL (80-110); HDL Cholesterol 70 mg/dL (40-60); HEMOLYSIS 21 (0-50); LDL Cholesterol Calculated 28 mg/dL (<100); Potassium 4.7 mmol/L (3.4-5.1); Sodium 135 mmol/L (137-145); Triglycerides 109 mg/dL (35-150)
[2024-12-05 10:24] LABS: Hemoglobin A1C% w Est Avg Glu 5.1 % (4.0-6.0)
[2024-12-05 10:57] LABS: Prostate Specific Antigen < 0.064 ng/mL (0.10-4.00)
== END ==
PROVIDERS: Family Provider Internal Medicine; PCP Internal Medicine; Referring Provider Urology; Visit Provider Urology
DX: R73.01 Impaired fasting glucose (principal); E78.2 Mixed hyperlipidemia; I10 Essential (primary) hypertension; Z85.46 Personal history of malignant neoplasm of prostate
CPT/HCPCS: 36415; 80048; 80061; 83036; 84153; 84450